=== PATIENT | male | born 1975 | race Caucasian/White ===

== ENCOUNTER 2016-09-21 16:51 | Emergency (ER) | payer BC ==
[~2016-09-21] VITALS: Ht 175.3 cm; Wt 106.6 kg
[2016-09-21 16:53] VITALS: TEMP 36.7; Ht 175.3 cm; Wt 106.6 kg
[2016-09-21 17:41] LABS: HEMATOCRIT 41.2 % (42-52); MEAN CELL VOLUME 87.5 fL (80-100); MEAN CORPUSCULAR HEMOGLOBIN 31.6 pg (25-34); MEAN CORPUSCULAR HGB CONC 36.2 g/dl (32-36); MEAN PLATELET VOLUME 9.7 fL (7.4-10.4); PLATELET COUNT 136 K/uL (130-400); RED BLOOD COUNT 4.71 M/uL (4.7-6.1); WHITE BLOOD COUNT 14.44 K/uL (4.8-10.8)
[2016-09-21 18:00] LABS: BUN/CREATININE RATIO 32.6 (10-20); CALCIUM 8.3 mg/dl (8.5-10.1); CREATININE 0.7 mg/dl (0.60-1.40); POTASSIUM 4.2 mmol/L (3.5-5.1)
[2016-09-21 18:04] LABS: COMPLETE YES; LYMPH ABS # 0.25 K/uL (1.2-3.4); LYMPHOCYTE % 1.7 %; META ABS # 0.13 K/uL (0-0); METAMYELOCYTE % 0.9 %; MYELOCYTE % 0.9 %; NEUTROPHILS % 90.4 %
--- NOTE | 2016-09-21 18:04 | DIAGNOSTIC IMAGING REPORT ---
CT OF THE HEAD WITHOUT CONTRAST CLINICAL HISTORY: Discharge from incision. Brain surgery on August 26, 2016. COMPARISON STUDY: No previous studies for comparison. CT DOSE: 537.48 mGy.cm TECHNIQUE: Helical axial images of the head were obtained without IV contrast. Automated exposure control was utilized for the study. FINDINGS: A frontal temporal craniotomy is noted. There is a small mixed attenuation extra-axial collection within the operative bed that measures 7 mm in thickness. The collection contains a small amount of gas. There is minimal pneumocephalus. Hypodensity within the anterior inferior right frontal lobe could reflect a resection cavity. There is a 4 x 3.6 cm hyperdense focus within the anterior right frontal lobe. Possible involvement of the anterior aspect of the corpus callosum. Findings are suboptimally assessed on this unenhanced exam. There is mass effect upon the frontal horn of the right lateral ventricle. There is a 5 mm of leftward midline shift. Basilar cisterns are patent. There are no CT findings to suggest acute dural sinus thrombosis or acute territorial infarct. Visualized portions of the sinuses and mastoid air cells are clear. There several locules of gas within the left temporal scalp. No significant extracranial fluid collection is present. IMPRESSION: 1. Findings consistent with recent frontotemporal craniotomy. Small mixed attenuation operative bed fluid collection which contains a small amount of gas. Right frontal resection cavity and a 4 x 3.6 cm adjacent hyperdense focus which is suboptimally assessed on this unenhanced exam. Residual tumor would be difficult to exclude. Moderate mass effect with compression of the frontal horn of the right lateral ventricle and minimal leftward midline shift. Correlation with prior postsurgical imaging studies would be of benefit given these nonspecific findings. 2. Minimal scalp soft tissue gas. No significant scalp fluid collection. Electronically signed by: Roe Daniel M.D. 09/21/2016 6:02 PM Dictated Date/Time: 09/21/2016 5:52 PM
[2016-09-21] MEDS ORDERED: PRLSR20 PO (18:14)
[2016-09-21] MEDS ORDERED: LONG ACTING INSULIN SC (18:14)
[2016-09-21] MEDS ORDERED: DXM/4 PO (18:14)
[2016-09-21] MEDS ORDERED: LEVE250T PO (18:14)
[2016-09-21] MEDS ORDERED: LISI-729 PO (18:14)
[2016-09-21] MEDS ORDERED: INSU100I SC (18:14)
[2016-09-21] MEDS ORDERED: AMPICILLIN/SULBACTAM SOD INJ 3,000 MG in SODIUM CHLORIDE 0.9% 100ML 100 ML IV ONE (18:30)
[2016-09-21] MEDS ORDERED: DEXAMETHASONE 4 MG TAB PO ONE (18:30)
[2016-09-21] MEDS ORDERED: LEVETIRACETAM 500 MG TAB PO SCH (18:30)
[2016-09-21] MEDS ORDERED: FAMOTIDINE 20 MG TAB PO ONE (18:30)
--- NOTE | 2016-09-21 19:25 | EMERGENCY ROOM VISIT NOTE ---
History Report prepared by Primitivo: Arturo Taylor Under the Supervision of: Dr. Brandon Whitlock D.O. First contact with patient: 17:00 Chief Complaint: WOUND INFECTION Stated Complaint: DRAINAGE FROM INCICION,BRAIN SURGERY 08-26 Nursing Triage Summary: Patient reports he had a brain resection patient has stage IV globlastoma states this was done in [place] he and his noticed yellow drainage from the incision today. History of Present Illness The patient is a 41 year old male who presents to the Emergency Room with complaints of resolved drainage from a post-surgical incision. The patient had a brain tumor removed on August 26. The patient was diagnosed with Stage IV Glioblastoma. The surgery was performed in [place]. He was walking today when his noticed drainage from the incision, which is currently resolved. He is on Decadron. Patient denies headache, change in vision, fevers, chest pain , shortness of breath, nausea, vomiting, diarrhea, pain with urination, melena, weakness, or numbness. Source of History: patient, spouse/significant other Onset: today Position: head Quality: other (post-surgical bleeding) Timing: resolved Associated Symptoms: No SOB, No chest pain, No diarrhea, No fevers, No headache, No melena, No nausea, No numbness, No urinary symptoms, No vomiting, No weakness Review of Systems See HPI for pertinent positives & negatives. A total of 10 systems reviewed and were otherwise negative. Past Medical & Surgical Medical Problems: (1) Glioblastoma Family History No pertinent family history Social History Smoking Status: Never Smoker Marital Status: Housing Status: lives with family Current/Historical Medications Scheduled Dexamethasone (Decadron), 4 MG PO QID Insulin Lispro (Human) (Humalog), 1 DOSE SC TIDM Levetiracetam (Keppra), 500 MG PO BID Lisinopril (Zestril), Unknown Dose PO QAM Omeprazole (Prilosec), 40 MG PO BID [Long Acting Insulin], 50 UNITS SC HS Scheduled PRN Polyethylene Glycol 3350 (Miralax), 17 GM PO DAILY PRN for Constipation Allergies Coded Allergies: No Known Allergies (Unverified , 09/21/16) Physical Exam Vital Signs Date Time Temp Pulse Resp B/P Pulse Ox O2 Delivery O2 Flow Rate FiO2 09/21/16 20:46 60 20 137/74 98 09/21/16 19:58 63 20 119/70 99 Room Air 09/21/16 18:07 65 16 123/72 97 Room Air 09/21/16 16:53 36.7 73 20 114/73 97 Room Air Physical Exam GENERAL: Sitting up in bed, alert, well appearing, well nourished, no distress, non-toxic HEAD: Sagittal incision tracking from left parietal to right parietal region, purulent yellow discharge expressed EYE EXAM: normal conjunctiva, PERRL and EOM's grossly intact from incision in left parietal region. OROPHARYNX: no exudate, no erythema, lips, buccal mucosa, and tongue normal and mucous membranes are moist NECK: supple, no nuchal rigidity, no adenopathy, non-tender LUNGS: Clear to auscultation. Normal chest wall mechanics HEART: no murmurs, S1 normal and S2 normal ABDOMEN: abdomen soft, non-tender, normo-active bowel sounds, no masses, no rebound or guarding. BACK: Back is symmetrical on inspection and there is no deformity, no midline tenderness, no CVA tenderness. SKIN: no rashes and no bruising UPPER EXTREMITIES: upper extremities are grossly normal. LOWER EXTREMITIES: No pitting edema. NEURO EXAM: Normal sensorium, cranial nerves II-XII intact, normal speech, no weakness of arms, no weakness of legs. No drift. Finger to nose intact. Gross sensation intact. Medical Decision & Procedures ER Provider Diagnostic Interpretation: Radiology results as stated below per my review and the radiologist's interpretation: CT OF THE HEAD WITHOUT CONTRAST CLINICAL HISTORY: Discharge from incision. Brain surgery on August 26, 2016. COMPARISON STUDY: No previous studies for comparison. CT DOSE: 537.48 mGy.cm TECHNIQUE: Helical axial images of the head were obtained without IV contrast. Automated exposure control was utilized for the study. FINDINGS: A frontal temporal craniotomy is noted. There is a small mixed attenuation extra-axial collection within the operative bed that measures 7 mm in thickness. The collection contains a small amount of gas. There is minimal pneumocephalus. Hypodensity within the anterior inferior right frontal lobe could reflect a resection cavity. There is a 4 x 3.6 cm hyperdense focus within the anterior right frontal lobe. Possible involvement of the anterior aspect of the corpus callosum. Findings are suboptimally assessed on this unenhanced exam. There is mass effect upon the frontal horn of the right lateral ventricle. There is a 5 mm of leftward midline shift. Basilar cisterns are patent. There are no CT findings to suggest acute dural sinus thrombosis or acute territorial infarct. Visualized portions of the sinuses and mastoid air cells are clear. There several locules of gas within the left temporal scalp. No significant extracranial fluid collection is present. IMPRESSION: 1. Findings consistent with recent frontotemporal craniotomy. Small mixed attenuation operative bed fluid collection which contains a small amount of gas. Right frontal resection cavity and a 4 x 3.6 cm adjacent hyperdense focus which is suboptimally assessed on this unenhanced exam. Residual tumor would be difficult to exclude. Moderate mass effect with compression of the frontal horn of the right lateral ventricle and minimal leftward midline shift. Correlation with prior postsurgical imaging studies would be of benefit given these nonspecific findings. 2. Minimal scalp soft tissue gas. No significant scalp fluid collection. Electronically signed by: Roe Daniel M.D. 09/21/2016 6:02 PM Dictated Date/Time: 09/21/2016 5:52 PM Laboratory Results 09/21/16 17:25 Red Blood Count 4.71, Mean Corpuscular Volume 87.5, Mean Corpuscular Hemoglobin 31.6, Mean Corpuscular Hemoglobin Concent 36.2, Mean Platelet Volume 9.7 09/21/16 17:25 Test 09/21/16 17:25 White Blood Count 14.44 K/uL (4.8-10.8) Red Blood Count 4.71 M/uL (4.7-6.1) Hemoglobin 14.9 g/dL (14.0-18.0) Hematocrit 41.2 % (42-52) Mean Corpuscular Volume 87.5 fL (80-100) Mean Corpuscular Hemoglobin 31.6 pg (25-34) Mean Corpuscular Hemoglobin Concent 36.2 g/dl (32-36) Platelet Count 136 K/uL (130-400) Mean Platelet Volume 9.7 fL (7.4-10.4) RDW Standard Deviation 44.0 fL (36.4-46.3) RDW Coefficient of Variation 13.7 % (11.5-14.5) Neutrophils % (Manual) 90.4 % Lymphocytes % (Manual) 1.7 % Monocytes % (Manual) 6.1 % Metamyelocytes % 0.9 % Myelocytes % 0.9 % Neutrophils # (Manual) 13.05 K/uL (1.4-6.5) Total Absolute Neutrophils 13.05 K/uL (1.4-6.5) Lymphocytes # (Manual) 0.25 K/uL (1.2-3.4) Total Absolute Lymphocytes 0.25 K/uL (1.2-3.4) Monocytes # (Manual) 0.88 K/uL (0.11-0.59) Metamyelocytes # 0.13 K/uL (0-0) Myelocytes # 0.13 K/uL (0-0) Red Blood Cell Morphology Unremarkable Anion Gap 7.0 mmol/L (3-11) Est Creatinine Clear Calc Drug Dose 165.4 ml/min Estimated GFR () 134.9 Estimated GFR (Non- 116.4 BUN/Creatinine Ratio 32.6 (10-20) Calcium Level 8.3 mg/dl (8.5-10.1) Laboratory results per my review. Medications Administered Medications (Trade) Dose Ordered Sig/Marianne Route Start Time Stop Time Status Last Admin Dose Admin Levetiracetam (Keppra Tab) 500 mg NOW PO 09/21/16 18:30 09/21/16 20:58 DC 09/21/16 18:39 500 MG Dexamethasone (Decadron Tab) 4 mg NOW ONCE PO 09/21/16 18:30 09/21/16 18:31 DC 09/21/16 18:39 4 MG Famotidine 20 mg 20 mg NOW ONCE PO 09/21/16 18:30 09/21/16 18:31 DC 09/21/16 18:39 20 MG Ampicillin Sodium/ Sulbactam Sodium/ Sodium Chloride (Unasyn Inj/Nss 100ml) 108 ml @ 200 mls/hr ONE ONCE IV 09/21/16 18:30 09/21/16 19:02 DC 09/21/16 18:38 200 MLS/HR ED Course ED COURSE: Vital signs were reviewed and were normal. The patients medical record was reviewed The above diagnostic studies were performed and reviewed. ED treatments and interventions as stated above. 1702: The patient was evaluated in room A9b. A complete history and physical examination was performed. 1825: Discussed the case with Dr. Perez, [facility] Neurosurgeon. The patient was accepted for transfer. 1829: Ampicillin Sodium / Sulbactam Sodium 3000 mg / NSS 108 ml @ 200 mls/hr, Famotidine 20 mg PO, Decadron 4 mg PO, Keppra 500 mg PO. 1845: Updated the patient. 1929: Upon reevaluation, the patient is doing well.I discussed my findings with the patient and he understands and agrees with the treatment plan. Based on the patients age, coexisting illnesses, exam and lab findings the decision to treat as an inpatient was made. The patient remained stable while under my care. The patient will be evaluated for further management. Medical Decision Differential diagnosis includes etiologies such as cellulitis, abscess, MRSA infection, DVT, necrotizing fasciitis, dermatitis, drug eruption, as well as others were entertained. Patient is a 41-year-old male who presents the ER postop from brain surgery performed at [facility] in the [facility]. He had a GBM removed on August [address] Quintero. He presents today with no other complaints with the exception of a purulent yellow discharge from the left side of his head. He denies any fevers or headaches. No stiff neck. He does take steroids and Keppra. There was a mild leukocytosis of 14,000. BMP was unremarkable. On exam I was able to express a fair amount of yellow purulent discharge from the left side of his scalp. I do favor this is likely a superficial between the skin and skull. I discussed this with neurosurgery at [facility]. He preferred to evaluate him personally. I discussed this with family and they are agreeable in transfer. Patient was accepted to room 5034. He was given a dose of Ancef. CT of his head shows postoperative changes with a 4 mm shift. Patient has absolutely no complaints and is completely neurologically intact based and consequently I felt it was reasonable to transfer him by private vehicle as the did want to go with him and drive him. Consults Time Called: 1819 Consulting Physician: Dr. Perez, [facility] Neurosurgeon. Returned Call: [phone]: Discussed the case with Dr. Perez, [facility] Neurosurgeon. The patient was accepted for transfer. Impression Primary Impression: Post op infection Scribe Attestation The scribe's documentation has been prepared under my direction and personally reviewed by me in its entirety. I confirm that the note above accurately reflects all work, treatment, procedures, and medical decision making performed by me. Departure Information Dispostion Transfer Acute Care Facility Referrals Kris Soler M.D. (PCP) Patient Instructions My [facility]
[2016-09-21 20:46] VITALS: BP 137/74; PULSE 60; O2SAT 98
--- NOTE | 2016-09-23 11:10 | Pharmacy Progress Note ---
ED Pharmacist Culture FollowUp Date of Service: Sep 23, 2016. Patient's scalp surgical site drainage culture from 09/21/16 is growing mcpherson- sensitive staph aureus. This patient was transferred to [facility] on 09/21. I contacted [facility] today and spoke with his nurse Ivonne ([phone]). The patient is still admitted there. I faxed the culture results to the nurse's station there ([phone]) and Ivonne will forward to the patient's provider(s).
[2016-10-15] MEDS ORDERED: HYDR-3983 PO (10:38)
[2016-10-15] MEDS ORDERED: HMLI7525 SC (10:38)
[2016-10-15] MEDS ORDERED: ALPR-411 PO (10:38)
[2016-10-15] MEDS ORDERED: INSDGI SC (10:38)
[2016-10-15] MEDS ORDERED: PRLSR20 PO (10:38)
[2016-10-28] MEDS ORDERED: TEMO1CAP PO (09:03)
[2016-10-28] MEDS ORDERED: TEMO1CAP11 PO (09:03)
[2016-10-28] MEDS ORDERED: TEMO100I PO (09:04)
[2016-10-28] MEDS ORDERED: ALPHTAB4 PO (09:04)
[2016-10-28] MEDS ORDERED: SERT50TA PO (09:04)
[2017-01-09] MEDS ORDERED: TEMO1CAP4 PO (15:25)
[2017-01-09] MEDS ORDERED: TEMO100I PO (15:25)
[2017-05-08] MEDS ORDERED: METF1TAB85 PO (09:04)
[2017-05-08] MEDS ORDERED: ONDA8TAB6 PO (09:04)
[2017-05-08] MEDS ORDERED: LATA0.5S OPB (09:12)
[2017-05-08] MEDS ORDERED: MECL1TAB42 PO (09:48)
[2017-05-08] MEDS ORDERED: PANT40TA PO (10:25)
[2017-05-08] MEDS ORDERED: LISI10TA PO (10:38)
[2017-05-08] MEDS ORDERED: AMLO-114 PO (10:38)
[2017-05-08] MEDS ORDERED: SERT-234 PO (11:23)
[2017-05-08] MEDS ORDERED: POLY335019 PO (18:14)
== END 2016-09-21 20:35 | disposition short-term general hospital (02) ==
LOC: C.EDB 16:51 → C.EDA 20:35
DX: T81.4XXA Infection following a procedure, initial encounter (principal); Z79.899 Other long term (current) drug therapy; Z85.841 Personal history of malignant neoplasm of brain; Y84.9 Medical procedure, unspecified as the cause of abnormal reaction of the patient, or of later complication, without mention of misadventure at the time of the procedure; Z79.4 Long term (current) use of insulin

== ENCOUNTER → 2016-10-19 | Outpatient (CLI) | payer BC ==
[~2016-10-19] MED LIST: ACET-1256 PO; ALPHTAB4 PO; ALPR-411 PO; AMLO-114 PO; AMOX875T PO; DEXA2TAB PO; DXM/4 PO; HMLI7525 SC; HYD10 PO; HYDR-3983 PO; HYDR10TA52 PO; INSDGI SC; INSU100I2 SQ; INSU100I23 SQ; KPP/1000 PO; LATA0.5S OPB; LEVE250T PO; LEVE500T13 PO; LISI10TA PO; MECL1TAB42 PO; METF1TAB85 PO; ONDA8TAB6 PO; PANT40TA PO; POLY335019 PO; PRLSR20 PO; SERT-234 PO; SERT50TA PO; TEMO100I PO; TEMO1CAP PO; TEMO1CAP11 PO; TEMO1CAP17 PO; TEMO1CAP4 PO; VANC1INJ9 IV.; VANC1INJ94 IV
[2016-10-19 11:59] LABS: BLOOD UREA NITROGEN 18 mg/dl (7-18); CALCIUM 8.6 mg/dl (8.5-10.1); CARBON DIOXIDE 26 mmol/L (21-32); CHLORIDE 98 mmol/L (98-107); CREATININE 0.85 mg/dl (0.60-1.40); GLUCOSE 166 mg/dl (70-99); POTASSIUM 4.1 mmol/L (3.5-5.1); SODIUM 134 mmol/L (136-145)
== END | disposition home or self-care (01) ==
LOC: C.LAB 11:01
PROVIDERS: ATTEND Family Medicine
DX: E11.9 Type 2 diabetes mellitus without complications (principal)

== ENCOUNTER 2016-11-01 20:49 | Inpatient (IN) | payer BC ==
[~2016-11-01] VITALS: Ht 175.3 cm; Wt 100.0 kg
[~2016-11-01 20:49] MED LIST changes: -ACET-1256 PO; -AMLO-114 PO; -AMOX875T PO; -DEXA2TAB PO; -DXM/4 PO; -HYD10 PO; -HYDR10TA52 PO; -INSDGI SC; -INSU100I2 SQ; -INSU100I23 SQ; -KPP/1000 PO; -LATA0.5S OPB; -LEVE500T13 PO; -LISI10TA PO; -MECL1TAB42 PO; -METF1TAB85 PO; -ONDA8TAB6 PO; -PANT40TA PO; -POLY335019 PO; -SERT-234 PO; -TEMO1CAP17 PO; -TEMO1CAP4 PO; -VANC1INJ9 IV.; -VANC1INJ94 IV
[2016-11-01] MEDS ORDERED: LEVETIRACETAM IV 1,000 MG in DEXTROSE 5% 100ML 100 ML IV STA (21:09)
[2016-11-01] MEDS ORDERED: SODIUM CHLORIDE 0.9% 1000ML 1,000 ML IV STA (21:09)
[2016-11-01 22:07] LABS: BASO % 0.3 %; BASO ABS # 0.03 K/uL (0-0.2); COMPLETE YES; EOS % 0.4 %; HEMATOCRIT 34.6 % (42-52); IG% 3.3 %; LYMPH % 14.3 %; LYMPH ABS # 1.52 K/uL (1.2-3.4); MEAN CELL VOLUME 92.8 fL (80-100); MEAN CORPUSCULAR HEMOGLOBIN 31.6 pg (25-34); MEAN CORPUSCULAR HGB CONC 34.1 g/dl (32-36); MEAN PLATELET VOLUME 8.9 fL (7.4-10.4); MONO % 11.1 %; NEUT % 70.6 %; PLATELET COUNT 173 K/uL (130-400); RED BLOOD COUNT 3.73 M/uL (4.7-6.1)
[2016-11-01 22:19] LABS: PARTIAL THROMBOPLASTIN RATIO 1.1; PROTHROMBIN TIME (PATIENT) 11.1 SECONDS (9.0-12.0)
[2016-11-01 22:24] LABS: CREATININE 0.77 mg/dl (0.60-1.40); MAGNESIUM 1.8 mg/dl (1.8-2.4)
--- NOTE | 2016-11-01 22:30 | DIAGNOSTIC IMAGING REPORT ---
CT OF THE HEAD WITHOUT CONTRAST CLINICAL HISTORY: Seizure. Glioblastoma. COMPARISON STUDY: Head CT September 21, 2016 and MRI of the brain September 23, [address] October 17, 2016. CT DOSE: 537.48 mGy.cm TECHNIQUE: Helical axial images of the head were obtained without IV contrast. Automated exposure control was utilized for the study. FINDINGS: Postsurgical findings consistent with a bifrontal craniotomy are noted. A right anterior right frontal resection cavity is noted. An operative bed extra-axial collection has decreased in size since exam of September 21, 2016. This measures 7 mm in thickness and is mixed attenuation. A small amount of blood products with thin the extraaxial collection may be present. A hyperdensity, measuring approximately 4.7 x 4.2 cm along the posterior aspect of the resection bed is again noted. This likely contains a few punctate calcifications. This appears to extend into the rostrum and genu of the corpus callosum. There is adjacent hypodensity. Compression upon the frontal horns of the lateral ventricles is similar to prior exam. There is no hydrocephalus. Basilar cisterns are patent. There are no CT findings to suggest acute dural sinus thrombosis or acute territorial infarct. There are no calvarial fractures. IMPRESSION: 1. Status post bifrontal craniotomy. Interval decrease in size of the small mixed attenuation operative bed extra-axial collection since prior exam. 2. Hyperdense mass-like abnormality along the posterior aspect of the right frontal resection margin which appears to extend into the corpus callosum and across the midline. This is suboptimally assessed by CT but raises the possibility of residual/recurrent tumor. Postsurgical change or radiation necrosis could appear similar. Electronically signed by: Roe Daniel M.D. 11/01/2016 10:28 PM Dictated Date/Time: 11/01/2016 10:11 PM
[2016-11-01 22:31] LABS: CALCIUM 8.5 mg/dl (8.5-10.1)
[2016-11-01 22:33] LABS: URINE APPEARANCE CLEAR (CLEAR); URINE BILIRUBIN NEG (NEG); URINE COLOR YELLOW; URINE NITRITE NEG (NEG); URINE SPECIFIC GRAVITY 1.009 (1.000-1.030); UROBILINOGEN NEG (NEG)
[2016-11-01 22:34] LABS: PHOSPHORUS 2.6 mg/dl (2.5-4.9); THYROID STIMULATING HORMONE 2.01 uIu/ml (0.300-4.500)
[2016-11-01 22:34] LABS: MANUAL MICROSCOPIC REQUIRED? NO; REVIEW REQ? NO
--- NOTE | 2016-11-01 23:20 | EMERGENCY ROOM VISIT NOTE ---
History Report prepared by Primitivo: Manuel Ahmadi Under the Supervision of: Dr. Karan Friedman M.D. First contact with patient: 21:06 Chief Complaint: SEIZURE Stated Complaint: SEIZURE Nursing Triage Summary: Pt has history of brain cancer with resection in August and I&D of incision in September. Pt started chemo Friday. Today patient had a seizure that described as 10 minutes long. Pt fell and hit head during seizure. No signs of trauma. Pt vomited 2 times during seizure. denied post ictal phase. Pt denies any pain at this time. Pt missed dose of Keppra at 1800 History of Present Illness The patient is a 41 year old male who presents to the Emergency Room for evaluation of intermittent episodes of seizure-like activity occurring shortly prior to arrival. He has a history of petit mal seizures and is on Keppra. He has a history of glioblastoma. He had a resection two months ago and an incision & drainage of the incision last month. The patient started chemotherapy and radiation treatments five days ago. He has been working to take less dexamethasone due to side effects and stopped taking it last month. He missed his dose of Keppra three hours ago. Per , the patient called her into the room because he was feeling dizzy shortly prior to arrival. She states that the patient's face went blank, and he fell backwards into her arms. She states that he passed out a second time, falling into her arms again, and did not remember passing out the first time. She states that the patient passed out a third time, and hit his head during the fall. The patient's states that the patient was unconscious following the final episode. She notes that the patient has had problems with short term memory loss this past week. She also notes that the patient self administered his chemotherapy today. The patient also complains of a headache. He denies any visual changes. Source of History: patient, spouse/significant other () Onset: Shortly prior to arrival Quality: other (seizure-like activity) Timing: intermittent, other (episode) Associated Symptoms: + headache Note: The patient denies any visual changes. Review of Systems See HPI for pertinent positives & negatives. A total of 10 systems reviewed and were otherwise negative. Past Medical & Surgical Medical Problems: (1) Glioblastoma Family History No pertinent family history Social History Smoking Status: Former Smoker Marital Status: Housing Status: lives with family Current/Historical Medications Scheduled Rrfsd-J-Tznzvwgqhdpuy (Beano), 1 TAB PO TID Amlodipine (Norvasc), 10 MG PO DAILY Dexamethasone (Decadron), 4 MG PO BID Latanoprost (Xalatan 0.005% Oph Yulia), 1 DROPS OP HS Levetiracetam (Keppra), 1 TAB PO BID Lisinopril (Prinivil), 10 MG PO DAILY Metformin Hcl (Metformin Hcl Er), 1,000 MG PO BID Omeprazole (Prilosec), 20 MG PO BID Sertraline (Zoloft), 1 TAB PO DAILY Temozolomide (Temodar), 10 MG PO DAILY Temozolomide (Temodar), 60 MG PO DAILY Temozolomide (Temodar), 100 MG PO DAILY Scheduled PRN Ondansetron Hcl (Zofran), 8 MG PO Q8 PRN for Nausea Polyethylene Glycol 3350 (Miralax), 17 GM PO DAILY PRN for Constipation Allergies Coded Allergies: No Known Allergies (Unverified , 11/01/16) Physical Exam Vital Signs Date Time Temp Pulse Resp B/P Pulse Ox O2 Delivery O2 Flow Rate FiO2 11/02/16 02:00 94 Nasal Cannula 2.0 11/02/16 01:58 97 21 106/80 88 Room Air 11/02/16 00:03 98 18 105/65 91 Room Air 11/01/16 22:49 94 18 126/77 92 Room Air 11/01/16 22:00 96 18 110/69 92 Room Air 11/01/16 20:58 96 11/01/16 20:56 94 Room Air 11/01/16 20:56 37.1 98 18 111/62 93 Room Air Physical Exam GENERAL: Patient is a healthy-appearing well-nourished HEAD: Normocephalic atraumatic EYES: Ocular movements intact pupils equal and react to light OROPHARYNX mucous membranes are moist no exudates present no erythema or edema present NECK: Supple no nuchal rigidity CHEST: Good equal expansion LUNGS: Clear and equal to auscultation CARDIAC: Normal S1 and S2 ABDOMEN: Soft nontender no guarding BACK: No CVA tenderness EXTREMITIES: No pain upon palpation normal muscle strength in all groups no clubbing cyanosis or edema NEURO: Patient is following commands is answering questions appropriately. Alert and oriented x3 Cranial Nerves 2-12 grossly intact Medical Decision & Procedures ER Provider Diagnostic Interpretation: CT results as stated below per my review and radiologist interpretation: CT OF THE HEAD WITHOUT CONTRAST FINDINGS: Postsurgical findings consistent with a bifrontal craniotomy are noted. A right anterior right frontal resection cavity is noted. An operative bed extra-axial collection has decreased in size since exam of September 21, 2016. This measures 7 mm in thickness and is mixed attenuation. A small amount of blood products with thin the extraaxial collection may be present. A hyperdensity, measuring approximately 4.7 x 4.2 cm along the posterior aspect of the resection bed is again noted. This likely contains a few punctate calcifications. This appears to extend into the rostrum and genu of the corpus callosum. There is adjacent hypodensity. Compression upon the frontal horns of the lateral ventricles is similar to prior exam. There is no hydrocephalus. Basilar cisterns are patent. There are no CT findings to suggest acute dural sinus thrombosis or acute territorial infarct. There are no calvarial fractures. IMPRESSION: 1. Status post bifrontal craniotomy. Interval decrease in size of the small mixed attenuation operative bed extra-axial collection since prior exam. 2. Hyperdense mass-like abnormality along the posterior aspect of the right frontal resection margin which appears to extend into the corpus callosum and across the midline. This is suboptimally assessed by CT but raises the possibility of residual/recurrent tumor. Postsurgical change or radiation necrosis could appear similar. Electronically signed by: Roe Daniel M.D. MRI results per [facility] and my review. MRI HEAD: Prior CT 11/01/16 report available. Postoperative changes in the right frontal lobe with heterogeneous enhancement at the posterior aspect of the postoperative bed, cannot exclude residual/ recurrent tumor. Compare to prior MRI if available. Abnormal signal in the right frontal lobe extending across the corpus callosum with mass effect on the bilateral frontal horns, as seen on prior CT 10/17/16. An 8 mm rounded focus of restricted diffusion in the right frontal lobe at the inferior aspect of the resection bed. Heterogeneous right frontal extra-axial collection again seen. Laboratory Results 11/01/16 21:55 Red Blood Count 3.73, Mean Corpuscular Volume 92.8, Mean Corpuscular Hemoglobin 31.6, Mean Corpuscular Hemoglobin Concent 34.1, Mean Platelet Volume 8.9, Neutrophils (%) (Auto) 70.6, Lymphocytes (%) (Auto) 14.3, Monocytes (%) (Auto) 11.1, Eosinophils (%) (Auto) 0.4, Basophils (%) (Auto) 0.3, Neutrophils # (Auto ) 7.48, Lymphocytes # (Auto) 1.52, Monocytes # (Auto) 1.18, Eosinophils # (Auto ) 0.04, Basophils # (Auto) 0.03 11/01/16 21:55 Test 11/01/16 21:55 11/01/16 22:25 White Blood Count 10.60 K/uL (4.8-10.8) Red Blood Count 3.73 M/uL (4.7-6.1) Hemoglobin 11.8 g/dL (14.0-18.0) Hematocrit 34.6 % (42-52) Mean Corpuscular Volume 92.8 fL (80-100) Mean Corpuscular Hemoglobin 31.6 pg (25-34) Mean Corpuscular Hemoglobin Concent 34.1 g/dl (32-36) Platelet Count 173 K/uL (130-400) Mean Platelet Volume 8.9 fL (7.4-10.4) Neutrophils (%) (Auto) 70.6 % Lymphocytes (%) (Auto) 14.3 % Monocytes (%) (Auto) 11.1 % Eosinophils (%) (Auto) 0.4 % Basophils (%) (Auto) 0.3 % Neutrophils # (Auto) 7.48 K/uL (1.4-6.5) Lymphocytes # (Auto) 1.52 K/uL (1.2-3.4) Monocytes # (Auto) 1.18 K/uL (0.11-0.59) Eosinophils # (Auto) 0.04 K/uL (0-0.5) Basophils # (Auto) 0.03 K/uL (0-0.2) RDW Standard Deviation 48.2 fL (36.4-46.3) RDW Coefficient of Variation 14.2 % (11.5-14.5) Immature Granulocyte % (Auto) 3.3 % Immature Granulocyte # (Auto) 0.35 K/uL (0.00-0.02) Prothrombin Time 11.1 SECONDS (9.0-12.0) Prothromb Time International Ratio 1.0 (0.9-1.1) Activated Partial Thromboplast Time 29.0 SECONDS (21.0-31.0) Partial Thromboplastin Ratio 1.1 Anion Gap 9.0 mmol/L (3-11) Est Creatinine Clear Calc Drug Dose 65.6 ml/min Estimated GFR () 129.7 Estimated GFR (Non- 111.9 BUN/Creatinine Ratio 17.0 (10-20) Calcium Level 8.5 mg/dl (8.5-10.1) Phosphorus Level 2.6 mg/dl (2.5-4.9) Magnesium Level 1.8 mg/dl (1.8-2.4) Thyroid Stimulating Hormone (TSH) 2.010 uIu/ml (0.300-4.500) Urine Color YELLOW Urine Appearance CLEAR (CLEAR) Urine pH 7.0 (4.5-7.5) Urine Specific Valier 1.009 (1.000-1.030) Urine Protein NEG (NEG) Urine Glucose (UA) TRACE (NEG) Urine Ketones 1+ (NEG) Urine Occult Blood NEG (NEG) Urine Nitrite NEG (NEG) Urine Bilirubin NEG (NEG) Urine Urobilinogen NEG (NEG) Urine Leukocyte Esterase NEG (NEG) Labs reviewed by ED physician. Medications Administered Medications (Trade) Dose Ordered Sig/Marianne Route Start Time Stop Time Status Last Admin Dose Admin Levetiracetam 1000 mg/Dextrose 110 ml @ 440 mls/hr ONE STAT IV 11/01/16 21:09 11/01/16 21:23 DC 11/01/16 21:59 440 MLS/HR Sodium Chloride (Nss 1000ml) 1,000 ml @ 999 mls/hr Q1H1M STAT IV 11/01/16 21:09 11/01/16 22:09 DC 11/01/16 21:59 999 MLS/HR ECG Indication: other (seizure) Rate (beats per minute): 98 Rhythm: normal sinus Findings: no acute ischemic change, no ectopy ED Course 2108: Ordered Sodium Chloride 1000 ml @ 999 mls/hr, Levetiracetam 1000 mg/ Dextrose 110 mL @ 440 mL/hr IV. 2112: Past medical records reviewed. The patient was evaluated in room B6. A complete history and physical examination was performed. 2315: Upon reexamination the patient is resting comfortably. I discussed results and treatment plan with the patient. He verbalizes agreement and understanding. I spoke with Dr. Abdul from the [facility] [place] [facility] Hospitalist Service. The patient will be evaluated for further management. Medical Decision Differential diagnosis: Etiologies such as infection, hypoglycemia, electrolyte abnormalities, cardiac sources, intracerebral event, trauma, toxicologic, neurologic, as well as others were entertained. This is a 41-year-old male who presents emergency Department with new onset seizure. The patient is being treated for glioblastoma stage IV and recently had a resection performed in [place]. Based on the 10 minute seizure that the patient had he was started on Keppra here in emergency department. He was sent for CAT scan of the head which was concerning for either radiation necrosis or recurrent tumor. Based on the findings I did send the patient for an MRI of the head. Also based on these findings and because of this a long holiday weekend I recommended that the patient be admitted to the hospital until he can see both oncology as well as neurology. Patient and family were in agreement with the treatment plan. Consults Time Called: [phone] Consulting Physician: Dr. Reese -Neurology Returned Call: [phone] Discussed the patient's case. Dr. Reese recommends that the patient have an increase to his dose of Keppra, and be hospitalized for observation. Additional Consults: Time Called: 2303 Consulted Physician: Dr. Nielsen -Oncology Returned Call: [phone] Additional Comments: I updated Dr. Nielsen on the patient's case. Time Called: 2309 Consulted Physician: Dr. Abdul -[facility] [place] Returned Call: 0 Additional Comments: I discussed the patient's case with Dr. Abdul, he has agreed to evaluate the patient for further management and care. Impression Primary Impression: Seizure Scribe Attestation The scribe's documentation has been prepared under my direction and personally reviewed by me in its entirety. I confirm that the note above accurately reflects all work, treatment, procedures, and medical decision making performed by me. Departure Information Dispostion Being Evaluated By Hospitalist Prescriptions Dexamethasone (DECADRON) 4 Mg Tab 4 MG PO BID, #60 TAB Prov: Eugene Aleman CRNP 11/02/16 Levetiracetam (KEPPRA) 1,000 Mg Tab 1 TAB PO BID for 30 Days, #60 TAB 5 Refills Prov: Eugene Aleman CRNP 11/02/16 Referrals Kris Soler M.D. (PCP) Patient Instructions [facility]
[2016-11-02] MEDS ORDERED: GADAVIST IV PRN
[2016-11-02] MEDS ORDERED: ALUMINUM/MAGNESIUM/SIMETH (MAALOX MAX) 30 ML UDC PO PRN (03:15)
[2016-11-02] MEDS ORDERED: POLYETHYLENE (MIRALAX) 17 GM PACK PO PRN (03:15)
[2016-11-02] MEDS ORDERED: ACETAMINOPHEN 325 MG TAB PO PRN (03:15)
[2016-11-02] MEDS ORDERED: NON-FORMULARY MEDICATION (Polyethylene Glycol 3350 (Miralax) 17 GM) PO PRN (03:15)
[2016-11-02] MEDS ORDERED: MAGNESIUM HYDROXIDE SUSP 30 ML UDC PO PRN (03:15)
[2016-11-02] MEDS ORDERED: ONDANSETRON INJ 2 MG/ML 2 ML VIAL IV PRN (03:15)
[2016-11-02] MEDS ORDERED: MoRPHine SULFATE 2 MG/ML CARP IV PRN (03:30)
--- NOTE | 2016-11-02 03:45 | History and Physical ---
History & Physical Date & Time of Service: November 02, 2016 at 03:11 Chief Complaint: Seizure Primary Care Physician: Kris Soler M.D. History of Present Illness Source: patient 41 y/o M Hx DM, HTN, SIMBA, Glioblastoma and seizure disorder. Presents following 2 seizure-like episodes where he lost consciousness for a few minutes. No incontinence or tongue biting was described. The pt had surgical resection of his tumor at [facility] in [place] 2 months prior and then required incision and drainage of the wound following due to infection. He sees a specialist at [facility] in addition to a local oncologist and recently began chemotherapy with Temozolomide and radiation. He was also on Dexamethasone for an extended period which he tapered off of and discontinued one week prior. He has a SHORT at the time of admission and denies fevers. Imaging obtained in the ER is nondiagnostic as it is read a possible extension of the tumor vs necrosis as an effect of radiation. Past Medical/Surgical History Medical Problems: (1) Glioblastoma Status: Chronic 2) HTN 3) HPL 4) DM 2 5) SIMBA Family History No pertinent family history Social History Smoking Status: Former Smoker Marital Status: Allergies Coded Allergies: No Known Allergies (Unverified , 11/01/16) Home Medications Scheduled [id number]-Q-Wiynknjcbufdz (Beano), 1 TAB PO TID Amlodipine (Norvasc), 10 MG PO DAILY Latanoprost (Xalatan 0.005% Oph Yulia), 1 DROPS OP HS Levetiracetam (Keppra), 500 MG PO BID Lisinopril (Prinivil), 10 MG PO DAILY Metformin Hcl (Metformin Hcl Er), 1,000 MG PO BID Omeprazole (Prilosec), 20 MG PO BID Sertraline (Zoloft), 1 TAB PO DAILY Temozolomide (Temodar), 10 MG PO DAILY Temozolomide (Temodar), 60 MG PO DAILY Temozolomide (Temodar), 100 MG PO DAILY Scheduled PRN Ondansetron Hcl (Zofran), 8 MG PO Q8 PRN for Nausea Polyethylene Glycol 3350 (Miralax), 17 GM PO DAILY PRN for Constipation Review of Systems Constitutional: No chills, No fever, No sweats Eyes: No worsening of vision ENT: No hearing loss, No nasal symptoms, No unusual epistaxis Respiratory: No cough, No sputum, No wheezing Cardiovascular: No PND, No chest pain, No orthopnea Abdomen: No nausea, No pain, No vomiting Musculoskeletal: No joint pain Genitourinary - Male: No dysuria, No hematuria, No urinary frequency Neurologic: + memory loss (chronic mild memory impairment), + problem reported (seizure activity - LOC x 2 as above) Psychiatric: No depression symptoms Endocrine: No fatigue Hematologic / Lymphatic: No abnormal bleeding/bruising Integumentary: No rash Physical Exam Vital Signs Date Time Temp Pulse Resp B/P Pulse Ox O2 Delivery O2 Flow Rate FiO2 11/02/16 02:00 94 Nasal Cannula 2.0 11/02/16 01:58 97 21 106/80 88 Room Air 11/02/16 00:03 98 18 105/65 91 Room Air 11/01/16 22:49 94 18 126/77 92 Room Air 11/01/16 22:00 96 18 110/69 92 Room Air 11/01/16 20:58 96 11/01/16 20:56 94 Room Air 11/01/16 20:56 37.1 98 18 111/62 93 Room Air General Appearance: WD/WN, no apparent distress Head: normocephalic, + pertinent finding (A well-healed sagital scar is present ) Eyes: normal inspection, PERRL, EOMI ENT: normal ENT inspection, pharynx normal Neck: supple, no JVD Respiratory/Chest: chest non-tender, lungs clear, normal breath sounds, no respiratory distress, no accessory muscle use Cardiovascular: regular rate, rhythm, no edema, no gallop, no JVD, no murmur, normal peripheral pulses Abdomen/GI: normal bowel sounds, non tender, soft Back: normal inspection, no CVA tenderness Extremities/Musculoskelatal: normal inspection, no calf tenderness, normal capillary refill, no pedal edema, normal range of motion Neurologic/Psych: metal caster II-XII nml as tested, no motor/sensory deficits, alert, normal mood/affect, normal reflexes, oriented x 3 Skin: normal color, warm/dry, no rash Diagnostics Laboratory Results Results Past 24 Hours Test 11/01/16 21:55 11/01/16 22:25 Range/Units White Blood Count 10.60 4.8-10.8 K/uL Red Blood Count 3.73 4.7-6.1 M/uL Hemoglobin 11.8 14.0-18.0 g/dL Hematocrit 34.6 42-52 % Mean Corpuscular Volume 92.8 80-100 fL Mean Corpuscular Hemoglobin 31.6 25-34 pg Mean Corpuscular Hemoglobin Concent 34.1 32-36 g/dl Platelet Count 173 130-400 K/uL Mean Platelet Volume 8.9 7.4-10.4 fL Neutrophils (%) (Auto) 70.6 % Lymphocytes (%) (Auto) 14.3 % Monocytes (%) (Auto) 11.1 % Eosinophils (%) (Auto) 0.4 % Basophils (%) (Auto) 0.3 % Neutrophils # (Auto) 7.48 1.4-6.5 K/uL Lymphocytes # (Auto) 1.52 1.2-3.4 K/uL Monocytes # (Auto) 1.18 0.11-0.59 K/uL Eosinophils # (Auto) 0.04 0-0.5 K/uL Basophils # (Auto) 0.03 0-0.2 K/uL RDW Standard Deviation 48.2 36.4-46.3 fL RDW Coefficient of Variation 14.2 11.5-14.5 % Immature Granulocyte % (Auto) 3.3 % Immature Granulocyte # (Auto) 0.35 0.00-0.02 K/uL Prothrombin Time 11.1 9.0-12.0 SECONDS Prothromb Time International Ratio 1.0 0.9-1.1 Activated Partial Thromboplast Time 29.0 21.0-31.0 SECONDS Partial Thromboplastin Ratio 1.1 Sodium Level 134 136-145 mmol/L Potassium Level 4.0 3.5-5.1 mmol/L Chloride Level 99 98-107 mmol/L Carbon Dioxide Level 26 21-32 mmol/L Anion Gap 9.0 3-11 mmol/L Blood Urea Nitrogen 13 7-18 mg/dl Creatinine 0.77 0.60-1.40 mg/dl Est Creatinine Clear Calc Drug Dose 65.6 ml/min Estimated GFR () 129.7 Estimated GFR (Non- 111.9 BUN/Creatinine Ratio 17.0 10-20 Random Glucose 216 70-99 mg/dl Calcium Level 8.5 8.5-10.1 mg/dl Phosphorus Level 2.6 2.5-4.9 mg/dl Magnesium Level 1.8 1.8-2.4 mg/dl Thyroid Stimulating Hormone (TSH) 2.010 0.300-4.500 uIu/ml Urine Color YELLOW Urine Appearance CLEAR CLEAR Urine pH 7.0 4.5-7.5 Urine Specific Whitmore 1.009 1.000-1.030 Urine Protein NEG NEG Urine Glucose (UA) TRACE NEG Urine Ketones 1+ NEG Urine Occult Blood NEG NEG Urine Nitrite NEG NEG Urine Bilirubin NEG NEG Urine Urobilinogen NEG NEG Urine Leukocyte Esterase NEG NEG Diagnostic Radiology CT head 1. Status post bifrontal craniotomy. Interval decrease in size of the small mixed attenuation operative bed extra-axial collection since prior exam. 2. Hyperdense mass-like abnormality along the posterior aspect of the right frontal resection margin which appears to extend into the corpus callosum and across the midline. This is suboptimally assessed by CT but raises the possibility of residual/recurrent tumor. Postsurgical change or radiation necrosis could appear similar. Contrast MRI did not provide any additional information Impression Assessment and Plan 41 y/o M Hx DM, HTN, SIMBA, Glioblastoma and seizure disorder. Presents following 2 seizure-like episodes where he lost consciousness for a few minutes. No incontinence or tongue biting was described. The pt had surgical resection of his tumor at [facility] in [place] 2 months prior. He was also on Dexamethasone for an extended period which he tapered off of slowly and discontinued one week prior. He has a SHORT at the time of admission and denies fevers. Imaging obtained in the ER is nondiagnostic as it is read a possible extension of the tumor vs necrosis as an effect of radiation. 1) Seizure - neurology was contacted and will see the pt in the AM - advised on an increased dose of Keppra which was started in the ER. He will be monitored on telemetry overnight. Differential may include effect of chemotherapy or radiation, discontinuation of Dexamethasone or extension of the Tumor. 2) Glioblastoma - chemo is taken in pill form and is held pending AM neurology eval. We can consult his oncologist or contact [facility] if his seizures recur. 3) DM - will cont Metformin 4) HTN - Cont Lisinopril, Amlodipine 5) SIMBA - prefers to sleep w/NC this clifton although he is normally compliant with CPAP. Full code - SCDs Total time for this admit including review of labs, meds, CT/MRI - discussion with pt and ER attending - 35 min Level of Care Telemetry Resuscitation Status FULL RESUSCITATION VTE Prophylaxis VTE Risk Assessment Done? Y/N: Yes Risk Level: Low Given or contraindicated: SCD's
[2016-11-02 04:30] VITALS: BP 115/77; PULSE 95; TEMP 36.7; O2SAT 94; Ht 175.3 cm; Wt 100.0 kg
[2016-11-02] MEDS ORDERED: METFORMIN HCL 500 MG TAB PO SCH (07:30)
[2016-11-02 08:27] VITALS: BP 127/73; PULSE 100; TEMP 36.9; O2SAT 92
[2016-11-02] MEDS ORDERED: ALPHA D GALACTOSIDASE PO SCH (09:00)
[2016-11-02] MEDS ORDERED: PANTOprazole SOD 40 MG TAB PO SCH (09:00)
[2016-11-02] MEDS ORDERED: LEVETIRACETAM 500 MG TAB PO SCH (09:00)
[2016-11-02] MEDS ORDERED: AMLODIPINE BESYLATE 5 MG TAB PO SCH (09:00)
[2016-11-02] MEDS ORDERED: TEMOZOLOMIDE 5 MG PO SCH (09:00)
[2016-11-02] MEDS ORDERED: LISINOPRIL 10 MG TAB PO SCH (09:00)
[2016-11-02] MEDS ORDERED: SERTRALINE HCL 50 MG TAB PO SCH (09:00)
[2016-11-02] MEDS ORDERED: TEMOzolomide 20 MG CAP PO SCH (09:00)
[2016-11-02] MEDS ORDERED: TEMOZOLOMIDE 100 MG PO SCH (09:00)
--- NOTE | 2016-11-02 11:06 | Oncology Consultation ---
Oncology/Heme Consultation Date of Consultation: November 02, 2016. Attending Physician: Abel Abdul M.D. Reason for Consultation: History of glioblastoma History of Present Illness Mr. Khan is a 41-year-old gentleman with a history of glioblastoma multiform status post craniotomy and earlier this week began chemoradiation. The chemotherapy at that time was Temodar 75 mg meter squared. He presented last evening with what sounds like seizure activity. He looks very comfortable today. His and he states that the only time he had a seizure before was right before the original craniotomy. He developed headaches in May 2016. The headaches grew in intensity. He was taken to [facility] in [facility]. An MRI of the brain demonstrated a multicystic enhancing right medial frontal lobe mass was surrounding vasogenic edema. In August of this year craniotomy and tumor debulking occurred. The diagnosis is glioblastoma multiforme. He did seek consultation at [facility] but was not eligible for clinical study and chemoradiation was recommended. There was a delay in beginning therapy due to an infection at the site of the procedure that has since resolved. Past Medical/Surgical History Medical Problems: (1) Post op infection Status: Acute (2) Seizure Status: Acute Family History No pertinent family history Father of multiple sclerosis mother has diabetes Social History Negative for smoking or significant alcohol consumption Smoking Status: Former Smoker Marital Status: Housing Status: lives with family Allergies Coded Allergies: No Known Allergies (Unverified , 11/01/16) Home Medications Scheduled [id number]-[id number]-Navjofhvzwipl (Beano), 1 TAB PO TID Amlodipine (Norvasc), 10 MG PO DAILY Latanoprost (Xalatan 0.005% Oph Yulia), 1 DROPS OP HS Levetiracetam (Keppra), 500 MG PO BID Lisinopril (Prinivil), 10 MG PO DAILY Metformin Hcl (Metformin Hcl Er), 1,000 MG PO BID Omeprazole (Prilosec), 20 MG PO BID Sertraline (Zoloft), 1 TAB PO DAILY Temozolomide (Temodar), 10 MG PO DAILY Temozolomide (Temodar), 60 MG PO DAILY Temozolomide (Temodar), 100 MG PO DAILY Scheduled PRN Ondansetron Hcl (Zofran), 8 MG PO Q8 PRN for Nausea Polyethylene Glycol 3350 (Miralax), 17 GM PO DAILY PRN for Constipation Current Inpatient Medications Current Inpatient Medications Medications (Trade) Dose Ordered Sig/Marianne Route Start Time Stop Time Status Last Admin Dose Admin Gadobutrol (Gadavist) 10 mmol UD PRN IV 11/02/16 00:00 11/06/16 00:00 Acetaminophen (Tylenol Tab) 650 mg Q4H PRN PO 11/02/16 03:15 12/02/16 03:14 Al Hydrox/Mg Hydrox/Simethicone (Maalox Max Susp) 15 ml Q4H PRN PO 11/02/16 03:15 12/02/16 03:14 Magnesium Hydroxide (Milk Of Magnesia Susp) 30 ml Q12H PRN PO 11/02/16 03:15 12/02/16 03:14 Ondansetron HCl (Zofran Inj) 4 mg Q6H PRN IV 11/02/16 03:15 12/02/16 03:14 Polyethylene (Miralax Powder Packet) 17 gm DAILY PRN PO 11/02/16 03:15 12/02/16 03:14 Levetiracetam (Keppra Tab) 1,000 mg BID PO 11/02/16 09:00 12/02/16 08:59 11/02/16 08:24 1,000 MG Amlodipine Besylate (Norvasc Tab) 10 mg DAILY PO 11/02/16 09:00 12/02/16 08:59 11/02/16 08:24 10 MG Latanoprost (Xalatan Oph Soln) 1 drops HS OP 11/02/16 21:00 12/02/16 20:59 Lisinopril (Zestril Tab) 10 mg DAILY PO 11/02/16 09:00 12/02/16 08:59 11/02/16 08:24 10 MG Sertraline HCl (Zoloft Tab) 50 mg DAILY PO 11/02/16 09:00 12/02/16 08:59 11/02/16 08:24 50 MG Metformin HCl (Glucophage Tab) 1,000 mg BIDM PO 11/02/16 07:30 12/02/16 07:29 11/02/16 08:24 1,000 MG Pantoprazole Sodium (Protonix Tab) 40 mg BID PO 11/02/16 09:00 12/02/16 08:59 11/02/16 08:23 40 MG Morphine Sulfate (MoRPHine SULFATE INJ) 2 mg Q3H PRN IV 11/02/16 03:30 11/16/16 03:29 Review of Systems Constitutional: Negative for weight loss, night sweats, or fever Eyes: Negative for event change of vision ENT: Negative for epistaxis, nasal discharge, sore throat, or deafness Cardiovascular: Negative for chest pain, palpitations, dizziness, diaphoresis Respiratory: Negative for new shortness of breath,hemoptysis, or purulent cough Gastrointestinal: Negative for diarrhea, hematemesis, melena, nausea, vomiting , or dyspepsia Integumentary (skin): Negative for rash or jaundice discoloration Genitourinary: Negative for urinary frequency, hematuria, or dysuria Neurological: Negative for weakness, currently or headache. He does appear to have had seizure activity last evening. Lymphatic/Hematologic: Negative for petechiae, bleeding or new adenopathy Musculoskeletal: Negative for new joint or back pain Allergic/Immunologic: Negative for unusual rash or pruritis. Physical Exam Date Time Temp Pulse Resp B/P Pulse Ox O2 Delivery O2 Flow Rate FiO2 11/02/16 08:27 36.9 100 22 127/73 92 Room Air 11/02/16 04:30 36.7 95 18 115/77 94 Nasal Cannula 2.0 11/02/16 03:33 91 18 106/69 92 11/02/16 02:00 94 Nasal Cannula 2.0 11/02/16 01:58 97 21 106/80 88 Room Air 11/02/16 00:03 98 18 105/65 91 Room Air 11/01/16 22:49 94 18 126/77 92 Room Air 11/01/16 22:00 96 18 110/69 92 Room Air 11/01/16 20:58 96 11/01/16 20:56 94 Room Air 11/01/16 20:56 37.1 98 18 111/62 93 Room Air Constitutional: vitals are stable. Eyes: Eyes are MICAH EOMI without conjuctival erythema or icterus. ENT: External examination was negative for masses. Neck: Negative for masses or palpable thyromegaly Respiratory: Lung sounds were generally clear bilaterally Cardiovascular: Heart was RRR without significant murmur, gallops aoe rubs Gastrointestinal: No palpable hepatic or splenomegaly. The abdomen was soft with normal bowel sounds. Lymphatic system: there was no palpable peripheral lymphadenopathy Musculoskeletal System: The musculoskeletal system seemed concordant with age. Skin: The skin was negative for jaundice. Neurologic exam: The exam was negative for any focal findings. Deep tendon reflexes were equal and symmetrical. Psychiatric exam: Was essentially negative with normal mood and effect. Extremities: Negative for edema erythema Laboratory Results Last 24 Hours Test 11/01/16 21:55 11/01/16 22:25 White Blood Count 10.60 K/uL Red Blood Count 3.73 M/uL Hemoglobin 11.8 g/dL Hematocrit 34.6 % Mean Corpuscular Volume 92.8 fL Mean Corpuscular Hemoglobin 31.6 pg Mean Corpuscular Hemoglobin Concent 34.1 g/dl Platelet Count 173 K/uL Mean Platelet Volume 8.9 fL Neutrophils (%) (Auto) 70.6 % Lymphocytes (%) (Auto) 14.3 % Monocytes (%) (Auto) 11.1 % Eosinophils (%) (Auto) 0.4 % Basophils (%) (Auto) 0.3 % Neutrophils # (Auto) 7.48 K/uL Lymphocytes # (Auto) 1.52 K/uL Monocytes # (Auto) 1.18 K/uL Eosinophils # (Auto) 0.04 K/uL Basophils # (Auto) 0.03 K/uL RDW Standard Deviation 48.2 fL RDW Coefficient of Variation 14.2 % Immature Granulocyte % (Auto) 3.3 % Immature Granulocyte # (Auto) 0.35 K/uL Prothrombin Time 11.1 SECONDS Prothromb Time International Ratio 1.0 Activated Partial Thromboplast Time 29.0 SECONDS Partial Thromboplastin Ratio 1.1 Sodium Level 134 mmol/L Potassium Level 4.0 mmol/L Chloride Level 99 mmol/L Carbon Dioxide Level 26 mmol/L Anion Gap 9.0 mmol/L Blood Urea Nitrogen 13 mg/dl Creatinine 0.77 mg/dl Est Creatinine Clear Calc Drug Dose 65.6 ml/min Estimated GFR () 129.7 Estimated GFR (Non- 111.9 BUN/Creatinine Ratio 17.0 Random Glucose 216 mg/dl Calcium Level 8.5 mg/dl Phosphorus Level 2.6 mg/dl Magnesium Level 1.8 mg/dl Thyroid Stimulating Hormone (TSH) 2.010 uIu/ml Urine Color YELLOW Urine Appearance CLEAR Urine pH 7.0 Urine Specific [place] 1.009 Urine Protein NEG Urine Glucose (UA) TRACE Urine Ketones 1+ Urine Occult Blood NEG Urine Nitrite NEG Urine Bilirubin NEG Urine Urobilinogen NEG Urine Leukocyte Esterase NEG Assessment & Plan History of resected blastoma recently started on chemoradiation represented last evening with new seizure activity. We will try to sort through and hopefully be able to compare scans done here as well as those that may be part of other the EHR. As I understand according to the a disc of MRI images of the MRI done postoperatively in [place] were uploaded into what I suspect is the [facility] EHR. Neurology has been consulted and anticonvulsants are ongoing. He has recently weaned off of Decadron and perhaps a resumption of Decadron at 4 mg twice a day would be a fair medicine to add at this juncture. Lets hold off on the Temodar today but if he is stable throughout the day then let us resume it is a daily medication tomorrow.
[2016-11-02 11:39] VITALS: BP 106/70; PULSE 102; TEMP 37.6; O2SAT 92
--- NOTE | 2016-11-02 11:54 | Neurology Consultation ---
Neurology Consultation Date of Consultation: November 02, 2016. Attending Physician: Abel Abdul M.D. Primary Care Physician: Kris Soler M.D. Reason for Consultation: "Seizure" History of Present Illness Source: patient, spouse, hospital records The patient is a 41-year-old male who was admitted to the hospital yesterday after a witnessed seizure-like episode. The patient's spouse is present at bedside and indicates that he suddenly developed a blank stare and fell backwards into her arms. He became limp and fell to the floor striking his head. There is a loss of consciousness for several minutes. No observed tonic- clonic activity or shaking of the limbs. Afterwards, the patient was amnestic for the episode but otherwise seemed to be behaving normally. Past medical history notable for a right hemispheric glioblastoma that was diagnosed earlier this year. He has undergone tumor resection at a hospital in [place] and is currently prescribed chemotherapy, Temodar, and recently started radiation treatments. The patient has not followed with a neurologist although his neurosurgeon has been prescribing Keppra. According to the patient's spouse, he had been having suspected partial seizures characterized by sudden development of a blank stare and altered awareness around the time his tumor was diagnosed. It does not sound like he has had an EEG completed. His dosage of Keppra has been 500 mg twice daily and he has been compliant with this medication. He had been prescribed Decadron to manage tumor associated vasogenic edema although this medication had been tapered off. He was given an intravenous loading dose of Keppra while in the emergency department. His maintenance dosage of Keppra has been increased to 1000 mg twice daily. Currently, the patient complains of mild headache. He denies nausea although his indicates that he experienced some emesis during the recent seizure-like episode. Otherwise, the patient feels like his usual self. He denies weakness, sensory loss, or other gross neurological deficits or impairments. A CT of the head completed in the emergency department reveals changes consistent with a previous bifrontal craniotomy. There is a persistent but improving right-sided extra-axial collection as well as a stable hyperdense mass within the previously identified resection bed. There are some changes within the adjacent corpus callosum suggestive of either post radiation necrosis or possibly tumor spread. There is no hydrocephalus. Images and report reviewed. Past Medical/Surgical History Medical Problems: (1) Post op infection Status: Acute (2) Seizure Status: Acute Family History Noncontributory at this time Social History Marital Status: Housing Status: lives with family Allergies Coded Allergies: No Known Allergies (Unverified , 11/01/16) Current Inpatient Medications Current Inpatient Medications Medications (Trade) Dose Ordered Sig/Marianne Route Start Time Stop Time Status Last Admin Dose Admin Gadobutrol (Gadavist) 10 mmol UD PRN IV 11/02/16 00:00 11/06/16 00:00 Acetaminophen (Tylenol Tab) 650 mg Q4H PRN PO 11/02/16 03:15 12/02/16 03:14 Al Hydrox/Mg Hydrox/Simethicone (Maalox Max Susp) 15 ml Q4H PRN PO 11/02/16 03:15 12/02/16 03:14 Magnesium Hydroxide (Milk Of Magnesia Susp) 30 ml Q12H PRN PO 11/02/16 03:15 12/02/16 03:14 Ondansetron HCl (Zofran Inj) 4 mg Q6H PRN IV 11/02/16 03:15 12/02/16 03:14 Polyethylene (Miralax Powder Packet) 17 gm DAILY PRN PO 11/02/16 03:15 12/02/16 03:14 Levetiracetam (Keppra Tab) 1,000 mg BID PO 11/02/16 09:00 12/02/16 08:59 11/02/16 08:24 1,000 MG Amlodipine Besylate (Norvasc Tab) 10 mg DAILY PO 11/02/16 09:00 12/02/16 08:59 11/02/16 08:24 10 MG Latanoprost (Xalatan Oph Soln) 1 drops HS OP 11/02/16 21:00 12/02/16 20:59 Lisinopril (Zestril Tab) 10 mg DAILY PO 11/02/16 09:00 12/02/16 08:59 11/02/16 08:24 10 MG Sertraline HCl (Zoloft Tab) 50 mg DAILY PO 11/02/16 09:00 12/02/16 08:59 11/02/16 08:24 50 MG Metformin HCl (Glucophage Tab) 1,000 mg BIDM PO 11/02/16 07:30 12/02/16 07:29 11/02/16 08:24 1,000 MG Pantoprazole Sodium (Protonix Tab) 40 mg BID PO 11/02/16 09:00 12/02/16 08:59 11/02/16 08:23 40 MG Morphine Sulfate (MoRPHine SULFATE INJ) 2 mg Q3H PRN IV 11/02/16 03:30 11/16/16 03:29 Review of Systems The patient denies fever, chills, vision loss, hearing loss, chest pain, palpitations, shortness of breath, abdominal pain, diarrhea, incontinence of urine, muscle pain, joint pain, rash, swollen glands, depression or anxiety A complete 10 point review of systems was obtained from this patient with pertinent positives and negatives described in the history of present illness and otherwise listed above. Physical Exam Vital Signs (Past 24 Hrs): Date Time Temp Pulse Resp B/P Pulse Ox O2 Delivery O2 Flow Rate FiO2 11/02/16 08:27 36.9 100 22 127/73 92 Room Air 11/02/16 04:30 36.7 95 18 115/77 94 Nasal Cannula 2.0 11/02/16 03:33 91 18 106/69 92 11/02/16 02:00 94 Nasal Cannula 2.0 11/02/16 01:58 97 21 106/80 88 Room Air 11/02/16 00:03 98 18 105/65 91 Room Air 11/01/16 22:49 94 18 126/77 92 Room Air 11/01/16 22:00 96 18 110/69 92 Room Air 11/01/16 20:58 96 11/01/16 20:56 94 Room Air 11/01/16 20:56 37.1 98 18 111/62 93 Room Air The patient is a well-developed middle-aged male lying comfortably in bed, at bedside. He is alert and oriented to person place and time. Attention and concentration mildly reduced. Recent and remote memory intact. He is able to name objects, repeat phrases, and read text without difficulty. Exhibits an age- appropriate fund of knowledge and normal vocabulary. Patient does appear somewhat abulic. Visual guillen full to confrontation. Visual acuity normal. Pupils equal round reactive to light and accommodation. Eye movements intact. No nystagmus. Facial sensation intact. There is no facial droop or facial weakness. Palate elevates to midline. Tongue protrudes to midline. Shoulder shrug and hearing intact. Sensation intact to light touch, temperature, vibration, and proprioception in all 4 limbs. Deep tendon reflexes are 2+ for the arms and legs bilaterally, plantar responses downgoing bilaterally. There is no dysmetria with finger to nose or heel to young bilaterally. Ophthalmoscopic examination reveals normal-appearing optic nerves and posterior elements. No papilledema or hemorrhages. Carotid pulses normal bilaterally, no bruits to auscultation. Musculoskeletal examination reveals normal strength and tone for all 4 limbs proximally and distally. No atrophy. No abnormal movements observed. Gait and station normal. Laboratory Results Past 24 Hours: 11/01/16 21:55 Red Blood Count 3.73, Mean Corpuscular Volume 92.8, Mean Corpuscular Hemoglobin 31.6, Mean Corpuscular Hemoglobin Concent 34.1, Mean Platelet Volume 8.9, Neutrophils (%) (Auto) 70.6, Lymphocytes (%) (Auto) 14.3, Monocytes (%) (Auto) 11.1, Eosinophils (%) (Auto) 0.4, Basophils (%) (Auto) 0.3, Neutrophils # (Auto ) 7.48, Lymphocytes # (Auto) 1.52, Monocytes # (Auto) 1.18, Eosinophils # (Auto ) 0.04, Basophils # (Auto) 0.03 11/01/16 21:55 Test 11/01/16 21:55 11/01/16 22:25 White Blood Count 10.60 K/uL (4.8-10.8) Red Blood Count 3.73 M/uL (4.7-6.1) Hemoglobin 11.8 g/dL (14.0-18.0) Hematocrit 34.6 % (42-52) Mean Corpuscular Volume 92.8 fL (80-100) Mean Corpuscular Hemoglobin 31.6 pg (25-34) Mean Corpuscular Hemoglobin Concent 34.1 g/dl (32-36) Platelet Count 173 K/uL (130-400) Mean Platelet Volume 8.9 fL (7.4-10.4) Neutrophils (%) (Auto) 70.6 % Lymphocytes (%) (Auto) 14.3 % Monocytes (%) (Auto) 11.1 % Eosinophils (%) (Auto) 0.4 % Basophils (%) (Auto) 0.3 % Neutrophils # (Auto) 7.48 K/uL (1.4-6.5) Lymphocytes # (Auto) 1.52 K/uL (1.2-3.4) Monocytes # (Auto) 1.18 K/uL (0.11-0.59) Eosinophils # (Auto) 0.04 K/uL (0-0.5) Basophils # (Auto) 0.03 K/uL (0-0.2) RDW Standard Deviation 48.2 fL (36.4-46.3) RDW Coefficient of Variation 14.2 % (11.5-14.5) Immature Granulocyte % (Auto) 3.3 % Immature Granulocyte # (Auto) 0.35 K/uL (0.00-0.02) Prothrombin Time 11.1 SECONDS (9.0-12.0) Prothromb Time International Ratio 1.0 (0.9-1.1) Activated Partial Thromboplast Time 29.0 SECONDS (21.0-31.0) Partial Thromboplastin Ratio 1.1 Anion Gap 9.0 mmol/L (3-11) Est Creatinine Clear Calc Drug Dose 65.6 ml/min Estimated GFR () 129.7 Estimated GFR (Non- 111.9 BUN/Creatinine Ratio 17.0 (10-20) Calcium Level 8.5 mg/dl (8.5-10.1) Phosphorus Level 2.6 mg/dl (2.5-4.9) Magnesium Level 1.8 mg/dl (1.8-2.4) Thyroid Stimulating Hormone (TSH) 2.010 uIu/ml (0.300-4.500) Urine Color YELLOW Urine Appearance CLEAR (CLEAR) Urine pH 7.0 (4.5-7.5) Urine Specific [place] 1.009 (1.000-1.030) Urine Protein NEG (NEG) Urine Glucose (UA) TRACE (NEG) Urine Ketones 1+ (NEG) Urine Occult Blood NEG (NEG) Urine Nitrite NEG (NEG) Urine Bilirubin NEG (NEG) Urine Urobilinogen NEG (NEG) Urine Leukocyte Esterase NEG (NEG) Impression 41-year-old male with a history of recently diagnosed glioblastoma multiforme status post resection who is currently receiving Temodar and recently started radiation treatments. History suggestive of associated seizures probably partial complex type with secondary generalization. Recent seizure episode likely related in part to recent initiation of radiation therapy with suspected development of post radiation edema/necrosis in the context of a suboptimal dose of Keppra. Tumor recurrence not excluded at this time. Plan Agree with increasing dosage of Keppra. 1000 mg twice daily should be adequate at this time. If this patient were to have further episodes would increase the dosage to 1500 mg twice daily. Would consider restarting Decadron to address tumor associated edema. She'll discuss further with this patient's oncologist. An EEG may be obtained as an outpatient. Patient may follow-up with me in the outpatient clinic. No further immediate recommendations.
[2016-11-02] MEDS ORDERED: KPP/1000 PO (12:22)
[2016-11-02] MEDS ORDERED: DXM/4 PO (12:22)
--- NOTE | 2016-11-02 12:47 | Discharge Summary ---
Discharge Summary Date of Service November 02, 2016. Discharge Summary Admission Date: November 02, 2016 at 03:06 Discharge Date: November 02, 2016 Discharge Disposition: Home Principal Diagnosis: seizure disorder Problems/Secondary Diagnoses: glioblastoma - s/p craniotomy diabetes hypertension sleep apnea Consultations: Dr. Jaramillo - Neurology Dr. Nielsen - Heme/Onc Medication Reconciliation New Medications: Dexamethasone (Decadron) 4 Mg Tab 4 MG PO BID, #60 TAB Changed Medications: Levetiracetam (Keppra) 1,000 Mg Tab 1 TAB PO BID for 30 Days, #60 TAB 5 Refills (Changed from: Levetiracetam (Keppra ) 250 Mg Tab 500 Mg PO BID) Continued Medications: Gnmvv-X-Tcvhhyovumdtd (Beano) 1 Tab Tab 1 TAB PO TID Amlodipine (Norvasc) 10 Mg Tab 10 MG PO DAILY, TAB Latanoprost (Xalatan 0.005% Oph Yulia) 0.005 % Yulia 1 DROPS OP HS, #7.5 ML 3 Refills Lisinopril (Prinivil) 10 Mg Tab 10 MG PO DAILY, TAB Metformin Hcl (Metformin Hcl Er) 500 Mg Tab 1000 MG PO BID for 90 Days, #360 TAB 1 Refill Omeprazole (Prilosec) 20 Mg Capcr 20 MG PO BID, CAP Ondansetron Hcl (Zofran) 8 Mg Tab 8 MG PO Q8 PRN for Nausea, TAB Polyethylene Glycol 3350 (Miralax) 1 Pow Pow 17 GM PO DAILY PRN for Constipation, #255 GM Sertraline (Zoloft) 50 Mg Tab 1 TAB PO DAILY for 30 Days, #30 TAB 2 Refills Temozolomide (Temodar) 5 Mg Cap 10 MG PO DAILY Temozolomide (Temodar) 20 Mg Cap 60 MG PO DAILY Temozolomide (Temodar) 100 Mg Inj 100 MG PO DAILY Discharge Exam Review of Systems: Constitutional: No chills, No fatigue, No fever, No problem reported, No sweats, No weakness, No weight loss Eyes: No diplopia, No discharge, No eye pain, No problem reported, No redness, No worsening of vision ENT: No dental problems, No hearing loss, No nasal symptoms, No problem reported, No sore throat, No tinnitus, No trouble swallowing, No unusual epistaxis Respiratory: No cough, No dyspnea at rest, No dyspnea on exertion, No hemoptysis, No problem reported, No shortness of breath, No sputum, No wheezing Cardiovascular: No PND, No chest pain, No claudication, No edema, No orthopnea, No palpitations, No problem reported Abdomen: No GI bleeding, No constipation, No diarrhea, No nausea, No pain, No problem reported, No vomiting Musculoskeletal: No calf pain, No joint pain, No muscle pain, No problem reported, No swelling Neurologic: No balance problems, No memory loss, No numbness/tingling, No paralysis, No problem reported, No vertigo, No weakness Psychiatric: No anhedonism, No anxiety, No depression symptoms, No insomnia , No problem reported, No substance abuse Endocrine: No excessive thirst, No excessive urination, No fatigue, No problem reported Hematologic / Lymphatic: No abnormal bleeding/bruising, No clotting problems , No night sweats, No problem reported, No swollen lymph nodes Physical Exam: General Appearance: no apparent distress Eyes: normal inspection ENT: hearing grossly normal, pharynx normal, + pertinent finding (scar from prior craniotomy) Neck: supple, no JVD Respiratory/Chest: chest non-tender Cardiovascular: regular rate, rhythm, no edema, no murmur Abdomen / GI: normal bowel sounds, non tender, soft Extremities: normal inspection Neurologic/Psychiatric: alert, normal mood/affect, oriented x 3 Skin: normal color, warm/dry, no rash Hospital Course 41 y/o Male with history of Diabetes mellitus type 2, HTN, SIMBA, Glioblastoma and seizure disorder. Presented to the ED following 2 seizure-like episodes where he lost consciousness for a few minutes. No incontinence or tongue biting was described, but there were two episodes of vomiting The pt had surgical resection of his tumor at [facility] in [place] 2 months prior. He was also on Dexamethasone for an extended period which he tapered off of slowly and discontinued one week prior. He had a headache at the time of admission and denies fevers. He had a CT scan in the ED that showed a hyperdense mass-like abnormality along the posterior aspect of the right frontal resection margin which appears to extend into the corpus callosum and across the midline. This is suboptimally assessed by CT but raises the possibility of residual/recurrent tumor. Postsurgical change or radiation necrosis could appear similar and was nondiagnostic. Patient then underwent an MRI which official read is pending. Patient was given 1000mg of Keppra IV and subsequently placed under the hospitalist service. For the seizure, the patients Keppra was increased to 1000mg BID from 500mg BID. He has had no further seizure activity. He was seen in consultation by Dr. Jaramillo neurology and Dr. Gia mendoza/onc. He will be discharged on a higher dose of Keppra and on dexamethasone 4mg BID. He is on an oral chemo agent which he will hold until he resumes radiation on Friday. He will follow up with his primary oncologist and will be followed locally by Dr. Plummer. If seizure activity would happen again he could increase Keppra to 1500mg BID per neurology recommendations. Official read of his MRI is pending, but he will need to have his MRI from a few weeks ago compared to this MRI. We do not currently have access to his old MRI as it was done in [place]. This will need outpatient follow up by his oncologist. He is anxious to get home and will be discharge in stable condition with close outpatient follow-up. History of resected blastoma recently started on chemoradiation represented last evening with new seizure activity. We will try to sort through and hopefully be able to compare scans done here as well as those that may be part of other the EHR. As I understand according to the a disc of MRI images of the MRI done postoperatively in [place] were uploaded into what I suspect is the [facility] EHR. Neurology has been consulted and anticonvulsants are ongoing. He has recently weaned off of Decadron and perhaps a resumption of Decadron at 4 mg twice a day would be a fair medicine to add at this juncture. Lets hold off on the Temodar today but if he is stable throughout the day then let us resume it is a daily medication tomorrow. Total Time Spent: Greater than 30 minutes This includes examination of the patient, discharge planning, medication reconciliation, and communication with other providers. Discharge Instructions Please refer to the electronic Patient Visit Report (Discharge Instructions) for additional information.
[2016-11-02 13:25] VITALS: BP 106/70; PULSE 102; TEMP 37.6; O2SAT 92
--- NOTE | 2016-11-02 13:25 | Discharge Instructions ---
Discharge Instructions Date of Service November 02, 2016. Admission Reason for Admission: Glioblastoma, Seizure Discharge Discharge Diagnosis / Problem: seizure disorder with prior craniotomy for Glioblastoma Discharge Goals Goal(s): Decrease discomfort, Improve function, Increase independence, Improve disease control Activity Recommendations Activity Limitations: resume your previous activity Lifting Limitations: gradually increase as tolerated Exercise/Sports Limitations: none Shower/Bathe: no limitations Driving or Machine Use: no driving . Instructions / Follow-Up Instructions / Follow-Up Follow up with Dr. Plummer next week follow up with PCP one week\\ follow up with Dr. Jaramillo neurology in a couple weeks no chemo pills until next radiation treatment Current Hospital Diet Patient's current hospital diet: Regular Diet Discharge Diet Recommended Diet: Regular Diet Pending Studies Studies pending at discharge: yes List of pending studies: MRI is still pending - will need MRI from last night compared to outpatient MRI from [facility] done a few weeks ago by oncologist/neurologist when available Laboratory Results Last Resulted CBC 11/01/16 21:55 Red Blood Count 3.73, Mean Corpuscular Volume 92.8, Mean Corpuscular Hemoglobin 31.6, Mean Corpuscular Hemoglobin Concent 34.1, Mean Platelet Volume 8.9, Neutrophils (%) (Auto) 70.6, Lymphocytes (%) (Auto) 14.3, Monocytes (%) (Auto) 11.1, Eosinophils (%) (Auto) 0.4, Basophils (%) (Auto) 0.3, Neutrophils # (Auto ) 7.48, Lymphocytes # (Auto) 1.52, Monocytes # (Auto) 1.18, Eosinophils # (Auto ) 0.04, Basophils # (Auto) 0.03 Last Resulted BMP 11/01/16 21:55 Medical Emergencies . Who to Call and When: Medical Emergencies: If at any time you feel your situation is an emergency, please call 911 immediately. . Non-Emergent Contact Non-Emergency issues call your: Primary Care Provider Call Non-Emergent contact if: temperature is above 101.5, you have any medication questions further seizure activity or worsening headache . . "Provider Documentation" section prepared by Eugene Aleman. . VTE Core Measure Inpt VTE Proph given/why not?: Unfractionated heparin SQ, SCD's
--- NOTE | 2016-11-02 13:27 | Hospitalist Progress Note ---
Hospitalist Progress Note Date of Service November 02, 2016. Objective Vital Signs Date Time Temp Pulse Resp B/P Pulse Ox O2 Delivery O2 Flow Rate FiO2 11/02/16 04:30 36.7 95 18 115/77 94 Nasal Cannula 2.0 11/02/16 03:33 91 18 106/69 92 11/02/16 02:00 94 Nasal Cannula 2.0 11/02/16 01:58 97 21 106/80 88 Room Air 11/02/16 00:03 98 18 105/65 91 Room Air 11/01/16 22:49 94 18 126/77 92 Room Air 11/01/16 22:00 96 18 110/69 92 Room Air 11/01/16 20:58 96 11/01/16 20:56 94 Room Air 11/01/16 20:56 37.1 98 18 111/62 93 Room Air Laboratory Results Last 24 Hours Test 11/01/16 21:55 11/01/16 22:25 White Blood Count 10.60 K/uL Red Blood Count 3.73 M/uL Hemoglobin 11.8 g/dL Hematocrit 34.6 % Mean Corpuscular Volume 92.8 fL Mean Corpuscular Hemoglobin 31.6 pg Mean Corpuscular Hemoglobin Concent 34.1 g/dl Platelet Count 173 K/uL Mean Platelet Volume 8.9 fL Neutrophils (%) (Auto) 70.6 % Lymphocytes (%) (Auto) 14.3 % Monocytes (%) (Auto) 11.1 % Eosinophils (%) (Auto) 0.4 % Basophils (%) (Auto) 0.3 % Neutrophils # (Auto) 7.48 K/uL Lymphocytes # (Auto) 1.52 K/uL Monocytes # (Auto) 1.18 K/uL Eosinophils # (Auto) 0.04 K/uL Basophils # (Auto) 0.03 K/uL RDW Standard Deviation 48.2 fL RDW Coefficient of Variation 14.2 % Immature Granulocyte % (Auto) 3.3 % Immature Granulocyte # (Auto) 0.35 K/uL Prothrombin Time 11.1 SECONDS Prothromb Time International Ratio 1.0 Activated Partial Thromboplast Time 29.0 SECONDS Partial Thromboplastin Ratio 1.1 Sodium Level 134 mmol/L Potassium Level 4.0 mmol/L Chloride Level 99 mmol/L Carbon Dioxide Level 26 mmol/L Anion Gap 9.0 mmol/L Blood Urea Nitrogen 13 mg/dl Creatinine 0.77 mg/dl Est Creatinine Clear Calc Drug Dose 65.6 ml/min Estimated GFR () 129.7 Estimated GFR (Non- 111.9 BUN/Creatinine Ratio 17.0 Random Glucose 216 mg/dl Calcium Level 8.5 mg/dl Phosphorus Level 2.6 mg/dl Magnesium Level 1.8 mg/dl Thyroid Stimulating Hormone (TSH) 2.010 uIu/ml Urine Color YELLOW Urine Appearance CLEAR Urine pH 7.0 Urine Specific [place] 1.009 Urine Protein NEG Urine Glucose (UA) TRACE Urine Ketones 1+ Urine Occult Blood NEG Urine Nitrite NEG Urine Bilirubin NEG Urine Urobilinogen NEG Urine Leukocyte Esterase NEG Assessment and Plan 41 y/o M Hx DM, HTN, SIMBA, Glioblastoma and seizure disorder. Presents following 2 seizure-like episodes where he lost consciousness for a few minutes. No incontinence or tongue biting was described. The pt had surgical resection of his tumor at [facility] in [place] 2 months prior. He was also on Dexamethasone for an extended period which he tapered off of slowly and discontinued one week prior. He has a SHORT at the time of admission and denies fevers. Imaging obtained in the ER is nondiagnostic as it is read a possible extension of the tumor vs necrosis as an effect of radiation. 1) Seizure - neurology was contacted and will see the pt in the AM - advised on an increased dose of Keppra which was started in the ER. He will be monitored on telemetry overnight. Differential may include effect of chemotherapy or radiation, discontinuation of Dexamethasone or extension of the Tumor. 2) Glioblastoma - chemo is taken in pill form and is held pending AM neurology eval. We can consult his oncologist or contact Anup if his seizures recur. 3) DM - will cont Metformin 4) HTN - Cont Lisinopril, Amlodipine 5) SIMBA - prefers to sleep w/NC this clifton although he is normally compliant with CPAP. 6. Patient ended up being discharged. Please see discharge summary.
--- NOTE | 2016-11-02 14:36 | DIAGNOSTIC IMAGING REPORT ---
MRI OF THE BRAIN COMBO CLINICAL HISTORY: Seizure. History of glioblastoma status post resection. COMPARISON STUDY: CT of the brain dated 11/01/2016. MRI of the brain from outside institution dated 09/23/2016. TECHNIQUE: MRI of the brain was performed utilizing various T1 and T2-weighted sequences in the axial, sagittal, and coronal planes. Contrast-enhanced sequences were acquired following the administration of 10 cc of Gadavist. The examination is performed using the seizure protocol. FINDINGS: Brain parenchyma: There is right frontal encephalomalacia deep to the craniotomy site at the site of previous tumor resection. There is T1 hyperintense material lining the craniotomy site with right anterior dural thickening. This is similar to before 171 examination and may represent postoperative change. There is infiltrative enhancing soft tissue identified more superiorly in the right frontal lobe, best seen on axial image #18 of the postcontrast images. This has increased from previous and the enhancing component measures approximately 3.5 x 3 x 2.5 cm (previously difficult to measure) and this is typical for progression of disease. This region demonstrates minimally restricted diffusion, likely related to tumor. There is significant surrounding edema, with mild right to left midline shift in the frontal region. FLAIR signal abnormality around this lesion extends posteriorly the basal ganglia, as well as in the right temporal lobe. Abnormal signal crosses the corpus callosum the midline and involves the left frontal lobe. Although there is no abnormal enhancement is region, this is highly concerning for tumor involvement. There are likely trace residual blood products in the right frontal region. There is no restricted diffusion to typical for acute ischemia. The cerebellar tonsils are normal in configuration. The mixed intensity extra-axial collection along the right frontal convexity has decreased from previous and is likely related to postoperative change. There is pachymeningeal enhancement identified along the midline falx and along the right convexity, likely related to postoperative change. No leptomeningeal enhancement is identified. Ventricles, sulci, and cisterns: There is effacement of the frontal horn of the right lateral ventricle as well as the right frontal cortical sulci. The ventricles and cisterns are normal in configuration. Pituitary and sella: Partially empty sella is incidentally noted. Intracranial vasculature: Normal flow voids are maintained at the skull base. Orbits: The bony orbits are grossly intact. Orbital contents are normal in appearance. Sinuses and mastoids: Clear. Calvarium: There are postoperative changes from bifrontal and right parietal craniotomy. Cervical cord: Partially visualized cervical spinal cord is normal in morphology and signal intensity. Soft tissues: There is a small fluid collection identified in the right parietal scalp measuring approximately 5 x 1.5 cm. This is likely on a postoperative basis. IMPRESSION: 1. Difficult examination to interpret secondary to posttreatment change and previous frontal craniotomy with tumor resection. 2. A postoperative fluid collection along the right frontal convexity has modestly decreased in size from earlier studies. 3. There is increasing abnormal enhancing soft tissue identified along the posterior/superior margin of the resection as compared to 09/23/2016. This is highly concerning for recurrent/residual tumor and there is mild associated mass effect. 4. More extensive FLAIR signal abnormality is identified, which extends posteriorly into the basal ganglia, across the corpus callosum into the left frontal lobe, and into the right temporal lobe. Although this could potentially represent post radiation change and although there is no associated abnormal enhancement, this remains highly concerning for spread of tumor. 5. There is diffuse nonspecific pachymeningeal enhancement, greatest along the right convexity and the midline falx. This is likely related previous surgery. Similar findings were also seen on 09/23/2016. Electronically signed by: Junaid Allen M.D. 11/02/2016 2:35 PM Dictated Date/Time: 11/02/2016 12:37 PM
[2016-11-02] MEDS ORDERED: LATANOPROST 0.005% OP SOLN 2.5 ML BTL OP SCH (21:00)
[2017-01-09] MEDS ORDERED: TEMO100I PO (15:25)
[2017-01-09] MEDS ORDERED: TEMO1CAP4 PO (15:25)
[2017-05-08] MEDS ORDERED: METF1TAB85 PO (09:04)
[2017-05-08] MEDS ORDERED: ONDA8TAB6 PO (09:04)
[2017-05-08] MEDS ORDERED: LATA0.5S OPB (09:12)
[2017-05-08] MEDS ORDERED: MECL1TAB42 PO (09:48)
[2017-05-08] MEDS ORDERED: PANT40TA PO (10:25)
[2017-05-08] MEDS ORDERED: AMLO-114 PO (10:38)
[2017-05-08] MEDS ORDERED: LISI10TA PO (10:38)
[2017-05-08] MEDS ORDERED: SERT-234 PO (11:23)
[2017-05-08] MEDS ORDERED: POLY335019 PO (18:14)
== END 2016-11-02 14:34 | disposition home or self-care (01) | DRG 101 ==
LOC: ENRESERVTM → ENRESERVDT → EDBD 20:49 → C.EDB 20:50 → C.2T 11-02 03:06
PROVIDERS: ADMIT Internal Medicine; ATTEND Internal Medicine
DX: G40.909 Epilepsy, unspecified, not intractable, without status epilepticus (principal); C71.1 Malignant neoplasm of frontal lobe; I10 Essential (primary) hypertension; E11.9 Type 2 diabetes mellitus without complications; G47.33 Obstructive sleep apnea (adult) (pediatric); Z87.891 Personal history of nicotine dependence

== ENCOUNTER 2016-12-03 11:22 | Emergency (ER) | payer BC ==
[~2016-12-03] VITALS: Ht 175.3 cm; Wt 101.6 kg
[~2016-12-03 11:22] MED LIST changes: -ALPR-411 PO; +DXM/4 PO; -HMLI7525 SC; -HYDR-3983 PO; +KPP/1000 PO; -LEVE250T PO
[2016-12-03 11:24] VITALS: TEMP 36.7; Ht 175.3 cm; Wt 101.6 kg
[2016-12-03] MEDS ORDERED: SODIUM CHLORIDE 0.9% 1000ML 1,000 ML IV STA (11:41)
[2016-12-03] MEDS ORDERED: OPTIRAY 320 IV PRN (11:45)
[2016-12-03 12:18] LABS: BASO % 0.2 %; BASO ABS # 0.02 K/uL (0-0.2); COMPLETE YES; EOS % 0.1 %; HEMATOCRIT 43.3 % (42-52); IG% 2.9 %; LYMPH % 10.7 %; LYMPH ABS # 1.27 K/uL (1.2-3.4); MEAN CELL VOLUME 93.7 fL (80-100); MEAN CORPUSCULAR HEMOGLOBIN 32.3 pg (25-34); MEAN CORPUSCULAR HGB CONC 34.4 g/dl (32-36); MONO % 9.4 %; NEUT % 76.7 %; PLATELET COUNT 230 K/uL (130-400); RED BLOOD COUNT 4.62 M/uL (4.7-6.1); WHITE BLOOD COUNT 11.85 K/uL (4.8-10.8)
--- NOTE | 2016-12-03 12:29 | EMERGENCY ROOM VISIT NOTE ---
History First contact with patient: 11:28 Chief Complaint: ABDOMINAL PAIN Stated Complaint: CHRONIC ABD. PAIN, POSSIBLE APPENDIX Nursing Triage Summary: Pt has been dealing with chronic abdominal pain for the past month. Pt is currently on chemotherapy. Pt has been working with [facility] and was told to come to the ED for a appendicitis rule out. Pt denies nausea or vomiting. Pt stated that he has decreased appetite for the past couple days and loose stool. History of Present Illness The patient is a 41 year old male who presents to the Emergency Room with complaints of abdominal pain for the past 2 weeks. The patient states that he has had pain across his lower abdomen for the past 2 weeks. He is not able to describe the pain except to say that it is constant. He rates it a 5/10. There is nothing that makes the pain worse. He has a slightly decreased appetite, but denies any nausea/vomiting, changes in bowel movements or urinary symptoms. He has no history of abdominal surgery. The patient has a history of a glioblastoma and had a resection in August and subsequent washout due to infection later that month. He is currently receiving chemotherapy and radiation. He states that he consulted his neuro-oncologist at [facility] and they told him to come here because he may have appendicitis. The patient denies any fevers/chills. Review of Systems A complete 10 point review of systems was reviewed with the patient with pertinent positives and negatives as per history of present illness. All else were negative. Past Medical/Surgical History Medical Problems: (1) Glioblastoma Family History No pertinent family history Social History Smoking Status: Never Smoker Marital Status: Housing Status: lives with family Current/Historical Medications Scheduled Nktdb-U-Akbzmcwwhqfuo (Beano), 1 TAB PO TID Amlodipine (Norvasc), 10 MG PO DAILY Dexamethasone (Dexamethasone), 2 MG PO BID Latanoprost (Xalatan 0.005% Oph Yulia), 1 DROPS OP HS Levetiracetam (Keppra), 1 TAB PO BID Lisinopril (Prinivil), 10 MG PO DAILY Meclizine Hcl (Meclizine Hcl), 1 TAB PO DAILY Metformin Hcl (Metformin Hcl Er), 1,000 MG PO BID Omeprazole (Prilosec), 20 MG PO BID Sertraline (Zoloft), 1 TAB PO DAILY Temozolomide (Temodar), 10 MG PO DAILY Temozolomide (Temodar), 60 MG PO DAILY Temozolomide (Temodar), 100 MG PO DAILY Scheduled PRN Ondansetron Hcl (Zofran), 8 MG PO Q8 PRN for Nausea Polyethylene Glycol 3350 (Miralax), 17 GM PO DAILY PRN for Constipation Allergies Coded Allergies: No Known Allergies (Unverified , 12/03/16) Physical Exam Vital Signs Date Time Temp Pulse Resp B/P (MAP) Pulse Ox O2 Delivery O2 Flow Rate FiO2 12/03/16 13:57 95 18 135/78 99 12/03/16 13:09 68 20 126/79 98 Room Air 12/03/16 11:24 36.7 72 16 105/72 98 Room Air Physical Exam VITALS: Vitals are noted on the nurse's note and reviewed by myself. Vital signs stable. GENERAL: This is a 41-year-old male, resting comfortably in bed, in no acute distress, well-developed well-nourished. SKIN: There is a surgical scar which extends from ear to ear. EARS: External auditory canals clear, tympanic membranes pearly santiago without erythema or effusion bilaterally. EYES: Pupils equal round and reactive to light and accommodation. MOUTH: Mucous membranes moist. HEART: Regular rate and rhythm without murmurs gallops or rubs. LUNGS: Clear to auscultation bilaterally without wheezes, rales or rhonchi. ABDOMEN: Positive bowel sounds x 4. Soft, tenderness to palpation across the lower abdomen. No guarding or rebound tenderness. NEURO: Patient was alert and oriented to person place and time. Medical Decision & Procedures ER Provider Diagnostic Interpretation: CT OF THE ABDOMEN AND PELVIS WITH CONTRAST FINDINGS: Lung bases are clear. The liver, spleen, adrenal glands and pancreas are unremarkable. A 7 mm hypodense lesion arising from the lower pole of the left kidney is too small to characterize but likely reflects a cyst. There is no hydronephrosis. There is no biliary or pancreatic ductal dilatation. There is no evidence for a bowel obstruction. The appendix is normal. There is a small fat-containing umbilical hernia. There is no lymphadenopathy. Skeletal structures are unremarkable. IMPRESSION: No acute process within the abdomen or pelvis. Normal appendix. Laboratory Results 12/03/16 12:00 Red Blood Count 4.62, Mean Corpuscular Volume 93.7, Mean Corpuscular Hemoglobin 32.3, Mean Corpuscular Hemoglobin Concent 34.4, Mean Platelet Volume 9.0, Neutrophils (%) (Auto) 76.7, Lymphocytes (%) (Auto) 10.7, Monocytes (%) (Auto) 9.4, Eosinophils (%) (Auto) 0.1, Basophils (%) (Auto) 0.2, Neutrophils # (Auto) 9.10, Lymphocytes # (Auto) 1.27, Monocytes # (Auto) 1.11, Eosinophils # (Auto) 0.01, Basophils # (Auto) 0.02 12/03/16 12:00 Test 12/03/16 12:00 12/03/16 12:15 White Blood Count 11.85 K/uL (4.8-10.8) Red Blood Count 4.62 M/uL (4.7-6.1) Hemoglobin 14.9 g/dL (14.0-18.0) Hematocrit 43.3 % (42-52) Mean Corpuscular Volume 93.7 fL (80-100) Mean Corpuscular Hemoglobin 32.3 pg (25-34) Mean Corpuscular Hemoglobin Concent 34.4 g/dl (32-36) Platelet Count 230 K/uL (130-400) Mean Platelet Volume 9.0 fL (7.4-10.4) Neutrophils (%) (Auto) 76.7 % Lymphocytes (%) (Auto) 10.7 % Monocytes (%) (Auto) 9.4 % Eosinophils (%) (Auto) 0.1 % Basophils (%) (Auto) 0.2 % Neutrophils # (Auto) 9.10 K/uL (1.4-6.5) Lymphocytes # (Auto) 1.27 K/uL (1.2-3.4) Monocytes # (Auto) 1.11 K/uL (0.11-0.59) Eosinophils # (Auto) 0.01 K/uL (0-0.5) Basophils # (Auto) 0.02 K/uL (0-0.2) RDW Standard Deviation 53.6 fL (36.4-46.3) RDW Coefficient of Variation 15.7 % (11.5-14.5) Immature Granulocyte % (Auto) 2.9 % Immature Granulocyte # (Auto) 0.34 K/uL (0.00-0.02) Anion Gap 10.0 mmol/L (3-11) Est Creatinine Clear Calc Drug Dose 150.8 ml/min Estimated GFR () 131.1 Estimated GFR (Non- 113.1 BUN/Creatinine Ratio 24.7 (10-20) Calcium Level 9.4 mg/dl (8.5-10.1) Total Bilirubin 0.5 mg/dl (0.2-1) Aspartate Amino Transf (AST/SGOT) 8 U/L (15-37) Alanine Aminotransferase (ALT/SGPT) 56 U/L (12-78) Alkaline Phosphatase 57 U/L (45-117) Total Protein 7.0 gm/dl (6.4-8.2) Albumin 3.7 gm/dl (3.4-5.0) Globulin 3.3 gm/dl (2.5-4.0) Albumin/Globulin Ratio 1.1 (0.9-2) Lipase 103 U/L (73-393) Urine Color YELLOW Urine Appearance CLEAR (CLEAR) Urine pH 7.0 (4.5-7.5) Urine Specific [place] 1.013 (1.000-1.030) Urine Protein NEG (NEG) Urine Glucose (UA) NEG (NEG) Urine Ketones NEG (NEG) Urine Occult Blood NEG (NEG) Urine Nitrite NEG (NEG) Urine Bilirubin NEG (NEG) Urine Urobilinogen NEG (NEG) Urine Leukocyte Esterase NEG (NEG) Medications Administered Medications (Trade) Dose Ordered Sig/Marianne Route Start Time Stop Time Status Last Admin Dose Admin Sodium Chloride 1,000 ml @ 999 mls/hr Q1H1M STAT IV 12/03/16 11:41 12/03/16 12:41 DC 12/03/16 12:10 999 MLS/HR ED Course The patient was evaluated as above. Labs were drawn and IV access was obtained. Patient was medicated with 1 L normal saline solution. CT of the abdomen and pelvis was performed and read by radiology as above. Patient was reevaluated and findings were discussed. The patient will be discharged home. Discharge instructions were reviewed with the patient. The patient verbalized understanding of my assessment and treatment plan and was discharged home in good condition. Medical Decision Differential diagnosis includes appendicitis, diverticulitis, urinary tract infection, colitis, among others. The patient is a 41-year-old male who presents today complaining of lower abdominal pain 2 weeks. Labs revealed a mild leukocytosis, likely secondary to dexamethasone use, with no anemia or concerning electrolyte abnormalities. Kidney and liver functions are within normal limits.. Urinalysis was not suggestive of infection. Patient is afebrile and vital signs stable. CT of the abdomen and pelvis showed no acute findings. The patient was informed of all findings. I am unsure the cause of his abdominal pain but I do feel he can be evaluated as an outpatient. He was instructed to follow-up with his primary care provider within 48 hours for further evaluation. Based on the patient's presentation and work up, I feel the patient is stable for outpatient treatment. The patient was educated to return to the emergency department for any worsening of their current condition or new/concerning symptoms. He will follow up with his PCP. Medication reconciliation: I attest that I have personally reviewed the patient 's current medication list. Blood pressure screening: Patient was found to have normal blood pressure on screening and does not require follow-up. Impression Primary Impression: Lower abdominal pain Departure Information Dispostion Home / Self-Care Condition GOOD Referrals Kris Soler M.D. (PCP) Patient Instructions My [facility] Additional Instructions You have been treated in the Emergency Department your Abdominal Pain. Laboratory results and imaging studies have ruled out any emergent causes for your abdominal pain which would warrant admission or surgery. Take the Protonix as prescribed. For pain control, you can use the following vcaw-zae-lvvwmiw medicines (if >12 yo): - Regular strength (325mg/tab) Tylenol (acetaminophen) 2 tabs every 4-6 hours as needed. Do not exceed 12 tablets in a 24 hour period. Avoid taking more than 4 grams (4000 mg) of Tylenol per day. This includes any other sources of acetaminophen you may take on a regular basis. - Regular strength (200 mg/tab) Advil (ibuprofen) 1-2 tabs every 4-6 hours as needed. Do not exceed a dose of 3200 mg per day. Drink plenty of water and stay well hydrated. Follow-up with your primary care provider within 48 hours. Return to the emergency department if your symptoms persist despite treatment plan outlined above or if the following symptoms occur: Worsening pain, fevers, vomiting, or any other new/concerning symptoms.
[2016-12-03 12:36] LABS: URINE APPEARANCE CLEAR (CLEAR); URINE BILIRUBIN NEG (NEG); URINE COLOR YELLOW; URINE NITRITE NEG (NEG); URINE SPECIFIC GRAVITY 1.013 (1.000-1.030); UROBILINOGEN NEG (NEG); ZZUR CULT IF INDIC CLEAN CATCH NO
[2016-12-03] MEDS ORDERED: DEXA2TAB PO (12:38)
[2016-12-03 12:39] LABS: CALCIUM 9.4 mg/dl (8.5-10.1)
[2016-12-03 12:42] LABS: BUN/CREATININE RATIO 24.7 (10-20); CREATININE 0.75 mg/dl (0.60-1.40); POTASSIUM 4.2 mmol/L (3.5-5.1)
[2016-12-03 12:42] LABS: MANUAL MICROSCOPIC REQUIRED? NO; REVIEW REQ? NO
[2016-12-03 12:44] LABS: ALB/GLOB RATIO 1.1 (0.9-2)
--- NOTE | 2016-12-03 13:30 | DIAGNOSTIC IMAGING REPORT ---
CT OF THE ABDOMEN AND PELVIS WITH CONTRAST CLINICAL HISTORY: Lower abdominal pain. COMPARISON STUDY: None. TECHNIQUE: Following IV administration of 120 mL of Optiray-320, axial images of the abdomen and pelvis were obtained from the lung bases to the proximal femurs. Images were reviewed in the axial, sagittal, and coronal planes. IV contrast was administered without complication. CT DOSE: 757.51 mGy.cm FINDINGS: Lung bases are clear. The liver, spleen, adrenal glands and pancreas are unremarkable. A 7 mm hypodense lesion arising from the lower pole of the left kidney is too small to characterize but likely reflects a cyst. There is no hydronephrosis. There is no biliary or pancreatic ductal dilatation. There is no evidence for a bowel obstruction. The appendix is normal. There is a small fat-containing umbilical hernia. There is no lymphadenopathy. Skeletal structures are unremarkable. IMPRESSION: No acute process within the abdomen or pelvis. Normal appendix. Electronically signed by: Roe Daniel M.D. 12/03/2016 1:29 PM Dictated Date/Time: 12/03/2016 1:23 PM
[2016-12-03 13:57] VITALS: BP 135/78; PULSE 95; O2SAT 99
[2017-01-09] MEDS ORDERED: TEMO100I PO (15:25)
[2017-01-09] MEDS ORDERED: TEMO1CAP4 PO (15:25)
[2017-05-08] MEDS ORDERED: ONDA8TAB6 PO (09:04)
[2017-05-08] MEDS ORDERED: METF1TAB85 PO (09:04)
[2017-05-08] MEDS ORDERED: LATA0.5S OPB (09:12)
[2017-05-08] MEDS ORDERED: MECL1TAB42 PO (09:48)
[2017-05-08] MEDS ORDERED: PANT40TA PO (10:25)
[2017-05-08] MEDS ORDERED: AMLO-114 PO (10:38)
[2017-05-08] MEDS ORDERED: LISI10TA PO (10:38)
[2017-05-08] MEDS ORDERED: SERT-234 PO (11:23)
[2017-05-08] MEDS ORDERED: POLY335019 PO (18:14)
== END 2016-12-03 13:58 | disposition home or self-care (01) ==
LOC: C.EDB 11:23 → C.EDC 13:58
DX: R10.30 Lower abdominal pain, unspecified (principal); Z79.84 Long term (current) use of oral hypoglycemic drugs; Z79.899 Other long term (current) drug therapy

== ENCOUNTER 2017-01-04 10:42 | Emergency (ER) | payer BC ==
[~2017-01-04] VITALS: Ht 175.3 cm; Wt 111.0 kg
[~2017-01-04 10:42] MED LIST changes: +AMLO-114 PO; +DEXA2TAB PO; -DXM/4 PO; +LATA0.5S OP; +LISI10TA PO; +MECL1TAB42 PO; +METF1TAB85 PO; +ONDA8TAB6 PO; +PANT40TA PO; +POLY335019 PO; -PRLSR20 PO
[2017-01-04 10:43] VITALS: Ht 175.3 cm; Wt 111.0 kg
[2017-01-04] MEDS ORDERED: SERT-234 PO (11:23)
--- NOTE | 2017-01-04 12:00 | EMERGENCY ROOM VISIT NOTE ---
History Report prepared by Yuryibkarine: Mary Lovelace Under the Supervision of: Dr. Amy Russo D.O. First contact with patient: 11:46 Chief Complaint: OTHER COMPLAINT Stated Complaint: SWELLING AT INCISION FROM BRAIN RESECTION History of Present Illness The patient is a 41 year old male who presents to the Emergency Room with complaints of persistent swelling at a post surgical incision site. He recently underwent both a brain resection surgery and a clean out surgery for a history of grade 4 glioblastoma. The most recent surgery was in September 2016 and both procedures were performed at [facility] in [place]. He states this morning, he and his noticed a small "bump" and swelling at the incision site. The area is tender to the touch. His denies any drainage. The patients last chemotherapy treatment was last month at [facility]. His reports he developed seizures with the glioblastoma and his last seizure was approximately 6 weeks ago. He denies any fevers, chills, neck pain, back pain, abdominal pain, nausea or vomiting. Source of History: patient, spouse/significant other () Onset: this morning Position: head Quality: other (swelling) Timing: other (persistent) Associated Symptoms: No fevers, No chills, No neck pain, No nausea, No vomiting, No abdominal pain, No back pain Review of Systems See HPI for pertinent positives & negatives. A total of 10 systems reviewed and were otherwise negative. Past Medical & Surgical Medical Problems: (1) Diabetes mellitus (2) Glioblastoma (3) Sleep apnea Family History No pertinent family history Social History Smoking Status: Never Smoker Alcohol Use: none Drug Use: none Marital Status: Housing Status: lives with family Occupation Status: unemployed Current/Historical Medications Scheduled Amlodipine (Norvasc), 10 MG PO DAILY Dexamethasone (Dexamethasone), 2 MG PO DAILY Latanoprost (Xalatan 0.005% Oph Yulia), 1 DROPS OP HS Levetiracetam (Keppra), 1 TAB PO BID Lisinopril (Prinivil), 10 MG PO DAILY Metformin Hcl (Metformin Hcl Er), 1,000 MG PO BID Pantoprazole (Protonix), 40 MG PO DAILY Sertraline (Zoloft), 100 MG PO DAILY Scheduled PRN Meclizine Hcl (Meclizine Hcl), 1 TAB PO DAILY PRN for DIZZINESS Ondansetron Hcl (Zofran), 8 MG PO Q8 PRN for Nausea Polyethylene Glycol 3350 (Miralax), 17 GM PO DAILY PRN for Constipation Allergies Coded Allergies: No Known Allergies (Unverified , 12/03/16) Physical Exam Vital Signs Date Time Temp Pulse Resp B/P (MAP) Pulse Ox O2 Delivery O2 Flow Rate FiO2 01/04/17 15:19 36.9 78 18 113/77 95 01/04/17 14:00 75 18 103/69 95 Room Air 01/04/17 10:43 36.9 76 18 103/70 96 Room Air Physical Exam HEENT: Head - normocephalic and atraumatic. Scalp incision appears to be well- healed. There is a golf ball sized fluid collection anterior to the incision on top of his head. It is fluctuant. It is not hot or warm. Pupils are equal, round, and reactive to light. Extraocular eye muscles are intact, and sclera are anicteric. Nose - moist nasal mucosa without discharge. Mouth - moist buccal mucosa. Oropharynx is nonerythematous and there is no tonsillar exudate or edema noted. Neck: Supple; no JVD, nuchal rigidity, cervical lymphadenopathy. Heart: Regular rate and rhythm. There is a normal S1 and S2 with no murmurs, clicks, or gallops appreciated. Lungs: Clear to auscultation bilaterally with no wheezes, rales, or rhonchi. Abdomen: Soft, completely nontender, nondistended, with good bowel sounds. There are no palpable pulsatile masses or hepatosplenomegaly. There is no guarding, rigidity, or rebound noted. Extremities: No evidence of cyanosis, clubbing, or edema. There are easily palpable peripheral pulses. Skin: warm and dry with good turgor and no rashes. Medical Decision & Procedures ER Provider Diagnostic Interpretation: Radiology results as stated below per my review and the radiologist's interpretation: CT OF THE HEAD WITHOUT CONTRAST CLINICAL HISTORY: Evaluate fluid collection on top of head near incision. COMPARISON STUDY: Head CT and MRI of the brain November 01, 2016. CT DOSE: 537.48 mGy.cm TECHNIQUE: Helical axial images of the head were obtained without IV contrast. Automated exposure control was utilized for the study. A dose lowering technique was utilized adhering to the principles of ALARA. FINDINGS: A bifrontal craniotomy is again noted. Note is made of a 2.3 x 0.7 cm elliptical hyperdensity within the left superior aspect of the scalp adjacent to the incision. This appears new since exam of November 01, 2016. This is partially imaged on this exam. Postoperative findings from a right frontal resection are noted. Overlying extra axial hyperdensity is unchanged. This may be post surgical. Subtle hyperdensity within the anterior right frontal lobe extending into the corpus callosum measures approximately 4.2 x 3.3 cm. This is suboptimally assessed by CT. Mass effect appears diminished since head CT and MRI of November 01, 2016. This suggest improving edema. IMPRESSION: 1. Status post bifrontal craniotomy. Small elliptical hyperdense scalp fluid collection overlying the left aspect of the craniotomy measures approximately 2.3 x 0.7 cm. This is partially imaged on this exam but appears new since head CT of November 01, 2016. This fluid collection is nonspecific and could reflect a seroma, small hematoma, pseudomeningocele or abscess. 2. Status post right frontal lobe resection. Suboptimal evaluation for residual/recurrent tumor on this unenhanced CT. 12.2 x 3.3 cm hypodensity along the resection margin could reflect postoperative change, radiation necrosis or tumor. However, associated mass effect has improved since exam of November 01, 2016 suggesting an interval improvement. Electronically signed by: Roe Daniel M.D. 01/04/2017 1:08 PM Laboratory Results 01/04/17 12:15 Red Blood Count 4.23, Mean Corpuscular Volume 94.6, Mean Corpuscular Hemoglobin 30.5, Mean Corpuscular Hemoglobin Concent 32.3, Mean Platelet Volume 8.8, Neutrophils (%) (Auto) 78.2, Lymphocytes (%) (Auto) 9.9, Monocytes (%) (Auto) 9.6, Eosinophils (%) (Auto) 0.4, Basophils (%) (Auto) 0.2, Neutrophils # (Auto) 7.62, Lymphocytes # (Auto) 0.97, Monocytes # (Auto) 0.94, Eosinophils # (Auto) 0.04, Basophils # (Auto) 0.02 01/04/17 12:15 Test 01/04/17 12:15 White Blood Count 9.76 K/uL (4.8-10.8) Red Blood Count 4.23 M/uL (4.7-6.1) Hemoglobin 12.9 g/dL (14.0-18.0) Hematocrit 40.0 % (42-52) Mean Corpuscular Volume 94.6 fL (80-100) Mean Corpuscular Hemoglobin 30.5 pg (25-34) Mean Corpuscular Hemoglobin Concent 32.3 g/dl (32-36) Platelet Count 203 K/uL (130-400) Mean Platelet Volume 8.8 fL (7.4-10.4) Neutrophils (%) (Auto) 78.2 % Lymphocytes (%) (Auto) 9.9 % Monocytes (%) (Auto) 9.6 % Eosinophils (%) (Auto) 0.4 % Basophils (%) (Auto) 0.2 % Neutrophils # (Auto) 7.62 K/uL (1.4-6.5) Lymphocytes # (Auto) 0.97 K/uL (1.2-3.4) Monocytes # (Auto) 0.94 K/uL (0.11-0.59) Eosinophils # (Auto) 0.04 K/uL (0-0.5) Basophils # (Auto) 0.02 K/uL (0-0.2) RDW Standard Deviation 49.7 fL (36.4-46.3) RDW Coefficient of Variation 14.4 % (11.5-14.5) Immature Granulocyte % (Auto) 1.7 % Immature Granulocyte # (Auto) 0.17 K/uL (0.00-0.02) Anion Gap 8.0 mmol/L (3-11) Est Creatinine Clear Calc Drug Dose 200.3 ml/min Estimated GFR () 144.7 Estimated GFR (Non- 124.9 BUN/Creatinine Ratio 26.1 (10-20) Calcium Level 9.0 mg/dl (8.5-10.1) Laboratory results per my review. ED Course 1148: Past medical records reviewed. The patient was evaluated in room C10. A complete history and physical exam was performed. An IV lock was initiated and labs are drawn as The patient for CT scan of the brain 1349: I reevaluated the patient. He is resting comfortably. I discussed the results of his CT scan and lab work and he and his verbalized complete understanding and agreement. I will contact his neurosurgeon to discuss his case. 1425: I discussed the patients case with Dr. Chester, Neurosurgery at [facility]. He or one of his partners at [facility] will follow up with the patient on Friday. 1500: I reevaluated the patient. He is feeling well. I discussed my conversation with Dr. Chester as well as his discharge instructions and he and his verbalized complete understanding and agreement. Medical Decision The patient is a 41 year old male who presents to the ED with swelling at an incision site. The differential diagnoses considered include: Seroma, hematoma, abscess and CSF collection. Lab results show: WBC's are normal. Hemoglobin is 12.9. Glucose is 85. Normal renal function. The patient is status post resection of a glioblastoma with radiation chemotherapy. He has been doing well but the noticed this lump on the top of his head this morning. CT scan shows a fluid collection. This could represent hematoma, seroma, abscess or CSF. CT scan confirmed the size. I discussed the case with his neurosurgeon. 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 However, the patient is afebrile and has no leukocytosis. The neurosurgeon suggested either coming through the emergency department today at his hospital for evaluation or to follow-up with one of his other neurosurgeons in the office on Friday. We reviewed the risks and benefits of follow-up today versus Friday. I encouraged the patient to return to this hospital immediately if he developed any fevers or worsening symptoms so she can be started on IV antibiotics and transferred to [place] for evaluation by his neurosurgeon. Medication Reconcilliation Current Medication List: was personally reviewed by me Blood Pressure Screening Patient's blood pressure: Normal blood pressure Blood pressure disposition: Did not require urgent referral Consults Time Called: 1420 Consulting Physician: Dr. Chester, Neurosurgery at [facility] Returned Call: 1425 I discussed the patients case with Dr. Chester, Neurosurgery at [facility]. He or one of his partners at [facility] will follow up with the patient on Friday. Impression Primary Impression: Scalp lump Scribe Attestation The scribe's documentation has been prepared under my direction and personally reviewed by me in its entirety. I confirm that the note above accurately reflects all work, treatment, procedures, and medical decision making performed by me. Departure Information Dispostion Home / Self-Care Referrals Kris Soler M.D. (PCP) Patient Instructions My [facility] Additional Instructions Follow up with Neurosurgery on Friday at [facility]. Return here to the ER if symptoms worsen such as fever.
[2017-01-04 12:38] LABS: BASO % 0.2 %; BASO ABS # 0.02 K/uL (0-0.2); COMPLETE YES; EOS % 0.4 %; IG% 1.7 %; LYMPH % 9.9 %; LYMPH ABS # 0.97 K/uL (1.2-3.4); MEAN CELL VOLUME 94.6 fL (80-100); MEAN CORPUSCULAR HEMOGLOBIN 30.5 pg (25-34); MEAN CORPUSCULAR HGB CONC 32.3 g/dl (32-36); MEAN PLATELET VOLUME 8.8 fL (7.4-10.4); MONO % 9.6 %; NEUT % 78.2 %; PLATELET COUNT 203 K/uL (130-400); RED BLOOD COUNT 4.23 M/uL (4.7-6.1); WHITE BLOOD COUNT 9.76 K/uL (4.8-10.8)
[2017-01-04 12:56] LABS: BUN/CREATININE RATIO 26.1 (10-20); CREATININE 0.59 mg/dl (0.60-1.40); POTASSIUM 3.8 mmol/L (3.5-5.1)
--- NOTE | 2017-01-04 13:09 | DIAGNOSTIC IMAGING REPORT ---
CT OF THE HEAD WITHOUT CONTRAST CLINICAL HISTORY: Evaluate fluid collection on top of head near incision. COMPARISON STUDY: Head CT and MRI of the brain November 01, 2016. CT DOSE: 537.48 mGy.cm TECHNIQUE: Helical axial images of the head were obtained without IV contrast. Automated exposure control was utilized for the study. A dose lowering technique was utilized adhering to the principles of ALARA. FINDINGS: A bifrontal craniotomy is again noted. Note is made of a 2.3 x 0.7 cm elliptical hyperdensity within the left superior aspect of the scalp adjacent to the incision. This appears new since exam of November 01, 2016. This is partially imaged on this exam. Postoperative findings from a right frontal resection are noted. Overlying extra axial hyperdensity is unchanged. This may be post surgical. Subtle hyperdensity within the anterior right frontal lobe extending into the corpus callosum measures approximately 4.2 x 3.3 cm. This is suboptimally assessed by CT. Mass effect appears diminished since head CT and MRI of November 01, 2016. This suggest improving edema. IMPRESSION: 1. Status post bifrontal craniotomy. Small elliptical hyperdense scalp fluid collection overlying the left aspect of the craniotomy measures approximately 2.3 x 0.7 cm. This is partially imaged on this exam but appears new since head CT of November 01, 2016. This fluid collection is nonspecific and could reflect a seroma, small hematoma, pseudomeningocele or abscess. 2. Status post right frontal lobe resection. Suboptimal evaluation for residual/recurrent tumor on this unenhanced CT. 12.2 x 3.3 cm hypodensity along the resection margin could reflect postoperative change, radiation necrosis or tumor. However, associated mass effect has improved since exam of November 01, 2016 suggesting an interval improvement. Electronically signed by: Roe Daniel M.D. 01/04/2017 1:08 PM Dictated Date/Time: 01/04/2017 12:57 PM
[2017-01-04 15:19] VITALS: BP 113/77; PULSE 78; TEMP 36.9; O2SAT 95
[2017-01-09] MEDS ORDERED: TEMO1CAP4 PO (15:25)
[2017-01-09] MEDS ORDERED: TEMO100I PO (15:25)
== END 2017-01-04 15:20 | disposition home or self-care (01) ==
LOC: C.EDB 10:43 → C.EDC 15:20
DX: R22.0 Localized swelling, mass and lump, head (principal); Z98.890 Other specified postprocedural states; Z85.841 Personal history of malignant neoplasm of brain; G40.909 Epilepsy, unspecified, not intractable, without status epilepticus; Z83.3 Family history of diabetes mellitus; G47.30 Sleep apnea, unspecified; Z79.899 Other long term (current) drug therapy

== ENCOUNTER → 2017-01-09 | Outpatient (CLI) | payer BC ==
[~2017-01-09] MED LIST changes: -ALPHTAB4 PO; +SERT-234 PO; -SERT50TA PO; -TEMO1CAP PO; -TEMO1CAP11 PO; +TEMO1CAP4 PO
[2017-01-09 15:10] VITALS: BP 106/70; PULSE 80; TEMP 36.6; O2SAT 96
--- NOTE | 2017-01-09 17:00 | Radiation Oncology Follow-Up ---
Radiation Oncology Follow-Up Date of Visit Jan 09, 2017. Reason For Visit One-month follow-up Radiation Completion Date 12/09/16 Diagnosis (1) Glioblastoma multiforme of frontal lobe Status: Acute Onset Date: 08/26/2016 Location: right frontal lobe Stage: IV Permanent Comment: Mental status changes 08/22/2016 Finding of a right frontal lobe mass 5.5 cm Status post bicoronal incision with right frontal craniotomy with stereotactic volumetric resection of the right frontal brain tumor 08/26/2016 (Dr. Patel - [facility]) Glioblastoma WHO grade 4 Incision and drainage of wound infection 09/22/2016 Last Edited By: Pooja Rivera on October 15, 2016 09:48 History of Present Illness Mr. Khan is a 41-year-old gentleman who initially presented with confusion, loss of balance and headaches which initially started back in May 2016. The patient was traveling with his children in the [place] area. The patient presented to the emergency room on 08/22/2016 at the [facility] in [place], [place]. He did have a CT of the head performed on 2016 which revealed a mass present in the inferior right frontal lobe that is heterogeneous in density and measures 6.6 cm in the greatest dimension. The mass was noted to compress the right lateral ventricle and there was a midline shift noted. The patient did also have an MRI of the brain completed subsequently which confirmed a multicystic an inhomogeneously enhancing right medial frontal lobe mass that measures up to 5.6 cm in the greatest dimension; there was marked with surrounding edema and subfalcine herniation with right to left shift of midline with potential leptomeningeal involvement. The patient was brought to the operating room on 08/26/2016 for a bicortical craniectomy by Dr. Colin Patel. As per his operative report, Dr. Patel was able to resect 90% of the tumor and had to avoid areas near neurosensory structures. The pathology confirmed glioblastoma, WHO grade IV. The patient did have a follow-up MRI of the brain on 08/27/2016 which showed postoperative changes following gross total resection of medial right superior frontal intra- axial tumor but no evidence of gross residual tumor within or surrounding the surgical margin. The patient did have postoperative complications and did present to the [facility] emergency room on 09/21/2016. The patient was transferred to [facility] where he underwent incision and drainage of the abscess on 09/22/2016. The patient did have multiple oncology consultations with Dr. Hiram Plummer from [facility] and Dr. Joyce from [facility]. In general, both recommended consideration for adjuvant chemotherapy and radiation therapy. The patient did go for a second opinion consultation at [facility] and saw Dr. Julien on 10/03/2016. Dr. Julien recommended adjuvant chemotherapy and radiation therapy with consideration of Novocure with adjuvant temozolomide. The patient plans to continue to follow with Dr. Julien. We are now seeing the patient in consultation discuss role of adjuvant radiation therapy. Currently, the patient is doing relatively well. He denies any focal neurologic deficits. He is currently being tapered off of dexamethasone. Plan was for him to be treated with combined radiation and chemotherapy. The radiation was completed 12/09/2016. He received 6000 cGy. The chemotherapy was comprised of Temodar. Interim History He is continued close follow-up at [facility]. He had a recheck visit and MRI of the brain on 11/26/2016 this showed post frontal parietal craniotomy with resection of right frontal lobe mass. Resection cavity in the right frontal lobe is decreased in size compared to prior. Significantly decreased mass effect, with resolution of right to left shift. There is residual extra-axial blood products along the resection cavity. T2 FLAIR hyperintensity surrounding the resection cavity is decreased compared to prior. T2/FLAIR hyperintensity with mild enhancement, extending across the Camilla and anterior body of the corpus callosum, consistent with residual tumor. Resection cavity with surrounding nodular enhancement, concerning for residual tumor. Decreased mass effect. This was reviewed with the patient and his . They're understanding is that there was improvement compared to the prior MRI. He developed a lump on the top of his head and was evaluated with a CAT scan on December 05. This was performed at [facility]. This showed evolving postsurgical changes status post debulking of a right frontal lobe glioblastoma. Question slight interval increase in FLAIR signal abnormality in the inferior right frontal lobe. Degree of enhancement appears diminished which could be related to evolving postsurgical changes and/or posttreatment changes. Continue follow-up is advised. New subgaleal fluid collection in the left parasagittal vertex adjacent to craniotomy incision. Findings could represent a pseudomeningocele, however the exact contents of this fluid collection are poorly assessed on this study. The fluid collection at the top of the head is currently stable. They' ve noticed no changes to the overlying skin. There is no associated tenderness. Allergies Coded Allergies: No Known Allergies (Unverified , 12/03/16) Home Medications Scheduled Amlodipine (Norvasc), 10 MG PO DAILY Dexamethasone (Dexamethasone), 2 MG PO DAILY Latanoprost (Xalatan 0.005% Oph Yulia), 1 DROPS OP HS Levetiracetam (Keppra), 1 TAB PO BID Lisinopril (Prinivil), 10 MG PO DAILY Metformin Hcl (Metformin Hcl Er), 1,000 MG PO BID Pantoprazole (Protonix), 40 MG PO DAILY Sertraline (Zoloft), 100 MG PO DAILY Temozolomide (Temodar), 1 TAB PO DAILY Temozolomide (Temodar), 1 TAB PO DAILY Scheduled PRN Meclizine Hcl (Meclizine Hcl), 1 TAB PO DAILY PRN for DIZZINESS Ondansetron Hcl (Zofran), 8 MG PO Q8 PRN for Nausea Polyethylene Glycol 3350 (Miralax), 17 GM PO DAILY PRN for Constipation Review of Systems Gastrointestinal: Symptoms: Diarrhea GI Comments: Diarrhea about 3 times/week - relates to "junk" he eats; Oral: Symptoms: No Problems Respiratory: Symptoms: WNL Urinary: Symptoms: WNL Skin: Symptoms: No Problems Other Skin Symptoms: Very thin old dry zaidi desqu. on right side of head;No skin care currently Physical Exam Vital Signs Date Time Temp Pulse Resp B/P (MAP) Pulse Ox O2 Delivery O2 Flow Rate FiO2 01/09/17 15:10 36.6 80 12 106/70 96 Pain: Patient Pain Scale: 0 - 10 Initial Pain Intensity: 0.0 Additional Comments: Lump that developed on top of head is tender to touch only Fatigue: None General Appearance: no apparent distress, + pertinent finding (there is a palpable mass on the right vertex of the scalp. This is nontender. It is soft and easily compressed. There is no ecchymosis. There is no erythema. 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, no motor/sensory deficits, alert, normal mood/affect Skin: warm/dry Laboratory Studies Test 11/01/16 21:55 11/01/16 22:25 11/06/16 18:25 11/13/16 10:20 Prothrombin Time 11.1 SECONDS (9.0-12.0) Prothrombin Time INR 1.0 (0.9-1.1) PTT 29.0 SECONDS (21.0-31.0) Partial Thromboplastin Ratio 1.1 Phosphorus Level 2.6 mg/dl (2.5-4.9) Magnesium Level 1.8 mg/dl (1.8-2.4) Thyroid Stimulating Hormone (TSH) 2.010 uIu/ml (0.300-4.500) Urine Color YELLOW Urine Appearance CLEAR (CLEAR) Urine pH 7.0 (4.5-7.5) Urine Specific [place] 1.009 (1.000-1.030) Urine Protein NEG (NEG) Urine Glucose (UA) TRACE (NEG) Urine Ketones 1+ (NEG) Urine Occult Blood NEG (NEG) Urine Nitrite NEG (NEG) Urine Bilirubin NEG (NEG) Urine Urobilinogen NEG (NEG) Urine Leukocyte Esterase NEG (NEG) Nucleated RBC Absolute Count (auto) 0.07 K/uL (0-0) Neutrophils % (Manual) 71.3 % 73.8 % Lymphocytes % (Manual) 6.1 % 15.7 % Monocytes % (Manual) 7.8 % 7.0 % Metamyelocytes % 7.0 % 0.9 % Myelocytes % 7.8 % 1.7 % Nucleated Red Blood Cells % 0.4 % Neutrophils # (Manual) 12.84 K/uL (1.4-6.5) 11.92 K/uL (1.4-6.5) Total Absolute Neutrophils 12.84 K/uL (1.4-6.5) 11.92 K/uL (1.4-6.5) Lymphocytes # (Manual) 1.10 K/uL (1.2-3.4) 2.54 K/uL (1.2-3.4) Total Absolute Lymphocytes 1.10 K/uL (1.2-3.4) 2.54 K/uL (1.2-3.4) Monocytes # (Manual) 1.40 K/uL (0.11-0.59) 1.13 K/uL (0.11-0.59) Metamyelocytes # 1.26 K/uL (0-0) 0.15 K/uL (0-0) Myelocytes # 1.40 K/uL (0-0) 0.27 K/uL (0-0) Echinocytes 1+ Eosinophils % (Manual) 0.9 % Eosinophils # (Manual) 0.15 K/uL (0-0.5) Red Blood Cell Morphology Unremarkable Test 11/27/16 10:05 12/03/16 12:00 12/03/16 12:15 12/04/16 10:54 Total Bilirubin 0.2 mg/dl (0.2-1) 0.5 mg/dl (0.2-1) Aspartate Amino Transferase (AST) 6 U/L (15-37) 8 U/L (15-37) Alanine Aminotransferase (ALT) 48 U/L (12-78) 56 U/L (12-78) Alkaline Phosphatase 73 U/L (45-117) 57 U/L (45-117) Total Protein 6.4 gm/dl (6.4-8.2) 7.0 gm/dl (6.4-8.2) Albumin 3.3 gm/dl (3.4-5.0) 3.7 gm/dl (3.4-5.0) Globulin 3.1 gm/dl (2.5-4.0) 3.3 gm/dl (2.5-4.0) Albumin/Globulin Ratio 1.1 (0.9-2) 1.1 (0.9-2) Sodium Level 134 mmol/L (136-145) Potassium Level 4.2 mmol/L (3.5-5.1) Chloride Level 99 mmol/L (98-107) Carbon Dioxide Level 25 mmol/L (21-32) Anion Gap 10.0 mmol/L (3-11) Blood Urea Nitrogen 19 mg/dl (7-18) Creatinine 0.75 mg/dl (0.60-1.40) Est Creatinine Clear Calc Drug Dose 150.8 ml/min Estimated GFR () 131.1 Estimated GFR (Non- 113.1 BUN/Creatinine Ratio 24.7 (10-20) Random Glucose 117 mg/dl (70-99) Calcium Level 9.4 mg/dl (8.5-10.1) Lipase 103 U/L (73-393) Urine Color YELLOW Urine Appearance CLEAR (CLEAR) Urine pH 7.0 (4.5-7.5) Urine Specific [place] 1.013 (1.000-1.030) Urine Protein NEG (NEG) Urine Glucose (UA) NEG (NEG) Urine Ketones NEG (NEG) Urine Occult Blood NEG (NEG) Urine Nitrite NEG (NEG) Urine Bilirubin NEG (NEG) Urine Urobilinogen NEG (NEG) Urine Leukocyte Esterase NEG (NEG) White Blood Count 12.36 K/uL (4.8-10.8) Red Blood Count 4.67 M/uL (4.7-6.1) Hemoglobin 15.1 g/dL (14.0-18.0) Hematocrit 43.6 % (42-52) Mean Corpuscular Volume 93.4 fL (80-100) Mean Corpuscular Hemoglobin 32.3 pg (25-34) Mean Corpuscular Hemoglobin Concent 34.6 g/dl (32-36) Platelet Count 242 K/uL (130-400) Mean Platelet Volume 9.1 fL (7.4-10.4) Neutrophils (%) (Auto) 79.8 % Lymphocytes (%) (Auto) 8.3 % Monocytes (%) (Auto) 9.4 % Eosinophils (%) (Auto) 0.1 % Basophils (%) (Auto) 0.1 % Neutrophils # (Auto) 9.88 K/uL (1.4-6.5) Lymphocytes # (Auto) 1.02 K/uL (1.2-3.4) Monocytes # (Auto) 1.16 K/uL (0.11-0.59) Eosinophils # (Auto) 0.01 K/uL (0-0.5) Basophils # (Auto) 0.01 K/uL (0-0.2) RDW Standard Deviation 52.9 fL (36.4-46.3) RDW Coefficient of Variation 15.5 % (11.5-14.5) Immature Granulocyte % (Auto) 2.3 % Immature Granulocyte # (Auto) 0.28 K/uL (0.00-0.02) Test 01/04/17 12:15 White Blood Count 9.76 K/uL (4.8-10.8) Red Blood Count 4.23 M/uL (4.7-6.1) Hemoglobin 12.9 g/dL (14.0-18.0) Hematocrit 40.0 % (42-52) Mean Corpuscular Volume 94.6 fL (80-100) Mean Corpuscular Hemoglobin 30.5 pg (25-34) Mean Corpuscular Hemoglobin Concent 32.3 g/dl (32-36) Platelet Count 203 K/uL (130-400) Mean Platelet Volume 8.8 fL (7.4-10.4) Neutrophils (%) (Auto) 78.2 % Lymphocytes (%) (Auto) 9.9 % Monocytes (%) (Auto) 9.6 % Eosinophils (%) (Auto) 0.4 % Basophils (%) (Auto) 0.2 % Neutrophils # (Auto) 7.62 K/uL (1.4-6.5) Lymphocytes # (Auto) 0.97 K/uL (1.2-3.4) Monocytes # (Auto) 0.94 K/uL (0.11-0.59) Eosinophils # (Auto) 0.04 K/uL (0-0.5) Basophils # (Auto) 0.02 K/uL (0-0.2) RDW Standard Deviation 49.7 fL (36.4-46.3) RDW Coefficient of Variation 14.4 % (11.5-14.5) Immature Granulocyte % (Auto) 1.7 % Immature Granulocyte # (Auto) 0.17 K/uL (0.00-0.02) Sodium Level 141 mmol/L (136-145) Potassium Level 3.8 mmol/L (3.5-5.1) Chloride Level 108 mmol/L (98-107) Carbon Dioxide Level 25 mmol/L (21-32) Anion Gap 8.0 mmol/L (3-11) Blood Urea Nitrogen 15 mg/dl (7-18) Creatinine 0.59 mg/dl (0.60-1.40) Est Creatinine Clear Calc Drug Dose 200.3 ml/min Estimated GFR () 144.7 Estimated GFR (Non- 124.9 BUN/Creatinine Ratio 26.1 (10-20) Random Glucose 85 mg/dl (70-99) Calcium Level 9.0 mg/dl (8.5-10.1) Assessment & Plan Plan: Patient is also seen today by Dr. Peterson. Plans are in process for him to begin treatment with Optune therapy. He'll be starting his monthly doses of Temodar. Continue follow-up with medical oncology. He is also following a slow steroid taper. He is also been a be seen by neurology on January 16. He' ll continue follow-up visits at [facility]. He'll have a recheck visit an MRI every 2 months. We asked him to return to our office in 3 months. He may call if he has any questions or concerns in the interim. Today, I did review the indications, alternatives, benefits, risks and side effects of tumor treating guillen (TTF) (Optune, Novocure) for treatment of glioblastoma. We did discuss the indications and contraindications regarding tumor treating guillen. We did discuss the most common side effects including but not limited to irritant contact dermatitis, allergic contact dermatitis, skin erosion, skin ulcer, skin infection, skin pustules. Additionally, we did explain that there are additional side effects from temozolomide which will be explained by the medical oncologist in greater detail; we did attempt to answer any questions to the best of our ability regarding chemotherapy. We did review potential treatment remedies for skin issues. We have explained that the device company will be involved in insurance authorization as well as device management and for patient support and education. The patient understands we are not technically responsible for the operation and/or functionality of the treatment device which is supplied by the device company. I explained that our role is to act as the prescriber for the device, help monitor the patient's overall clinical progress (including ordering MRIs of the brain and other essential studies) as well as manage side effects from TTF. We did also discussed the treatment planning process which may or may not include assistance from the device company. We did also discuss general follow-up for glioblastoma which will be coordinated with the patient's medical oncologist or neuro-oncologist. The patient understands and had multiple questions which were answered to their satisfaction. The patient would like to move forward with Novocure treatment. I agree with note created by Pooja Rivera PA-C. I reviewed the patient's chart and information with her. I have examined and evaluated the patient. I reviewed relevant clinical information and answered the patient's and/or family' s questions. Total Time In Follow-Up We spent 20 minutes speaking to the patient and performing examination. I spent 15 minutes reviewing information and completing this note. AK I spent 20 minutes examining and counseling the patient. I spent 5 minutes completing this note. PRINCIPAL BIOSTATISTICIAN Copy To Kris Soler M.D.; Hiram Plummer D.O.
== END | disposition home or self-care (01) ==
LOC: C.ONC 14:53
PROVIDERS: ATTEND Physician Assistant Medical
DX: Z08 Encounter for follow-up examination after completed treatment for malignant neoplasm (principal); Z92.3 Personal history of irradiation; Z85.841 Personal history of malignant neoplasm of brain

== ENCOUNTER → 2017-03-17 | Outpatient (CLI) | payer BC ==
[2017-03-17 10:41] LABS: THYROID STIMULATING HORMONE 2.47 uIu/ml (0.300-4.500)
[2017-03-17 10:42] LABS: RATIO 4.6 mcg/mg (0-30.0)
== END | disposition home or self-care (01) ==
LOC: C.LAB 11:21
PROVIDERS: ATTEND Family Medicine
DX: E11.9 Type 2 diabetes mellitus without complications (principal)

== ENCOUNTER → 2017-04-03 | Outpatient (CLI) | payer BC ==
--- NOTE | 2017-04-03 13:00 | DIAGNOSTIC IMAGING REPORT ---
ULTRASOUND BILATERAL LOWER EXTREMITY VENOUS CLINICAL HISTORY: Glioblastoma. COMPARISON STUDY: No priors. TECHNIQUE: Real-time, grayscale, and color Doppler sonography of the deep veins of the right and left lower extremity was performed from the inguinal crease to the calf. Compression and augmentation were utilized. FINDINGS: There is no sonographic evidence of deep venous thrombosis identified in the right or left lower extremity. The common femoral, superficial femoral, and popliteal veins are patent and normally compressible bilaterally. The greater saphenous vein and the profunda femoris vein at the junction with the common femoral vein are clear in both legs. The visualized calf veins are patent bilaterally. IMPRESSION: There is no sonographic evidence of deep venous thrombosis identified in the right or left lower extremity. Electronically signed by: Junaid Allen M.D. 04/03/2017 12:58 PM Dictated Date/Time: 04/03/2017 12:57 PM
== END | disposition home or self-care (01) ==
LOC: C.ULTRBC 12:23
PROVIDERS: ATTEND Internal Medicine Hematology & Oncology
DX: C71.1 Malignant neoplasm of frontal lobe (principal)

== ENCOUNTER 2017-05-08 18:40 | Inpatient (IN) | payer BC ==
[~2017-05-08] VITALS: Ht 175.3 cm; Wt 121.1 kg
[~2017-05-08 18:40] MED LIST changes: -LATA0.5S OP; +LATA0.5S OPB
[2017-05-08] MEDS ORDERED: OXYCODONE HCL IR 5 MG TAB (IMMEDIATE RELEASE) PO STA (18:59)
[2017-05-08] MEDS ORDERED: SODIUM CHLORIDE 0.9% 1000ML 1,000 ML IV ONE (18:59)
--- NOTE | 2017-05-08 19:12 | EMERGENCY ROOM VISIT NOTE ---
History Report prepared by Primitivo: Va Ghotra Under the Supervision of: Dr. Nigel Velazquez D.O. First contact with patient: 18:50 Chief Complaint: FEVER Stated Complaint: PAIN-ACUTE, SWELLING,FEVER, BRAIN TUMOR History of Present Illness The patient is a 42 year old male who presents to the Emergency Room with complaints of worsening right sided facial swelling beginning two days ago. The patient had a craniotomy surgery for a glioblastoma in his right frontal lobe in August. He was told the surgery removed 85-90% of the tumor. The patient had radiation and is currently taking a chemo pill. His last chemo pill dose was April 25. His last MRI on April 17 showed no evidence of disease. The patient was started on dexamethasone after his surgery for swelling. After that, he was started on hydrocortisone to wean him off of the dexamethasone. The patient started to get weaned off of hydrocortisone two days ago. Yesterday , the patient was seen at [place], [place] for increased swelling to the right side of his face. There, he had a CT of brain which showed sinusitis and the patient was started on Augmentin. The patient had one dose of Augmentin yesterday and two doses of it today. The patient reports that his swelling started to go down yesterday but when he woke up this morning had more swelling and redness around his right eye. The patient also reports diffuse pain to the right side of his face. The patient notes a fever and last had Tylenol around 4 hours ago. The patient reports a non-productive cough and facial pain. The patient has a history of sleep apnea, diabetes, vasectomy, and MRSA to his craniotomy incision site. He notes his blood sugar has been well- regulated for the past couple months. He denies any history of TB contact or history of living in a assisted. Source of History: patient Onset: 2 days ago Position: head Quality: other (swelling) Timing: worsening Associated Symptoms: + fevers, + cough Review of Systems See HPI for pertinent positives & negatives. A total of 10 systems reviewed and were otherwise negative. Past Medical & Surgical Medical Problems: (1) Diabetes mellitus (2) Glioblastoma (3) Glioblastoma (4) Sleep apnea Family History No pertinent family history Social History Smoking Status: Never Smoker Alcohol Use: none Drug Use: none Marital Status: Housing Status: lives with family Occupation Status: unemployed Current/Historical Medications Scheduled Amlodipine (Norvasc), 10 MG PO DAILY Amoxicillin & Pot Clavulanate (Augmentin 875-125 mg), 1 TAB PO BID Hydrocortisone (Cortef), 10 MG PO BID Insulin Glargine (Basaglar Kwikpen), 50 UNITS SQ HS Insulin Lispro (Human) (Humalog Kwikpen), 1 DOSE SQ UD Levetiracetam (Keppra), 1,500 MG PO QPM Levetiracetam (Keppra), 1,000 MG PO QAM Lisinopril (Prinivil), 10 MG PO DAILY Metformin Hcl (Metformin Hcl Er), 1,000 MG PO BID Pantoprazole (Protonix), 40 MG PO DAILY Sertraline (Zoloft), 100 MG PO HS Temozolomide (Temozolomide), 100 MG PO UD Temozolomide (Temozolomide), 250 MG PO UD Scheduled PRN Acetaminophen (Tylenol), 1,000 MG PO Q6H PRN for Pain or Fever Meclizine Hcl (Meclizine Hcl), 25 MG PO DAILY PRN for DIZZINESS Ondansetron Hcl (Zofran), 8 MG PO Q8 PRN for Nausea Polyethylene Glycol 3350 (Miralax), 17 GM PO DAILY PRN for Constipation Allergies Coded Allergies: No Known Allergies (Unverified , 05/08/17) Physical Exam Vital Signs Date Time Temp Pulse Resp B/P (MAP) Pulse Ox O2 Delivery O2 Flow Rate FiO2 05/08/17 22:01 37.2 104 18 134/86 95 Room Air 05/08/17 20:37 38.0 97 20 123/75 92 Room Air 05/08/17 20:09 97 Room Air 05/08/17 18:43 37.4 100 20 140/85 97 Room Air Physical Exam GENERAL: Patient is awake, alert, somewhat anxious, and in no acute distress. Patient is resting comfortably. EYES: The conjunctivae are clear. The pupils are round and reactive. Significant right periorbital swelling with tenderness throughout, no proptosis or pain with extraocular muscle testing. EARS, NOSE, MOUTH AND THROAT: The nose is without any evidence of any deformity. Drainage from right nare. Mucous membranes are moist tongue is midline NECK: The neck is nontender and supple. RESPIRATORY: Normal respiratory effort is noted there is no evidence of wheezing rhonchi or rales CARDIOVASCULAR: Regular rate and rhythm noted there no murmurs rubs or gallops normal S1 normal S2 GASTROINTESTINAL: The abdomen is soft. Bowel sounds are present in all quadrants. Abdomen is nontender MUSCULOSKELETAL/EXTREMITIES: There is no evidence of gross deformity full range of motion is noted in the hips and shoulders SKIN: Pedal edema bilaterally. There is no obvious evidence of any rash. There are no petechiae, pallor or cyanosis noted. NEUROLOGIC: Patient is awake alert and oriented x3. Medical Decision & Procedures ER Provider Diagnostic Interpretation: Radiology results as stated below per my review and radiologist interpretation: CHEST ONE VIEW PORTABLE FINDINGS: The lungs are clear. Cardiac silhouette is normal in size. No pleural effusions. No pneumothorax. IMPRESSION: No acute process. Electronically signed by: Ritesh Dougherty M.D. SINUS CT FINDINGS: Mild mucosal thickening within the right frontoethmoidal recess. The frontal sinuses, left ethmoid air cells, sphenoid sinuses, and right maxillary sinus are clear. There is mild mucosal thickening within the left axillary sinus and within the right ethmoid air cells. No fluid levels within the nasal sinuses. The mastoid air cells are clear. No acute fractures within the visualized osseous structures. There is frontal and right-sided scalp subcutaneous edema as well as right periorbital and right facial subcutaneous edema. This is likely result of the interval right frontal craniotomy. Therefore, this favors postoperative change. The right frontal lobe mass and vasogenic edema are partially imaged on this study. The bilateral ostiomeatal units are patent. The nasal septum is midline. The orbits are unremarkable. IMPRESSION: 1. Mild mucosal thickening within the right ethmoid air cells and left maxillary sinus. No fluid levels within the paranasal sinuses. 2. There is frontal and right-sided scalp subcutaneous edema as well as right periorbital and right facial subcutaneous edema. This is nonspecific but suggestive of postoperative changes given the interval right craniotomy. 3. The right frontal lobe mass and vasogenic edema are partially imaged on this study and are better appreciated on the recent brain MRI/head CT. Electronically signed by: Ritesh Dougherty M.D. Laboratory Results Test 05/08/17 20:12 05/08/17 21:42 05/08/17 21:47 Immature Granulocyte % (Auto) 0.3 % White Blood Count 14.96 K/uL (4.8-10.8) Red Blood Count 4.20 M/uL (4.7-6.1) Hemoglobin 12.3 g/dL (14.0-18.0) Hematocrit 36.9 % (42-52) Mean Corpuscular Volume 87.9 fL (80-100) Mean Corpuscular Hemoglobin 29.3 pg (25-34) Mean Corpuscular Hemoglobin Concent 33.3 g/dl (32-36) Platelet Count 397 K/uL (130-400) Mean Platelet Volume 9.4 fL (7.4-10.4) Neutrophils (%) (Auto) 74.8 % Lymphocytes (%) (Auto) 14.3 % Monocytes (%) (Auto) 9.8 % Eosinophils (%) (Auto) 0.7 % Basophils (%) (Auto) 0.1 % Neutrophils # (Auto) 11.18 K/uL (1.4-6.5) Lymphocytes # (Auto) 2.14 K/uL (1.2-3.4) Monocytes # (Auto) 1.47 K/uL (0.11-0.59) Eosinophils # (Auto) 0.11 K/uL (0-0.5) Basophils # (Auto) 0.02 K/uL (0-0.2) Immature Granulocyte # (Auto) 0.04 K/uL (0.00-0.02) Erythrocyte Sedimentation Rate 82 mm/hr (0-14) Prothrombin Time 10.9 SECONDS (9.0-12.0) Prothromb Time International Ratio 1.0 (0.9-1.1) Activated Partial Thromboplast Time 31.7 SECONDS (21.0-31.0) Partial Thromboplastin Ratio 1.2 Magnesium Level 2.0 mg/dl (1.8-2.4) Total Bilirubin 0.3 mg/dl (0.2-1) Aspartate Amino Transf (AST/SGOT) 10 U/L (15-37) Alanine Aminotransferase (ALT/SGPT) 21 U/L (12-78) Alkaline Phosphatase 57 U/L (45-117) Total Creatine Kinase 92 U/L (39-308) Creatine Kinase MB < 0.5 ng/ml (0.5-3.6) Creatine Kinase MB Ratio (0-3.0) C-Reactive Protein 18.90 mg/dl (0-0.29) Total Protein 7.9 gm/dl (6.4-8.2) Albumin 3.2 gm/dl (3.4-5.0) Globulin 4.7 gm/dl (2.5-4.0) Albumin/Globulin Ratio 0.7 (0.9-2) Lipase 55 U/L (73-393) Random Cortisol 23.05 mcg/dl Bedside Lactic Acid Venous 1.38 mmol/L (0.90-1.70) Laboratory results per my review. Medications Administered Medications (Trade) Dose Ordered Sig/Marianne Route Start Time Stop Time Status Last Admin Dose Admin Sodium Chloride 1,000 ml @ 999 mls/hr Q1H1M ONCE IV 05/08/17 18:59 05/08/17 19:59 DC 05/08/17 19:57 999 MLS/HR Oxycodone HCl (Roxicodone Immediate Rel Tab) 10 mg NOW STAT PO 05/08/17 18:59 05/08/17 19:02 DC 05/08/17 19:57 10 MG Ondansetron HCl (Zofran Inj) 4 mg NOW STAT IV 05/08/17 19:17 05/08/17 19:18 DC 05/08/17 19:57 4 MG Acetaminophen (Tylenol Tab) 1,000 mg NOW STAT PO 05/08/17 20:38 05/08/17 20:39 DC 05/08/17 20:44 1,000 MG Ampicillin Sodium/ Sulbactam Sodium 3000 mg/Sodium Chloride 108 ml @ 200 mls/hr ONE ONCE IV 05/08/17 21:30 05/08/17 22:02 DC 05/08/17 22:02 200 MLS/HR ED Course 3: The patient was evaluated in room C5. A complete history and physical examination were performed. 1858: Ordered Oxycodone HCl 10 mg PO, NSS 1,000 ml @ 999 mls/hr IV. 1914: Per nursing, the patient just vomiting. 1916: Ordered Zofran Inj 4 mg IV. 2036: The patient has spiked a fever. 2037: Ordered Tylenol Tab 1000 mg PO. 2129: Ordered Ampicillin Sodium/Sulbactam Sodium 3000mg/Sodium Chloride 108 ml @ 200 mls/hr IV. 2155: I discussed the patient's case with Dr. Deal. The patient will be evaluated for further management. 2156: I updated the patient on his test results he is willing to stay in the hospital. Medical Decision Prior records reviewed and summarized as above. Triage Nursing notes reviewed. Additional history obtained from the patient's significant other. The patient's history was concerning for swelling and redness of the skin. Differential diagnosis: Etiologies such as cellulitis, abscess, MRSA infection, DVT, necrotizing fasciitis, dermatitis, drug eruption, as well as others were entertained.. The patient is a 42-year-old male who presented to the emergency department for evaluation of frontal headache and redness over the face. The patient has a history of a glioblastoma which he had surgically removed at the beginning of your. The patient started having redness and pain over the right side of his face. He was started on antibiotic with no improvement. The patient also takes steroids for his cerebral edema from his tumor. I discussed the patient's laboratory radiographic studies with him. He was treated with IV fluids and IV antibiotics in emergency department. On subsequent reevaluation he was minimally improved. I discussed his case with the on-call [facility] hospitalist. They've agreed to evaluate the patient in the emergency apartment for further management and disposition. Medication Reconcilliation Current Medication List: was personally reviewed by me Blood Pressure Screening Patient's blood pressure: Elevated blood pressure Blood pressure disposition: Referred to PCP (will be evaluated by hospitalist) Consults Time Called: 2149 Consulting Physician: Dr. Deal Returned Call: 2155 I discussed the patient's case with Dr. Deal. The patient will be evaluated for further management. Impression Primary Impression: Facial cellulitis Additional Impression: Sinusitis Scribe Attestation The scribe's documentation has been prepared under my direction and personally reviewed by me in its entirety. I confirm that the note above accurately reflects all work, treatment, procedures, and medical decision making performed by me. Departure Information Dispostion Being Evaluated By Hospitalist Kris Simpson M.D. (PCP) Patient Instructions My [facility] Problem Qualifiers Additional Impression: Sinusitis Sinusitis location: unspecified location Chronicity: acute Recurrence: not specified as recurrent Qualified Codes: J01.90 - Acute sinusitis, unspecified
[2017-05-08] MEDS ORDERED: ONDANSETRON INJ 2 MG/ML 2 ML VIAL IV STA (19:17)
[2017-05-08] MEDS ORDERED: TEMO1CAP17 PO (19:32)
[2017-05-08] MEDS ORDERED: TEMO1CAP PO (19:32)
[2017-05-08] MEDS ORDERED: KPP/1000 PO ×2 (19:35)
[2017-05-08] MEDS ORDERED: HYDR10TA52 PO (19:36)
[2017-05-08] MEDS ORDERED: INSU100I23 SQ (20:00)
[2017-05-08] MEDS ORDERED: INSU100I2 SQ (20:00)
[2017-05-08] MEDS ORDERED: ACET-1256 PO (20:00)
[2017-05-08] MEDS ORDERED: LEVE500T13 PO ×2 (20:00)
[2017-05-08] MEDS ORDERED: AMOX875T PO (20:00)
[2017-05-08 20:25] LABS: BASO % 0.1 %; BASO ABS # 0.02 K/uL (0-0.2); COMPLETE YES; EOS % 0.7 %; HEMATOCRIT 36.9 % (42-52); IG% 0.3 %; LYMPH % 14.3 %; LYMPH ABS # 2.14 K/uL (1.2-3.4); MEAN CELL VOLUME 87.9 fL (80-100); MEAN CORPUSCULAR HEMOGLOBIN 29.3 pg (25-34); MEAN CORPUSCULAR HGB CONC 33.3 g/dl (32-36); MEAN PLATELET VOLUME 9.4 fL (7.4-10.4); MONO % 9.8 %; NEUT % 74.8 %; PLATELET COUNT 397 K/uL (130-400); WHITE BLOOD COUNT 14.96 K/uL (4.8-10.8)
--- NOTE | 2017-05-08 20:33 | DIAGNOSTIC IMAGING REPORT ---
CHEST ONE VIEW PORTABLE HISTORY: Sepsis COMPARISON: None. FINDINGS: The lungs are clear. Cardiac silhouette is normal in size. No pleural effusions. No pneumothorax. IMPRESSION: No acute process. Electronically signed by: Ritesh Dougherty M.D. 05/08/2017 8:32 PM Dictated Date/Time: 05/08/2017 8:31 PM
[2017-05-08] MEDS ORDERED: ACETAMINOPHEN 500 MG TAB PO STA (20:38)
--- NOTE | 2017-05-08 20:39 | DIAGNOSTIC IMAGING REPORT ---
SINUS CT CT DOSE: 552.16 mGy.cm HISTORY: right facial swelling TECHNIQUE: Multiaxial CT images of the paranasal sinuses were performed and reformatted in the coronal plane without the use of contrast. A dose lowering technique was utilized adhering to the principles of ALARA. COMPARISON: Head CT 01/04/2017. FINDINGS: Mild mucosal thickening within the right frontoethmoidal recess. The frontal sinuses, left ethmoid air cells, sphenoid sinuses, and right maxillary sinus are clear. There is mild mucosal thickening within the left axillary sinus and within the right ethmoid air cells. No fluid levels within the nasal sinuses. The mastoid air cells are clear. No acute fractures within the visualized osseous structures. There is frontal and right-sided scalp subcutaneous edema as well as right periorbital and right facial subcutaneous edema. This is likely result of the interval right frontal craniotomy. Therefore, this favors postoperative change. The right frontal lobe mass and vasogenic edema are partially imaged on this study. The bilateral ostiomeatal units are patent. The nasal septum is midline. The orbits are unremarkable. IMPRESSION: 1. Mild mucosal thickening within the right ethmoid air cells and left maxillary sinus. No fluid levels within the paranasal sinuses. 2. There is frontal and right-sided scalp subcutaneous edema as well as right periorbital and right facial subcutaneous edema. This is nonspecific but suggestive of postoperative changes given the interval right craniotomy. 3. The right frontal lobe mass and vasogenic edema are partially imaged on this study and are better appreciated on the recent brain MRI/head CT. Electronically signed by: Ritesh Dougherty M.D. 05/08/2017 8:38 PM Dictated Date/Time: 05/08/2017 8:32 PM
[2017-05-08 20:50] LABS: ALT/SGPT 21 U/L (12-78); AST/SGOT 10 U/L (15-37); BLOOD UREA NITROGEN 8 mg/dl (7-18); BUN/CREATININE RATIO 10.5 (10-20); CALCIUM 9.1 mg/dl (8.5-10.1); CARBON DIOXIDE 26 mmol/L (21-32); CHLORIDE 102 mmol/L (98-107); GLUCOSE 104 mg/dl (70-99); POTASSIUM 3.4 mmol/L (3.5-5.1); SODIUM 136 mmol/L (136-145)
[2017-05-08 20:52] LABS: ALB/GLOB RATIO 0.7 (0.9-2); ALKALINE PHOSPHATASE 57 U/L (45-117)
[2017-05-08 21:06] LABS: PARTIAL THROMBOPLASTIN RATIO 1.2; PROTHROMBIN TIME (PATIENT) 10.9 SECONDS (9.0-12.0)
[2017-05-08] MEDS ORDERED: AMPICILLIN/SULBACTAM SOD INJ 3,000 MG in SODIUM CHLORIDE 0.9% 100ML 100 ML IV ONE (21:30)
[2017-05-08] MEDS ORDERED: AMPICILLIN/SULBACTAM SOD INJ 1,500 MG in SODIUM CHLORIDE 0.9% 100ML 100 ML IV SCH (23:30)
[2017-05-08] MEDS ORDERED: ALUMINUM/MAGNESIUM/SIMETH (MAALOX MAX) 30 ML UDC PO PRN (23:30)
[2017-05-08] MEDS ORDERED: ONDANSETRON INJ 2 MG/ML 2 ML VIAL IV PRN (23:30)
[2017-05-08] MEDS ORDERED: VANCOMYCIN INJ 1,000 MG in SODIUM CHLORIDE 0.9% 250ML 250 ML IV SCH (23:30)
[2017-05-08] MEDS ORDERED: MAGNESIUM HYDROXIDE SUSP 30 ML UDC PO PRN (23:30)
[2017-05-08] MEDS ORDERED: VANCOMYCIN INJ 2,000 MG in SODIUM CHLORIDE 0.9% 500ML 500 ML IV STA (23:30)
[2017-05-08] MEDS ORDERED: POLYETHYLENE (MIRALAX) 17 GM PACK PO PRN ×2 (23:30→23:45)
[2017-05-08] MEDS ORDERED: ACETAMINOPHEN 325 MG TAB PO PRN (23:30)
[2017-05-08] MEDS ORDERED: GLUCAGON FOR INJ 1 MG VIAL SQ PRN (23:45)
[2017-05-08] MEDS ORDERED: ONDANSETRON 8 MG TAB PO PRN (23:45)
[2017-05-08] MEDS ORDERED: GLUCOSE 40% GEL 15 GM TUBE PO PRN (23:45)
[2017-05-08] MEDS ORDERED: PIPERACILL/TAZOBAC IV 3.375 GM in DEXTROSE 5% 100ML 100 ML IV SCH (23:45)
[2017-05-08] MEDS ORDERED: MECLIZINE HCL 25 MG TAB PO PRN (23:45)
[2017-05-08] MEDS ORDERED: DEXTROSE 50% 50 ML SYR IV PRN (23:45)
[2017-05-08] MEDS ORDERED: GLUCOSE 10 TABS/TUBE PO PRN (23:45)
[2017-05-09] VITALS (11 sets, daily range): BP systolic 129–154; BP diastolic 77–89; PULSE 87–102; TEMP 36.7–38.2; O2SAT 92–98; Ht 175.3 cm; Wt 121.1 kg
[2017-05-09] MEDS ORDERED: HYDROCORTISONE 10 MG TAB PO STA (00:50)
[2017-05-09] MEDS ORDERED: PIPERACILL/TAZOBAC IV 4.5 GM in DEXTROSE 5% 100ML IV ONE (01:00)
[2017-05-09] MEDS ORDERED: PIPERACILL/TAZOBAC CONSULT ACTIVE PRN (01:00)
[2017-05-09] MEDS ORDERED: POTASSIUM CHLORIDE INJ 40 MEQ in SODIUM CHLORIDE 0.9% 1000ML 1,000 ML IV ONE (01:00)
[2017-05-09] MEDS ORDERED: VANCOMYCIN CONSULT ACTIVE PRN (01:00)
--- NOTE | 2017-05-09 01:58 | History and Physical ---
History & Physical Date & Time of Service: May 09, 2017 at 01:43 Chief Complaint: Facial Cellulitis, Glioblastoma Primary Care Physician: Kris Soler M.D. History of Present Illness Source: patient, clinic records, hospital records This is a 42-year-old male with past medical history of glioblastoma, type 2 diabetes, hypertension, GERD and SIMBA, who presents to the emergency department with 2 days of right facial swelling. The patient reports that he's been having cold symptoms include coughing and runny nose for the past 1 week. Yesterday morning when he woke up, he notes that his left eye was swollen as well as the skin above it. He was seen by his family physician was started on a course of Augmentin. However this morning he woke up and he states that it felt worse and also started to look red which is a change from previous. Reports the area being painful and tender to touch. His other symptoms include purulent nasal discharge. He has tried Tylenol but this has not been helpful. He has not measured her temperature at home but has felt feverish. His appetite is slightly diminished for the past day. He did have one episode of vomiting. In the emergency room the patient had features of sepsis and the decision was made to admit the patient for IV antibiotic treatment. Past Medical/Surgical History Medical Problems: (1) Glioblastoma Status: Chronic Type 2 diabetes Hypertension Depression GERD Obstructive sleep apnea Status post craniotomy 2 Family History No pertinent family history Social History Smoking Status: Never Smoker Smokeless Tobacco Use: No Alcohol Use: none Drug Use: none Marital Status: Housing status: lives with family Occupational Status: unemployed Immunizations History of Influenza Vaccine: Unknown History of Tetanus Vaccine?: Unknown History of Pneumococcal: Unknown History of Hepatitis B Vaccine: Unknown Multi-Drug Resistant Organisms History of MDRO: Yes Allergies Coded Allergies: No Known Allergies (Unverified , 05/08/17) Home Medications Scheduled Amlodipine (Norvasc), 10 MG PO DAILY Amoxicillin & Pot Clavulanate (Augmentin 875-125 mg), 1 TAB PO BID Hydrocortisone (Cortef), 10 MG PO BID Insulin Glargine (Basaglar Kwikpen), 50 UNITS SQ HS Insulin Lispro (Human) (Humalog Kwikpen), 1 DOSE SQ UD Levetiracetam (Keppra), 1,500 MG PO QPM Levetiracetam (Keppra), 1,000 MG PO QAM Lisinopril (Prinivil), 10 MG PO DAILY Metformin Hcl (Metformin Hcl Er), 1,000 MG PO BID Pantoprazole (Protonix), 40 MG PO DAILY Sertraline (Zoloft), 100 MG PO HS Temozolomide (Temozolomide), 100 MG PO UD Temozolomide (Temozolomide), 250 MG PO UD Scheduled PRN Acetaminophen (Tylenol), 1,000 MG PO Q6H PRN for Pain or Fever Meclizine Hcl (Meclizine Hcl), 25 MG PO DAILY PRN for DIZZINESS Ondansetron Hcl (Zofran), 8 MG PO Q8 PRN for Nausea Polyethylene Glycol 3350 (Miralax), 17 GM PO DAILY PRN for Constipation Review of Systems A 10 point review of systems was negative unless stated above. Physical Exam Vital Signs Date Time Temp Pulse Resp B/P (MAP) Pulse Ox O2 Delivery O2 Flow Rate FiO2 05/09/17 00:22 94 95 05/09/17 00:01 37.4 101 18 137/89 94 Room Air 05/08/17 23:47 37.2 91 18 122/76 95 05/08/17 22:01 37.2 104 18 134/86 95 Room Air 05/08/17 20:37 38.0 97 20 123/75 92 Room Air 05/08/17 20:09 97 Room Air 05/08/17 18:43 37.4 100 20 140/85 97 Room Air General Appearance: WD/WN, no apparent distress, + obese Head: normocephalic, atraumatic, + pertinent finding (craniotomy scar, well healed. scalp erythema above right eye and right temporal area) Eyes: PERRL, EOMI, + pertinent finding (periorbital swelling) ENT: normal ENT inspection, pharynx normal Neck: supple, no adenopathy, no JVD Respiratory/Chest: lungs clear, no respiratory distress Cardiovascular: regular rate, rhythm, no gallop, no murmur Abdomen/GI: normal bowel sounds, non tender, soft Extremities/Musculoskelatal: no calf tenderness, no pedal edema Neurologic/Psych: alert, normal mood/affect, oriented x 3 Skin: normal color, warm/dry, no rash Lymphatic: no adenopathy Diagnostics Laboratory Results Results Past 24 Hours Test 05/08/17 20:12 05/08/17 21:42 05/08/17 21:47 Range/Units White Blood Count 14.96 4.8-10.8 K/uL Red Blood Count 4.20 4.7-6.1 M/uL Hemoglobin 12.3 14.0-18.0 g/dL Hematocrit 36.9 42-52 % Mean Corpuscular Volume 87.9 80-100 fL Mean Corpuscular Hemoglobin 29.3 25-34 pg Mean Corpuscular Hemoglobin Concent 33.3 32-36 g/dl Platelet Count 397 130-400 K/uL Mean Platelet Volume 9.4 7.4-10.4 fL Neutrophils (%) (Auto) 74.8 % Lymphocytes (%) (Auto) 14.3 % Monocytes (%) (Auto) 9.8 % Eosinophils (%) (Auto) 0.7 % Basophils (%) (Auto) 0.1 % Neutrophils # (Auto) 11.18 1.4-6.5 K/uL Lymphocytes # (Auto) 2.14 1.2-3.4 K/uL Monocytes # (Auto) 1.47 0.11-0.59 K/uL Eosinophils # (Auto) 0.11 0-0.5 K/uL Basophils # (Auto) 0.02 0-0.2 K/uL RDW Standard Deviation 44.3 36.4-46.3 fL RDW Coefficient of Variation 13.9 11.5-14.5 % Immature Granulocyte % (Auto) 0.3 % Immature Granulocyte # (Auto) 0.04 0.00-0.02 K/uL Erythrocyte Sedimentation Rate 82 0-14 mm/hr Prothrombin Time 10.9 9.0-12.0 SECONDS Prothromb Time International Ratio 1.0 0.9-1.1 Activated Partial Thromboplast Time 31.7 21.0-31.0 SECONDS Partial Thromboplastin Ratio 1.2 Sodium Level 136 136-145 mmol/L Potassium Level 3.4 3.5-5.1 mmol/L Chloride Level 102 98-107 mmol/L Carbon Dioxide Level 26 21-32 mmol/L Anion Gap 9.0 3-11 mmol/L Blood Urea Nitrogen 8 7-18 mg/dl Creatinine 0.80 0.60-1.40 mg/dl Est Creatinine Clear Calc Drug Dose 153.3 ml/min Estimated GFR () 126.8 Estimated GFR (Non- 109.4 BUN/Creatinine Ratio 10.5 10-20 Random Glucose 104 70-99 mg/dl Calcium Level 9.1 8.5-10.1 mg/dl Magnesium Level 2.0 1.8-2.4 mg/dl Total Bilirubin 0.3 0.2-1 mg/dl Aspartate Amino Transf (AST/SGOT) 10 15-37 U/L Alanine Aminotransferase (ALT/SGPT) 21 12-78 U/L Alkaline Phosphatase 57 45-117 U/L Total Creatine Kinase 92 39-308 U/L Creatine Kinase MB < 0.5 0.5-3.6 ng/ml Creatine Kinase MB Ratio 0-3.0 C-Reactive Protein 18.90 0-0.29 mg/dl Total Protein 7.9 6.4-8.2 gm/dl Albumin 3.2 3.4-5.0 gm/dl Globulin 4.7 2.5-4.0 gm/dl Albumin/Globulin Ratio 0.7 0.9-2 Lipase 55 73-393 U/L Random Cortisol 23.05 mcg/dl Bedside Lactic Acid Venous 1.38 0.90-1.70 mmol/L Microbiology Results 05/08/17 Blood Culture, Received Pending 05/08/17 Blood Culture, Received Pending Diagnostic Radiology [~ rep ct add3]] SINUS CT CT DOSE: 552.16 mGy.cm HISTORY: right facial swelling TECHNIQUE: Multiaxial CT images of the paranasal sinuses were performed and reformatted in the coronal plane without the use of contrast. A dose lowering technique was utilized adhering to the principles of ALARA. COMPARISON: Head CT 01/04/2017. FINDINGS: Mild mucosal thickening within the right frontoethmoidal recess. The frontal sinuses, left ethmoid air cells, sphenoid sinuses, and right maxillary sinus are clear. There is mild mucosal thickening within the left axillary sinus and within the right ethmoid air cells. No fluid levels within the nasal sinuses. The mastoid air cells are clear. No acute fractures within the visualized osseous structures. There is frontal and right-sided scalp subcutaneous edema as well as right periorbital and right facial subcutaneous edema. This is likely result of the interval right frontal craniotomy. Therefore, this favors postoperative change. The right frontal lobe mass and vasogenic edema are partially imaged on this study. The bilateral ostiomeatal units are patent. The nasal septum is midline. The orbits are unremarkable. IMPRESSION: 1. Mild mucosal thickening within the right ethmoid air cells and left maxillary sinus. No fluid levels within the paranasal sinuses. 2. There is frontal and right-sided scalp subcutaneous edema as well as right periorbital and right facial subcutaneous edema. This is nonspecific but suggestive of postoperative changes given the interval right craniotomy. 3. The right frontal lobe mass and vasogenic edema are partially imaged on this study and are better appreciated on the recent brain MRI/head CT. Impression Assessment and Plan 42-year-old male with sepsis secondary to right facial cellulitis and possibly bacterial sinusitis. Our plan for him is as follows: - Sepsis due to right facial cellulitis: Blood cultures pending. The patient has a history of MRSA, and is a diabetic therefore will start treatment with IV vancomycin and Zosyn. Patient does not have features of shock on arrival. A lactate was not done on arrival, but will be checked with morning labs. - Glioblastoma: Continue Keppra for seizure prophylaxis. Continue Zofran as needed for nausea. Continue meclizine as needed for dizziness. The patient follows with Dr. Plummer. Need to consult hematology per day team. The patient wears [employer] scalp electrodes usually, but this is been taken off because of the infection. The will bring in the [employer] cap tomorrow. Patient is currently on a steroid taper for brain edema. In the setting of his acute illness I had added an extra 10 mg of hydrocortisone to his regimen. This can be continued for 48 hours, and can then go back to his usual dosing of 10 mg hydrocortisone twice a day. - Depression: Continue sertraline. - Type 2 diabetes mellitus: Hold Humalog. Start sliding scale insulin. Continue home dose of Lantus. - Hypertension: Continue amlodipine - GERD: Continue pantoprazole - Obstructive sleep apnea: The patient wears CPAP at home, which we will order here. The patient takes 2 L of oxygen nighttime. - DVT prophylaxis: SCD, TEDs, Lovenox - Level 1 Full Code - Admission to telemetry Attending addendum: I have physically seen this patient, have supervised the medical residents activities, and agree with the H&P unless as otherwise noted. Assessment and Plan: Right facial cellulitis/SIRS-- MRSA history Place on vancomycin IV and Zosyn IV. Follow blood cultures Follow serial laboratories. Diabetes mellitus-- Continue Lantus glargine 50 units subcutaneous at bedtime. Hold metformin 1000 mg by mouth twice a day Place on Accu-Cheks before meals and at bedtime with NovoLog coverage per scale Glioblastoma Imaging chest performed yesterday at [place] shows no change in cerebral edema. For stress dosing increase cortisone from 10 mg by mouth twice a day to previous dose of 20 mg in the morning and 10 mg in the evening. Consult Dr. Plummer, his oncologist. Seizure disorder --Continue Keppra 1000 mg in the morning and 1500 mg in the evening. Hypertension--continue amlodipine 10 mg by mouth daily with hold parameters Hold lisinopril Depression-- Continue sertraline 100 mg by mouth at bedtime GERD-- Continue pantoprazole 40 mg by mouth daily. Obstructive sleep apnea-- Continue home CPAP. Level of Care Telemetry Advanced Directives Existing Living Will: Yes Existing Power of Educational Technologist: Yes () Resuscitation Status FULL RESUSCITATION VTE Prophylaxis VTE Risk Assessment Done? Y/N: Yes Risk Level: Moderate Given or contraindicated: Enoxaparin (Lovenox)SQ Social Service Consult Cancer Patient Under [place]
[2017-05-09] MEDS: ACETAMINOPHEN 500 MG TAB PO PRN ×2 (04:05→09:19)
[2017-05-09 05:37] LABS: URINE APPEARANCE CLEAR (CLEAR); URINE BILIRUBIN NEG (NEG); URINE COLOR YELLOW; URINE NITRITE NEG (NEG); URINE PH 5.5 (4.5-7.5); URINE SPECIFIC GRAVITY 1.023 (1.000-1.030); UROBILINOGEN NEG (NEG); ZZUR CULT IF INDIC CLEAN CATCH NO
[2017-05-09] MEDS: PIPERACILL/TAZOBAC IV 4.5 GM in DEXTROSE 5% 100ML IV SCH ×3 (05:37→21:58)
[2017-05-09 05:49] LABS: MANUAL MICROSCOPIC REQUIRED? NO; REVIEW REQ? NO
[2017-05-09] MEDS ORDERED: VANCOMYCIN INJ 2,250 MG in SODIUM CHLORIDE 0.9% 500ML 500 ML IV SCH (06:00)
[2017-05-09 06:37] LABS: HEMATOCRIT 34.2 % (42-52); MEAN CELL VOLUME 86.8 fL (80-100); MEAN CORPUSCULAR HEMOGLOBIN 29.2 pg (25-34); MEAN CORPUSCULAR HGB CONC 33.6 g/dl (32-36); MEAN PLATELET VOLUME 9.1 fL (7.4-10.4); PLATELET COUNT 374 K/uL (130-400); RED BLOOD COUNT 3.94 M/uL (4.7-6.1); WHITE BLOOD COUNT 13.71 K/uL (4.8-10.8)
[2017-05-09 06:59] LABS: BUN/CREATININE RATIO 10.2 (10-20); CALCIUM 8.8 mg/dl (8.5-10.1); CREATININE 0.79 mg/dl (0.60-1.40); POTASSIUM 3.3 mmol/L (3.5-5.1)
[2017-05-09] MEDS ORDERED: HYDROCORTISONE 10 MG TAB PO SCH (09:00)
[2017-05-09] MEDS: LEVETIRACETAM 500 MG TAB PO SCH ×2 (09:19→20:36)
[2017-05-09] MEDS: LISINOPRIL 10 MG TAB PO SCH (09:19)
[2017-05-09] MEDS: AMLODIPINE BESYLATE 5 MG TAB PO SCH (09:20)
[2017-05-09] MEDS: HYDROCORTISONE 10 MG TAB PO SCH ×2 (09:20→20:37)
[2017-05-09] MEDS: PANTOprazole SOD 40 MG TAB PO SCH (09:21)
[2017-05-09] MEDS: ENOXAPARIN 40 MG/0.4 ML SYR SC SCH (09:21)
[2017-05-09] MEDS: INSULIN ASPART 100 UNITS/ML 3 ML PEN SC SCH ×4 (09:29→20:38)
--- NOTE | 2017-05-09 09:50 | Pharmacy Progress Note ---
Pharmacy Antibiotic Consult Date of Service: May 09, 2017. Pharmacy Dosing Scope Pharmacy is consulted to initiate vancomycin and zosyn IV dosing therapy, order appropriate labs and adjust drug dose/frequency. Subjective The patient is a 42 year old male admitted on May 08, 2017 at 23:23. Objective Height (Feet): 5 Height (Inches): 9.00 Weight (Kilograms): 121.000 Lab Results (24hrs): Test 05/08/17 20:12 05/08/17 21:42 05/08/17 21:47 05/09/17 05:19 White Blood Count 14.96 K/uL (4.8-10.8) Red Blood Count 4.20 M/uL (4.7-6.1) Hemoglobin 12.3 g/dL (14.0-18.0) Hematocrit 36.9 % (42-52) Mean Corpuscular Volume 87.9 fL (80-100) Mean Corpuscular Hemoglobin 29.3 pg (25-34) Mean Corpuscular Hemoglobin Concent 33.3 g/dl (32-36) Platelet Count 397 K/uL (130-400) Mean Platelet Volume 9.4 fL (7.4-10.4) Neutrophils (%) (Auto) 74.8 % Lymphocytes (%) (Auto) 14.3 % Monocytes (%) (Auto) 9.8 % Eosinophils (%) (Auto) 0.7 % Basophils (%) (Auto) 0.1 % Neutrophils # (Auto) 11.18 K/uL (1.4-6.5) Lymphocytes # (Auto) 2.14 K/uL (1.2-3.4) Monocytes # (Auto) 1.47 K/uL (0.11-0.59) Eosinophils # (Auto) 0.11 K/uL (0-0.5) Basophils # (Auto) 0.02 K/uL (0-0.2) RDW Standard Deviation 44.3 fL (36.4-46.3) RDW Coefficient of Variation 13.9 % (11.5-14.5) Immature Granulocyte % (Auto) 0.3 % Immature Granulocyte # (Auto) 0.04 K/uL (0.00-0.02) Erythrocyte Sedimentation Rate 82 mm/hr (0-14) Prothrombin Time 10.9 SECONDS (9.0-12.0) Prothromb Time International Ratio 1.0 (0.9-1.1) Activated Partial Thromboplast Time 31.7 SECONDS (21.0-31.0) Partial Thromboplastin Ratio 1.2 Sodium Level 136 mmol/L (136-145) Potassium Level 3.4 mmol/L (3.5-5.1) Chloride Level 102 mmol/L (98-107) Carbon Dioxide Level 26 mmol/L (21-32) Anion Gap 9.0 mmol/L (3-11) Blood Urea Nitrogen 8 mg/dl (7-18) Creatinine 0.80 mg/dl (0.60-1.40) Est Creatinine Clear Calc Drug Dose 153.3 ml/min Estimated GFR () 126.8 Estimated GFR (Non- 109.4 BUN/Creatinine Ratio 10.5 (10-20) Random Glucose 104 mg/dl (70-99) Calcium Level 9.1 mg/dl (8.5-10.1) Magnesium Level 2.0 mg/dl (1.8-2.4) Total Bilirubin 0.3 mg/dl (0.2-1) Aspartate Amino Transf (AST/SGOT) 10 U/L (15-37) Alanine Aminotransferase (ALT/SGPT) 21 U/L (12-78) Alkaline Phosphatase 57 U/L (45-117) Total Creatine Kinase 92 U/L (39-308) Creatine Kinase MB < 0.5 ng/ml (0.5-3.6) Creatine Kinase MB Ratio (0-3.0) C-Reactive Protein 18.90 mg/dl (0-0.29) Total Protein 7.9 gm/dl (6.4-8.2) Albumin 3.2 gm/dl (3.4-5.0) Globulin 4.7 gm/dl (2.5-4.0) Albumin/Globulin Ratio 0.7 (0.9-2) Lipase 55 U/L (73-393) Random Cortisol 23.05 mcg/dl Bedside Lactic Acid Venous 1.38 mmol/L (0.90-1.70) Urine Color YELLOW Urine Appearance CLEAR (CLEAR) Urine pH 5.5 (4.5-7.5) Urine Specific Bolt 1.023 (1.000-1.030) Urine Protein NEG (NEG) Urine Glucose (UA) NEG (NEG) Urine Ketones NEG (NEG) Urine Occult Blood NEG (NEG) Urine Nitrite NEG (NEG) Urine Bilirubin NEG (NEG) Urine Urobilinogen NEG (NEG) Urine Leukocyte Esterase NEG (NEG) Urine WBC (Auto) 1-5 /hpf (0-5) Urine RBC (Auto) 0-4 /hpf (0-4) Urine Hyaline Casts (Auto) 1-5 /lpf (0-5) Urine Epithelial Cells (Auto) 10-20 /lpf (0-5) Urine Bacteria (Auto) NEG (NEG) Test 05/09/17 06:30 05/09/17 06:55 White Blood Count 13.71 K/uL (4.8-10.8) Red Blood Count 3.94 M/uL (4.7-6.1) Hemoglobin 11.5 g/dL (14.0-18.0) Hematocrit 34.2 % (42-52) Mean Corpuscular Volume 86.8 fL (80-100) Mean Corpuscular Hemoglobin 29.2 pg (25-34) Mean Corpuscular Hemoglobin Concent 33.6 g/dl (32-36) RDW Standard Deviation 44.2 fL (36.4-46.3) RDW Coefficient of Variation 13.9 % (11.5-14.5) Platelet Count 374 K/uL (130-400) Mean Platelet Volume 9.1 fL (7.4-10.4) Sodium Level 138 mmol/L (136-145) Potassium Level 3.3 mmol/L (3.5-5.1) Chloride Level 104 mmol/L (98-107) Carbon Dioxide Level 24 mmol/L (21-32) Anion Gap 10.0 mmol/L (3-11) Blood Urea Nitrogen 8 mg/dl (7-18) Creatinine 0.79 mg/dl (0.60-1.40) Est Creatinine Clear Calc Drug Dose 154.9 ml/min Estimated GFR () 127.5 Estimated GFR (Non- 110.0 BUN/Creatinine Ratio 10.2 (10-20) Random Glucose 149 mg/dl (70-99) Lactic Acid Level 0.9 mmol/L (0.4-2.0) Calcium Level 8.8 mg/dl (8.5-10.1) Bedside Glucose 151 mg/dl (70-99) Assessment & Plan Patient started on vancomycin and zosyn for facial cellulitis. BC x 2 are pending. MRSA nasal swab pending. Previously started on Augmentin outpatient. Febrile on admission. Vancomycin: * Vancomycin 2gm x 1 given in the ED * Then Vancomycin 2.25 gm iv q 8 hrs started to achieve an estimated trough ~15- 20 mcg/ml * Estimated kinetics: t 1/2~8 hrs, ke~0.08 hr-1, CrCl >100 ml/min (based upon max CrCl ~100 ml/min) * Trough ordered prior to the 2200 dose on 05/09 to ensure therapeutic; note this will be before steady state however patient at risk for drug accumulation due to BMI>35 kg/m2 (actual BMI ~39 kg/m2) Zosyn: * 4.5 gm x 1; then 4.5 gm iv q 8 hrs (appropriate for CrCl >20 ml/min, BMI>35 kg /m2) Pharmacy will continue to follow and will adjust dose/frequency as necessary. Thank you
[2017-05-09] MEDS: GUAIFENESIN/CODEINE 200MG/20MG 10ML UDC PO PRN ×2 (12:16→17:32)
[2017-05-09] MEDS: VANCOMYCIN INJ 2,250 MG in SODIUM CHLORIDE 0.9% 500ML 500 ML IV SCH ×2 (12:18→21:58)
[2017-05-09] MEDS: KETOROLAC TROMETHAMINE 15 MG/ML VIAL IV. PRN ×2 (13:53→20:08)
[2017-05-09] MEDS ORDERED: NURSING VERBAL MED ORDER ONE (14:00)
--- NOTE | 2017-05-09 17:23 | Family Medicine Progress Note ---
Progress Note Date of Service May 09, 2017. Subjective Pt evaluation today including: conversation w/ patient, conversation w/ family , physical exam, chart review, lab review, review of studies Pain: 5/10 pain over right frontal region superior to orbit Voiding: no voiding problems, no incontinence Patient is resting comfortably in this morning with mild discomfort to palpation of the right frontotemporal region. He states he took Augmentin but the swelling and redness continued to worsen. 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 Constitutional: + fatigue, No fever, No chills, No sweats Eyes: + problem reported (Swelling of right eyelid), No worsening of vision , No eye pain, No redness, No discharge, No diplopia Respiratory: No cough, No sputum, No wheezing, No shortness of breath Cardiovascular: No chest pain, No palpitations Abdomen: No pain, No nausea, No vomiting, No diarrhea Psychiatric: No depression symptoms, No anxiety Medications Current Inpatient Medications Medications (Trade) Dose Ordered Sig/Marianne Route Start Time Stop Time Status Last Admin Dose Admin Enoxaparin Sodium (Lovenox Inj) 40 mg Q24H SC 05/09/17 09:00 06/08/17 08:59 05/09/17 09:21 40 MG Al Hydrox/Mg Hydrox/Simethicone (Maalox Max Susp) 15 ml Q4H PRN PO 05/08/17 23:30 06/07/17 23:29 Magnesium Hydroxide (Milk Of Magnesia Susp) 30 ml Q12H PRN PO 05/08/17 23:30 06/07/17 23:29 Ondansetron HCl (Zofran Inj) 4 mg Q6H PRN IV 05/08/17 23:30 06/07/17 23:29 Polyethylene (Miralax Powder Packet) 17 gm DAILY PRN PO 05/08/17 23:30 06/07/17 23:29 Insulin Aspart (novoLOG ASPART) SLIDING SCALE G... ACHS SC 05/09/17 07:00 06/08/17 06:59 05/09/17 12:24 4 UNITS Glucose (Glucose 40% Gel) 15-30 GRAMS 15 GRAMS... UD PRN PO 05/08/17 23:45 06/07/17 23:44 Glucose (Glucose Chew Tab) 4-8 Tablets 4 Tabl... UD PRN PO 05/08/17 23:45 06/07/17 23:44 Dextrose (Dextrose 50% 50ML Syringe) 25-50ML OF 50% DW IV FOR... UD PRN IV 05/08/17 23:45 06/07/17 23:44 Glucagon (Glucagon Inj) 1 mg UD PRN SQ 05/08/17 23:45 06/07/17 23:44 Acetaminophen (Tylenol Tab) 1,000 mg Q6H PRN PO 05/08/17 23:45 06/07/17 23:44 05/09/17 09:19 1,000 MG Amlodipine Besylate (Norvasc Tab) 10 mg DAILY PO 05/09/17 09:00 06/08/17 08:59 05/09/17 09:20 10 MG Hydrocortisone (Cortef Tab) 10 mg BID PO 05/09/17 09:00 06/08/17 08:59 05/09/17 09:20 10 MG Insulin Glargine (Lantus Solostar Pen) 50 units HS SQ 05/09/17 21:00 06/08/17 20:59 Levetiracetam (Keppra Tab) 1,000 mg QAM PO 05/09/17 09:00 06/08/17 08:59 05/09/17 09:19 1,000 MG Levetiracetam (Keppra Tab) 1,500 mg QPM PO 05/09/17 21:00 06/08/17 20:59 Lisinopril (Zestril Tab) 10 mg DAILY PO 05/09/17 09:00 06/08/17 08:59 05/09/17 09:19 10 MG Meclizine HCl (Antivert Tab) 25 mg DAILY PRN PO 05/08/17 23:45 06/07/17 23:44 Ondansetron HCl (Zofran Tab) 8 mg Q8 PRN PO 05/08/17 23:45 06/07/17 23:44 Pantoprazole Sodium (Protonix Tab) 40 mg DAILY PO 05/09/17 09:00 06/08/17 08:59 05/09/17 09:21 40 MG Sertraline HCl (Zoloft Tab) 100 mg HS PO 05/09/17 21:00 06/08/17 20:59 Piperacillin Sod/ Tazobactam Sod 4.5 gm/Dextrose 120 ml @ 30 mls/hr Q8H IV 05/09/17 06:00 05/19/17 05:59 05/09/17 16:35 30 MLS/HR Piperacillin Sod/ Tazobactam Sod (Consult) 1 ea UD PRN N/A 05/09/17 01:00 06/08/17 00:59 Vancomycin HCl (Consult) 1 ea UD PRN N/A 05/09/17 01:00 06/08/17 00:59 Hydrocortisone (Cortef Tab) 10 mg QAM PO 05/10/17 09:00 06/09/17 08:59 Vancomycin HCl 2250 mg/Sodium Chloride 545 ml @ 200 mls/hr Q8H IV 05/09/17 14:00 05/19/17 13:59 05/09/17 12:18 200 MLS/HR Codeine Phosphate/ Guaifenesin (Robitussin-AC Sugar Free Syrup) 10 ml Q6H PRN PO 05/09/17 09:45 06/08/17 09:44 05/09/17 12:16 10 ML Ketorolac Tromethamine (Toradol Inj) 15 mg Q6 PRN IV. 05/09/17 14:00 05/14/17 13:59 05/09/17 13:53 15 MG Objective Vital Signs Date Time Temp Pulse Resp B/P (MAP) Pulse Ox O2 Delivery O2 Flow Rate FiO2 05/09/17 16:27 Room Air 05/09/17 15:37 36.7 88 18 150/86 (107) 92 Room Air 05/09/17 12:00 Room Air 05/09/17 11:30 37.0 87 20 142/84 (103) 93 Room Air 05/09/17 08:07 37.0 95 18 130/83 (99) 95 Room Air 05/09/17 08:00 Room Air 05/09/17 05:33 37.0 05/09/17 04:00 95 Room Air 05/09/17 03:38 38.2 93 18 129/85 (100) 95 CPAP 05/09/17 00:22 94 95 05/09/17 00:01 37.4 101 18 137/89 94 Room Air 05/08/17 23:47 37.2 91 18 122/76 95 05/08/17 22:01 37.2 104 18 134/86 95 Room Air 05/08/17 20:37 38.0 97 20 123/75 92 Room Air 05/08/17 20:09 97 Room Air 05/08/17 18:43 37.4 100 20 140/85 97 Room Air Physical Exam General Appearance: WD/WN, no apparent distress Eyes: + pertinent finding (swelling and erythema of the inferio and superior eyelid with no firmness to palpation. PERRL, EOMI. No tenderness with palpation of the eyelids.) Respiratory/Chest: chest non-tender, lungs clear, normal breath sounds Cardiovascular: regular rate, rhythm, no edema, no gallop Abdomen: normal bowel sounds, non tender, soft Neurologic/Psychiatric: direct entry midwife II-XII nml as tested, alert, normal mood/affect, oriented x 3 Skin: + pertinent finding (Erythema over the frontotemporal region of the head with erythema. No palpable abscess at this time. Tender to palpation over the frontotemporal region although not over the orbit itself. ) Laboratory Results Results Past 24 Hours Test 05/08/17 20:12 05/08/17 21:42 05/08/17 21:47 05/09/17 05:19 Range/Units White Blood Count 14.96 4.8-10.8 K/uL Red Blood Count 4.20 4.7-6.1 M/uL Hemoglobin 12.3 14.0-18.0 g/dL Hematocrit 36.9 42-52 % Mean Corpuscular Volume 87.9 80-100 fL Mean Corpuscular Hemoglobin 29.3 25-34 pg Mean Corpuscular Hemoglobin Concent 33.3 32-36 g/dl Platelet Count 397 130-400 K/uL Mean Platelet Volume 9.4 7.4-10.4 fL Neutrophils (%) (Auto) 74.8 % Lymphocytes (%) (Auto) 14.3 % Monocytes (%) (Auto) 9.8 % Eosinophils (%) (Auto) 0.7 % Basophils (%) (Auto) 0.1 % Neutrophils # (Auto) 11.18 1.4-6.5 K/uL Lymphocytes # (Auto) 2.14 1.2-3.4 K/uL Monocytes # (Auto) 1.47 0.11-0.59 K/uL Eosinophils # (Auto) 0.11 0-0.5 K/uL Basophils # (Auto) 0.02 0-0.2 K/uL RDW Standard Deviation 44.3 36.4-46.3 fL RDW Coefficient of Variation 13.9 11.5-14.5 % Immature Granulocyte % (Auto) 0.3 % Immature Granulocyte # (Auto) 0.04 0.00-0.02 K/uL Erythrocyte Sedimentation Rate 82 0-14 mm/hr Prothrombin Time 10.9 9.0-12.0 SECONDS Prothromb Time International Ratio 1.0 0.9-1.1 Activated Partial Thromboplast Time 31.7 21.0-31.0 SECONDS Partial Thromboplastin Ratio 1.2 Sodium Level 136 136-145 mmol/L Potassium Level 3.4 3.5-5.1 mmol/L Chloride Level 102 98-107 mmol/L Carbon Dioxide Level 26 21-32 mmol/L Anion Gap 9.0 3-11 mmol/L Blood Urea Nitrogen 8 7-18 mg/dl Creatinine 0.80 0.60-1.40 mg/dl Est Creatinine Clear Calc Drug Dose 153.3 ml/min Estimated GFR () 126.8 Estimated GFR (Non- 109.4 BUN/Creatinine Ratio 10.5 10-20 Random Glucose 104 70-99 mg/dl Calcium Level 9.1 8.5-10.1 mg/dl Magnesium Level 2.0 1.8-2.4 mg/dl Total Bilirubin 0.3 0.2-1 mg/dl Aspartate Amino Transf (AST/SGOT) 10 15-37 U/L Alanine Aminotransferase (ALT/SGPT) 21 12-78 U/L Alkaline Phosphatase 57 45-117 U/L Total Creatine Kinase 92 39-308 U/L Creatine Kinase MB < 0.5 0.5-3.6 ng/ml Creatine Kinase MB Ratio 0-3.0 C-Reactive Protein 18.90 0-0.29 mg/dl Total Protein 7.9 6.4-8.2 gm/dl Albumin 3.2 3.4-5.0 gm/dl Globulin 4.7 2.5-4.0 gm/dl Albumin/Globulin Ratio 0.7 0.9-2 Lipase 55 73-393 U/L Random Cortisol 23.05 mcg/dl Bedside Lactic Acid Venous 1.38 0.90-1.70 mmol/L Urine Color YELLOW Urine Appearance CLEAR CLEAR Urine pH 5.5 4.5-7.5 Urine Specific Carter 1.023 1.000-1.030 Urine Protein NEG NEG Urine Glucose (UA) NEG NEG Urine Ketones NEG NEG Urine Occult Blood NEG NEG Urine Nitrite NEG NEG Urine Bilirubin NEG NEG Urine Urobilinogen NEG NEG Urine Leukocyte Esterase NEG NEG Urine WBC (Auto) 1-5 0-5 /hpf Urine RBC (Auto) 0-4 0-4 /hpf Urine Hyaline Casts (Auto) 1-5 0-5 /lpf Urine Epithelial Cells (Auto) 10-20 0-5 /lpf Urine Bacteria (Auto) NEG NEG Test 05/09/17 06:30 05/09/17 06:55 05/09/17 16:30 Range/Units White Blood Count 13.71 4.8-10.8 K/uL Red Blood Count 3.94 4.7-6.1 M/uL Hemoglobin 11.5 14.0-18.0 g/dL Hematocrit 34.2 42-52 % Mean Corpuscular Volume 86.8 80-100 fL Mean Corpuscular Hemoglobin 29.2 25-34 pg Mean Corpuscular Hemoglobin Concent 33.6 32-36 g/dl RDW Standard Deviation 44.2 36.4-46.3 fL RDW Coefficient of Variation 13.9 11.5-14.5 % Platelet Count 374 130-400 K/uL Mean Platelet Volume 9.1 7.4-10.4 fL Sodium Level 138 136-145 mmol/L Potassium Level 3.3 3.5-5.1 mmol/L Chloride Level 104 98-107 mmol/L Carbon Dioxide Level 24 21-32 mmol/L Anion Gap 10.0 3-11 mmol/L Blood Urea Nitrogen 8 7-18 mg/dl Creatinine 0.79 0.60-1.40 mg/dl Est Creatinine Clear Calc Drug Dose 154.9 ml/min Estimated GFR () 127.5 Estimated GFR (Non- 110.0 BUN/Creatinine Ratio 10.2 10-20 Random Glucose 149 70-99 mg/dl Lactic Acid Level 0.9 0.4-2.0 mmol/L Calcium Level 8.8 8.5-10.1 mg/dl Bedside Glucose 151 119 70-99 mg/dl Microbiology Results 05/08/17 Blood Culture, Received Pending 05/08/17 Blood Culture, Received Pending 05/09/17 MRSA DNA Surveillance Screen - Final, Complete Specimen Negative for MRSA by DNA Probe Assessment and Plan 42-year-old male with past medical history of Glioblastoma, Diabetes, and MRSA with sepsis secondary to right facial cellulitis. Continue IV antibiotics at this time and continue to monitor for improvement. 1) Facial Cellulitis w sepsis present on admission - failed augmentin so most likely resistant gram positives, vs less likely resistant gram neg - Vancomycin and Zosyn IV for now - with ongoing improvement would stop zosyn and continue vanco ---> transition to PO MRSA coverage - Blood cultures pending - CT Sinuses: Thickening over right ethmoid air cells and Left Maxillary sinus - Toradol 15mg q6h PRN for pain --> Currently well controlled - WBC of 13.71 2) Glioblastoma - Keppra prophylaxis for seizures - Zofran PRN for nausea - Meclizine PRN for dizziness - Oncologist Dr. Plummer - Patient wears [employer] scalp electrodes --> Possible contributor to erythema over scalp - Steroids --> previously on 10mg hydrocortisone but increased on admission to 10mg BID for 48 hours in setting of acute illness 3) Hypertension - Amlodipine 10mg Daily - Lisinopril 10mg Daily 4) Depression - Sertraline 5) T2D - SSI - Home Lantus 50 units HS 6) GERD - Pantoprazole 7) SIMBA - CPAP with 2L night time oxygen 8) DVT - Lovenox - SCD - TEDs 9) Code Status - Full Resuscitation Resident Physician Supervision Note: I interviewed and examined the patient. Discussed with Dr. Mazariegos and agree with findings and plan as documented in the note. Any exceptions or clarifications are listed here: None Documented By: Brandon Arthur feeling ok vitals noted, EOMI with no globe deformities, pupils OK, no pain on EOM. lids open. forehead warm and tender. eyelids discolored and swollen but NOT warm and tender facial cellulitis w sepsis - as above. anticipate improvement. no evidence of true orbital cellulitis/postseptal disease. stable for med surg Resident Tracking Resident Involvement: Resident Care Provided Care Provided: Adult [facility] Medicine
[2017-05-09] MEDS: SERTRALINE HCL 100 MG TAB PO SCH (20:36)
[2017-05-09] MEDS: INSULIN GLARGINE SOLOSTAR 100 UNITS/ML 3 ML PEN SQ SCH (20:40)
[2017-05-09] MEDS ORDERED: VANCOMYCIN TROUGH ONE (21:30)
[2017-05-10] MEDS: GUAIFENESIN/CODEINE 200MG/20MG 10ML UDC PO PRN ×5 (01:02→23:53)
[2017-05-10] MEDS: KETOROLAC TROMETHAMINE 15 MG/ML VIAL IV. PRN ×3 (02:48→22:48)
[2017-05-10 04:29] VITALS: BP_SYST 142; PULSE 90; TEMP 36.8; O2SAT 94
[2017-05-10] MEDS: VANCOMYCIN INJ 2,250 MG in SODIUM CHLORIDE 0.9% 500ML 500 ML IV SCH (06:40)
[2017-05-10] MEDS: PIPERACILL/TAZOBAC IV 4.5 GM in DEXTROSE 5% 100ML IV SCH (06:41)
[2017-05-10] MEDS: ACETAMINOPHEN 500 MG TAB PO PRN ×3 (06:45→20:12)
--- NOTE | 2017-05-10 06:49 | Family Medicine Progress Note ---
Progress Note Date of Service May 10, 2017. Subjective Pt evaluation today including: conversation w/ patient, conversation w/ family , physical exam, chart review, lab review, review of studies, conversation w/ retail consultant, review of inpatient medication list Patient feeling better today. He feels that his facial cellulitis is improving. The redness has improved and the tenderness has localized to the left forehead. He is not having fevers, although he is still having diaphoresis. He denies any headaches, sinus tenderness, ear pain or ocular symptoms including changes in vision, pain with EOM, worsening lid swelling. He does still have drainage out of the eye and morning crusting. Otherwise he denies CP, SOB, abdo pain. He is tolerating diet without N/V. He is voiding and stooling without issues. Management plans discussed and patient's and 's questions were answered to their satisfaction ROS unremarkable except as noted above. Objective Vital Signs Date Time Temp Pulse Resp B/P (MAP) Pulse Ox O2 Delivery O2 Flow Rate FiO2 05/10/17 04:29 36.8 90 18 142/ (47) 94 Room Air 05/10/17 00:00 Room Air 05/09/17 22:59 37.4 89 18 154/77 (102) 93 Room Air 05/09/17 20:00 Room Air 05/09/17 18:43 37.1 102 18 132/88 (103) 98 05/09/17 18:41 Room Air 05/09/17 18:28 36.7 88 18 92 05/09/17 16:27 Room Air 05/09/17 15:37 36.7 88 18 150/86 (107) 92 Room Air 05/09/17 12:00 Room Air 05/09/17 11:30 37.0 87 20 142/84 (103) 93 Room Air 05/09/17 08:07 37.0 95 18 130/83 (99) 95 Room Air 05/09/17 08:00 Room Air Physical Exam General Appearance: WD/WN, no apparent distress, + obese Eyes: PERRL, EOMI, sclerae normal, + pertinent finding (Swelling of the left upper and lower eyelid, although patient states increased ability to open the eyes. Some crusting on lids) ENT: hearing grossly normal Neck: supple, no adenopathy Respiratory/Chest: lungs clear, normal breath sounds, no respiratory distress, no accessory muscle use Cardiovascular: regular rate, rhythm, no murmur Abdomen: normal bowel sounds, non tender, soft Extremities: normal inspection, no pedal edema, no calf tenderness Neurologic/Psychiatric: alert, normal mood/affect, oriented x 3 Skin: normal color, warm/dry, + pertinent finding (Erythema and of the left forhead, mild central fluctuation with tenderness to palpation ) Laboratory Results Results Past 24 Hours Test 05/09/17 16:30 05/09/17 21:25 05/10/17 06:18 05/10/17 08:19 Range/Units Bedside Glucose 119 110 70-99 mg/dl Vancomycin Level Trough 17.1 SEE COMMENT mcg/ml White Blood Count 14.45 4.8-10.8 K/uL Red Blood Count 4.05 4.7-6.1 M/uL Hemoglobin 11.7 14.0-18.0 g/dL Hematocrit 35.3 42-52 % Mean Corpuscular Volume 87.2 80-100 fL Mean Corpuscular Hemoglobin 28.9 25-34 pg Mean Corpuscular Hemoglobin Concent 33.1 32-36 g/dl RDW Standard Deviation 44.7 36.4-46.3 fL RDW Coefficient of Variation 14.0 11.5-14.5 % Platelet Count 423 130-400 K/uL Mean Platelet Volume 9.3 7.4-10.4 fL Sodium Level 138 136-145 mmol/L Potassium Level 3.1 3.5-5.1 mmol/L Chloride Level 105 98-107 mmol/L Carbon Dioxide Level 22 21-32 mmol/L Anion Gap 11.0 3-11 mmol/L Blood Urea Nitrogen 8 7-18 mg/dl Creatinine 0.83 0.60-1.40 mg/dl Est Creatinine Clear Calc Drug Dose 148.1 ml/min Estimated GFR () 124.9 Estimated GFR (Non- 107.8 BUN/Creatinine Ratio 9.7 10-20 Random Glucose 102 70-99 mg/dl Calcium Level 8.8 8.5-10.1 mg/dl Test 05/10/17 11:19 Range/Units Bedside Glucose 167 70-99 mg/dl Assessment and Plan 42-year-old male with past medical history of glioblastoma, diabetes, and MRSA with sepsis secondary to right facial cellulitis. Continue IV antibiotics at this time and continue to monitor for improvement. Facial cellulitis with sepsis present on admission, now resolved. Failed outpatient Augmentin so most likely resistant gram positives, vs less likely resistant gram neg. CT sinuses: Thickening over right ethmoid air cells and left maxillary sinus - Continue Vancomycin day 2. Zosyn discontinued - Plans to transition to PO MRSA coverage, unless patient worsens, then will resume gram negative coverage - Blood cultures show NGTD x 1 day - Continue Toradol 15mg q6h PRN for pain management - appropriate control with this - Trend CBC - WBC unchanged today Glioblastoma Oncologist Dr. Plummer. Patient wears [employer] scalp electrodes --> Possible contributor to erythema over scalp - Continue Keppra prophylaxis for seizures - Zofran PRN for nausea - Meclizine PRN for dizziness - Hydrocortisone increased from baseline 10mg daily to additional 10mg BID for 2 days with plans to resume baseline dose tomorrow Hypertension - Amlodipine 10mg daily - Lisinopril 10mg daily Hypokalemia - K+ 3.1 - KCl 20mEq BID x 1 day - Trend BMP Depression - Sertraline T2DM - SSI - Home Lantus 50 units HS GERD - Pantoprazole SIMBA - CPAP with 2L night time oxygen VTE PPx - Lovenox - SCD - TEDs Resident Physician Supervision Note: I interviewed and examined the patient. Discussed with Dr. Chin and agree with findings and plan as documented in the note. Any exceptions or clarifications are listed here: None Documented By: Brandon Arthur feeling better looking better no further fevers eye less swollen forehead less sore vitals noted nad breathing unlabored no pallor or icterus forehead area of erythema less red/hot/tender. questionable area of fluctuance remains. EOMI without pain, lids nontender and less swollen than yesterday facial cellulitis w sepsis - improving. likely MRSA - hold on zosyn and follow. discussed risks (unlikely but possible worsening which would be able to be quickly identified and treatment re-escalated) and benefits (narrower focus of treatment, less risk of antibiotic associated ADRs including Cdiff, high probability of gram positives given skin infection) - pt and agree. fluctuance ongoing vigilance, doubt abscess, but will need to be followed. since he's improving, slow to order repeat imaging in order to protect him from potential unnecessary procedures, but if fluctuance remains may need dedicated imaging of this area to definitively rule out abscess before being entirely off abx (CT sinuses seems to get close to thsi area but not necessarily clearly covering that area) Continued [facility] stay due to: multiple IV medications needed Discharge planning: home Resident Tracking Resident Involvement: Resident Care Provided Care Provided: Adult Hospital Medicine
[2017-05-10 07:23] VITALS: BP 146/78; PULSE 88; TEMP 36.9; O2SAT 92
[2017-05-10 07:25] LABS: CREATININE 0.83 mg/dl (0.60-1.40)
[2017-05-10 07:43] LABS: HEMATOCRIT 35.3 % (42-52); MEAN CELL VOLUME 87.2 fL (80-100); MEAN CORPUSCULAR HEMOGLOBIN 28.9 pg (25-34); MEAN CORPUSCULAR HGB CONC 33.1 g/dl (32-36); MEAN PLATELET VOLUME 9.3 fL (7.4-10.4); PLATELET COUNT 423 K/uL (130-400); RED BLOOD COUNT 4.05 M/uL (4.7-6.1); WHITE BLOOD COUNT 14.45 K/uL (4.8-10.8)
[2017-05-10 08:00] LABS: BUN/CREATININE RATIO 9.7 (10-20); CALCIUM 8.8 mg/dl (8.5-10.1); POTASSIUM 3.1 mmol/L (3.5-5.1)
[2017-05-10] MEDS: AMLODIPINE BESYLATE 5 MG TAB PO SCH (08:20)
[2017-05-10] MEDS: PANTOprazole SOD 40 MG TAB PO SCH (08:20)
[2017-05-10] MEDS: LISINOPRIL 10 MG TAB PO SCH (08:21)
[2017-05-10] MEDS: HYDROCORTISONE 10 MG TAB PO SCH ×3 (08:21→20:15)
[2017-05-10] MEDS: LEVETIRACETAM 500 MG TAB PO SCH ×2 (08:21→20:15)
[2017-05-10] MEDS: ENOXAPARIN 40 MG/0.4 ML SYR SC SCH (08:21)
[2017-05-10] MEDS: INSULIN ASPART 100 UNITS/ML 3 ML PEN SC SCH ×4 (09:14→20:57)
[2017-05-10] MEDS ORDERED: POTASSIUM CHLORIDE 20 MEQ TABCR PO ONE (09:29)
--- NOTE | 2017-05-10 10:15 | Pharmacy Progress Note ---
Pharmacy Abx Dose Short Note Date of Service May 10, 2017. Assessment & Plan Assessment 42 year old male receiving Vancomycin/Zosyn IV for treatment of facial cellulitis. Day # 3 of antimicrobial therapy. Plan Vancomycin * Trough level of 17.1 mcg/mL is therapeutic; however, given BMI >35, pt is at risk for drug accumulation. * Target trough actually should be 10-15 mcg/mL so a dose decrease even if pt doesn't accumulate is warranted. * Change to 1750 mg IV every 10 hours. * Goal trough level for cellulitis: 10 to 15 mcg/mL * A follow up level ordered for: 05/12/17 @[id number] Pharmacy will continue to follow and will adjust dose/frequency as necessary. Thank you.
[2017-05-10 15:08] VITALS: BP 124/84; PULSE 88; TEMP 36.9; O2SAT 95
[2017-05-10] MEDS: VANCOMYCIN INJ 1,750 MG in SODIUM CHLORIDE 0.9% 500ML 500 ML IV SCH (16:21)
[2017-05-10 19:48] VITALS: BP 115/76; PULSE 100; TEMP 36.3; O2SAT 96
[2017-05-10] MEDS: POTASSIUM CHLORIDE 20 MEQ TABCR PO SCH (20:13)
[2017-05-10] MEDS: SERTRALINE HCL 100 MG TAB PO SCH (20:14)
[2017-05-10] MEDS: INSULIN GLARGINE SOLOSTAR 100 UNITS/ML 3 ML PEN SQ SCH (20:57)
[2017-05-10 22:20] VITALS: BP 127/78; PULSE 97; TEMP 37.1; O2SAT 94
[2017-05-11] MEDS: VANCOMYCIN INJ 1,750 MG in SODIUM CHLORIDE 0.9% 500ML 500 ML IV SCH ×3 (02:30→22:18)
[2017-05-11 04:33] VITALS: BP 109/61; PULSE 86; TEMP 36.9; O2SAT 93
[2017-05-11] MEDS: KETOROLAC TROMETHAMINE 15 MG/ML VIAL IV. PRN ×3 (04:58→19:49)
[2017-05-11 07:21] VITALS: BP 126/82; PULSE 82; TEMP 37; O2SAT 93
[2017-05-11] MEDS: GUAIFENESIN/CODEINE 200MG/20MG 10ML UDC PO PRN ×2 (08:01→18:13)
[2017-05-11] MEDS: PANTOprazole SOD 40 MG TAB PO SCH (08:02)
[2017-05-11] MEDS: ACETAMINOPHEN 500 MG TAB PO PRN ×3 (08:02→22:31)
[2017-05-11] MEDS: LEVETIRACETAM 500 MG TAB PO SCH (08:03)
[2017-05-11] MEDS: LISINOPRIL 10 MG TAB PO SCH (08:03)
[2017-05-11] MEDS: POTASSIUM CHLORIDE 20 MEQ TABCR PO SCH ×2 (08:03→20:24)
[2017-05-11] MEDS: AMLODIPINE BESYLATE 5 MG TAB PO SCH (08:03)
[2017-05-11] MEDS: HYDROCORTISONE 10 MG TAB PO SCH (08:03)
[2017-05-11 08:19] LABS: HEMATOCRIT 33.6 % (42-52); MEAN CORPUSCULAR HEMOGLOBIN 28.8 pg (25-34); MEAN PLATELET VOLUME 9.2 fL (7.4-10.4); PLATELET COUNT 396 K/uL (130-400); RED BLOOD COUNT 3.86 M/uL (4.7-6.1)
[2017-05-11] MEDS: ENOXAPARIN 40 MG/0.4 ML SYR SC SCH (08:41)
[2017-05-11] MEDS: INSULIN ASPART 100 UNITS/ML 3 ML PEN SC SCH ×4 (08:41→20:33)
[2017-05-11 09:02] LABS: BUN/CREATININE RATIO 13.7 (10-20); CALCIUM 8.6 mg/dl (8.5-10.1); CREATININE 0.68 mg/dl (0.60-1.40); POTASSIUM 3.2 mmol/L (3.5-5.1)
[2017-05-11] MEDS ORDERED: POTASSIUM CHLORIDE 20 MEQ TABCR PO ONE (09:15)
--- NOTE | 2017-05-11 10:23 | Family Medicine Progress Note ---
Progress Note Date of Service May 11, 2017. Subjective Pt evaluation today including: conversation w/ patient, conversation w/ family , physical exam, chart review, lab review, review of studies, conversation w/ payroll consultant, review of inpatient medication list Patient continuing to feel better today. He feels that his facial cellulitis is improving although his right eyelid is more swollen. Patient attributes this to sleeping on his right side. The redness has improved and the tenderness has localized to the left forehead. He is not having fevers or diaphoresis. He denies any headaches, sinus tenderness, ear pain or ocular symptoms including changes in vision, pain with EOM. He does still have drainage out of the eye and morning crusting. Otherwise he denies CP, SOB, abdo pain. He is tolerating diet without N/V. He is voiding and stooling without issues. Management plans discussed and patient's and 's questions were answered to their satisfaction ROS unremarkable except as noted above. Objective Vital Signs Date Time Temp Pulse Resp B/P (MAP) Pulse Ox O2 Delivery O2 Flow Rate FiO2 05/11/17 09:00 Room Air 05/11/17 07:21 37.0 82 18 126/82 (97) 93 Room Air 05/11/17 04:33 36.9 86 18 109/61 (77) 93 Room Air 05/11/17 00:00 Room Air 05/10/17 22:20 37.1 97 16 127/78 (94) 94 Room Air 05/10/17 20:00 Room Air 05/10/17 19:48 36.3 100 18 115/76 (89) 96 Room Air 05/10/17 16:00 Room Air 05/10/17 15:08 36.9 88 18 124/84 (97) 95 Room Air Physical Exam General Appearance: WD/WN, no apparent distress, + obese Eyes: PERRL, EOMI, sclerae normal, + pertinent finding (Significant right eyelid swelling- worse than yesterday. non tender) ENT: hearing grossly normal Neck: supple, no adenopathy, no JVD Respiratory/Chest: lungs clear, normal breath sounds, no respiratory distress Cardiovascular: regular rate, rhythm, no murmur Abdomen: normal bowel sounds, non tender, soft Extremities: normal inspection, no pedal edema, no calf tenderness Neurologic/Psychiatric: alert, normal mood/affect, oriented x 3 Skin: + pertinent finding (Erythema and of the left forhead, increased central fluctuation compared to yesterday, with tenderness to palpation) Laboratory Results Results Past 24 Hours Test 05/10/17 16:36 05/10/17 20:29 05/11/17 07:36 05/11/17 07:52 Range/Units Bedside Glucose 135 167 89 70-99 mg/dl White Blood Count 11.50 4.8-10.8 K/uL Red Blood Count 3.86 4.7-6.1 M/uL Hemoglobin 11.1 14.0-18.0 g/dL Hematocrit 33.6 42-52 % Mean Corpuscular Volume 87.0 80-100 fL Mean Corpuscular Hemoglobin 28.8 25-34 pg Mean Corpuscular Hemoglobin Concent 33.0 32-36 g/dl RDW Standard Deviation 44.8 36.4-46.3 fL RDW Coefficient of Variation 14.1 11.5-14.5 % Platelet Count 396 130-400 K/uL Mean Platelet Volume 9.2 7.4-10.4 fL Sodium Level 140 136-145 mmol/L Potassium Level 3.2 3.5-5.1 mmol/L Chloride Level 105 98-107 mmol/L Carbon Dioxide Level 24 21-32 mmol/L Anion Gap 10.0 3-11 mmol/L Blood Urea Nitrogen 9 7-18 mg/dl Creatinine 0.68 0.60-1.40 mg/dl Est Creatinine Clear Calc Drug Dose 180.9 ml/min Estimated GFR () 135.6 Estimated GFR (Non- 117.0 BUN/Creatinine Ratio 13.7 10-20 Random Glucose 85 70-99 mg/dl Calcium Level 8.6 8.5-10.1 mg/dl Test 05/11/17 11:57 Range/Units Bedside Glucose 119 70-99 mg/dl Assessment and Plan 42-year-old male with past medical history of glioblastoma, diabetes, and MRSA with sepsis secondary to right facial cellulitis. Continue IV antibiotics at this time and continue to monitor for improvement. Facial cellulitis with sepsis present on admission, now resolved. Failed outpatient Augmentin so most likely resistant gram positives, vs less likely resistant gram neg. CT sinuses: Thickening over right ethmoid air cells and left maxillary sinus. Zosyn continued as less likely to be gram negatives, and thus far he shows ongoing improvement, although keeping low threshold to restart should he show any worsening - Continue Vancomycin day 3 (plans to transition to PO MRSA coverage ( doxycycline) on discharge) - Blood cultures show NGTD x [address] head (05/21) shows: 5.5 x 1.5 cm collection in the right scalp overlying the craniotomy, which may represent seroma, hematoma, pseudomeningocele, or abscess. - Plastic surgery consulted to consider aspiration with possible need for I &D - CT head (05/21) shows: increasing intracranial edema within the right frontal region as well as increasing complex extra-axial material along the right frontal craniotomy site, measured up to 1.5 cm in thickness. May represent hemorrhage or postoperative change subdural infection/abscess is not excluded. - The patient does not show any clinical evidence of neurological deficit. It is likely that these changes are secondary to the electrode stimulation for brain tumour, and less likely to be an infectious collection. Will need to get in contact with patient's neuro-oncologist, Dr. Tomasa Mcdonald from [facility] tomorrow (patient's to bring in contact details, if possible) to discuss these changes further, and determine management if the tissue changes are unexpected for current therapy, and further management plans that may be warranted - Continue Toradol 15mg q6h PRN for pain management - appropriate control with this - Trend CBC - WBC improved today Glioblastoma Oncologist Dr. Plummer. Patient wears [employer] scalp electrodes --> Possible contributor to erythema over scalp - Continue Keppra prophylaxis for seizures - Zofran PRN for nausea - Meclizine PRN for dizziness - Hydrocortisone resumed to baseline 10mg daily Hypertension - Amlodipine 10mg daily - Lisinopril 10mg daily Hypokalemia - K+ 3.2 - KCl 20mEq BID x 3 days - Trend BMP Depression - Sertraline T2DM - SSI - Home Lantus 50 units HS GERD - Pantoprazole SIMBA - CPAP with 2L night time oxygen VTE PPx - Lovenox - SCD - TEDs Resident Physician Supervision Note: I interviewed and examined the patient. Discussed with Dr. Chin and agree with findings and plan as documented in the note. Any exceptions or clarifications are listed here: None Documented By: Brandon Arthur feeling better but area on forehead still sore, seems puffy eyes doing OK more swollen but relates to how he was laying vitals noted nad breathing unlabored. eyelids not at all tender, not warm, EOMI. forehead area pin machine tender w fluctuance. AAOx3, pleasant, conversational , mentally intact and appropriate. absolutely no new neuro deficits forehead cellulitis w sepsis and concern on abscess vs seroma -due to his electrode device which treats his cancer having to be placed in exactly the area of concern, lower threshold to eval for abscess --> CT done -- > fluid collection. uncertain if it is abscess, but his ongoing treatments will be on hold until this resolves --> consult plastics for further evaluation -in regards to the intracranial findings, he shows absolutely no s/s of [employer] infection/etc --> suspect this relates to cancer, treatment, and post op changes. will definitely want films reviewed by his primary team - as above to contact his oncologist tomorrow Continued [facility] stay due to: multiple IV medications needed Discharge planning: home Resident Tracking Resident Involvement: Resident Care Provided Care Provided: Adult Hospital Medicine
--- NOTE | 2017-05-11 12:10 | DIAGNOSTIC IMAGING REPORT ---
CT SCAN OF THE BRAIN WITHOUT IV CONTRAST CLINICAL HISTORY: Facial cellulitis. COMPARISON STUDY: CT of the brain dated 01/04/2017. MRI of the brain dated 12/26/2016. TECHNIQUE: Unenhanced axial CT scan of the brain is performed from the vertex to the skull base. CT DOSE: 614.27 mGy.cm FINDINGS: Brain parenchyma: Right frontal encephalomalacia is consistent with previous surgical resection. A hyperdense mass lesion is again suggested in the right frontal region. This measures approximately 4 x 3.2 cm as seen on image #22. Foci of calcification this region are similar to previous. There is increasing extra-axial density along the right frontal convexity as compared to previous. This is heterogeneous and measures up to 1.5 cm. There is also increasing edema in the right frontal region as compared to 01/04/2017. There is mild effacement of the frontal horn of the right lateral ventricle. There is also effacement of the right frontal sulci. No midline shift is identified. There is no parenchymal hematoma or evidence of acute territorial ischemia by CT criteria. Ventricles, sulci, cisterns: See above. Intracranial vasculature: Visualized intracranial vessels at the skull base are normal in appearance. Calvarium: There are postoperative changes from bifrontal and right parietal craniotomy. No destructive calvarial lesion is seen. Soft tissues: There is significant soft tissue edema identified involving the right frontotemporoparietal scalp. A low-attenuation fluid collection is suggested in the right frontoparietal scalp on image #21 measuring approximately 5.5 x 1.5 cm. Sinuses and mastoids: The visualized paranasal sinuses are clear. The mastoid air cells are well pneumatized. Orbits: There is right periorbital soft tissue edema. The bony orbits are grossly intact. Orbital contents are normal as imaged. IMPRESSION: 1. Again seen are postoperative changes from craniotomy and right frontal resection as above. 2. There is extensive right frontotemporoparietal scalp edema, likely representing cellulitis. Periorbital soft tissue edema is noted. 3. There is the suggestion of a 5.5 x 1.5 cm low-attenuation collection in the right scalp overlying the craniotomy. This is nonspecific and may represent seroma, hematoma, pseudomeningocele, or abscess. Clinical correlation will be essential. 4. There is increasing intracranial edema within the right frontal region as well as increasing complex extra-axial material along the right frontal craniotomy site as compared to 01/04/2017. This measures up to 1.5 cm in thickness. This is nonspecific, although this may represent hemorrhage or postoperative change subdural infection/abscess is not excluded. Clinical correlation will be required and neurosurgical assessment is recommended. 5. Residual hyperdense mass lesion is again suggested in the right frontal region. This is similar in appearance to 01/04/2017. Electronically signed by: Junaid Allen M.D. 05/11/2017 12:08 PM Dictated Date/Time: 05/11/2017 11:56 AM
[2017-05-11 15:44] VITALS: BP 106/60; PULSE 89; TEMP 36.7; O2SAT 94
[2017-05-11 19:44] VITALS: BP 96/58; PULSE 85; TEMP 36.8; O2SAT 93
[2017-05-11] MEDS: SERTRALINE HCL 100 MG TAB PO SCH (20:27)
[2017-05-11] MEDS: INSULIN GLARGINE SOLOSTAR 100 UNITS/ML 3 ML PEN SQ SCH (20:32)
[2017-05-11] MEDS ORDERED: LEVETIRACETAM 250 MG TAB PO SCH (21:00)
[2017-05-12] VITALS (7 sets, daily range): BP systolic 111–140; BP diastolic 67–91; PULSE 82–89; TEMP 36.8–37.1; O2SAT 92–97
[2017-05-12] MEDS: GUAIFENESIN/CODEINE 200MG/20MG 10ML UDC PO PRN ×4 (00:03→22:11)
[2017-05-12] MEDS: KETOROLAC TROMETHAMINE 15 MG/ML VIAL IV. PRN ×4 (02:59→22:11)
[2017-05-12] MEDS ORDERED: VANCOMYCIN TROUGH SCH (07:30)
[2017-05-12] MEDS ORDERED: LEVETIRACETAM 250 MG TAB PO SCH (08:00)
[2017-05-12] MEDS: POTASSIUM CHLORIDE 20 MEQ TABCR PO SCH ×2 (08:22→19:34)
[2017-05-12] MEDS: VANCOMYCIN INJ 1,750 MG in SODIUM CHLORIDE 0.9% 500ML 500 ML IV SCH ×2 (08:22→17:43)
[2017-05-12] MEDS: PANTOprazole SOD 40 MG TAB PO SCH (08:22)
[2017-05-12] MEDS: AMLODIPINE BESYLATE 5 MG TAB PO SCH (08:23)
[2017-05-12] MEDS: HYDROCORTISONE 10 MG TAB PO SCH (08:23)
[2017-05-12] MEDS: LISINOPRIL 10 MG TAB PO SCH (08:23)
[2017-05-12] MEDS: INSULIN ASPART 100 UNITS/ML 3 ML PEN SC SCH ×4 (08:32→21:00)
[2017-05-12 08:35] LABS: BASO % 0.1 %; BASO ABS # 0.01 K/uL (0-0.2); COMPLETE YES; EOS % 3.2 %; HEMATOCRIT 34.8 % (42-52); IG% 0.5 %; LYMPH ABS # 1.51 K/uL (1.2-3.4); MEAN CELL VOLUME 86.6 fL (80-100); MEAN CORPUSCULAR HEMOGLOBIN 29.1 pg (25-34); MEAN CORPUSCULAR HGB CONC 33.6 g/dl (32-36); MEAN PLATELET VOLUME 9.1 fL (7.4-10.4); MONO % 9.7 %; NEUT % 72.5 %; PLATELET COUNT 422 K/uL (130-400); RED BLOOD COUNT 4.02 M/uL (4.7-6.1); WHITE BLOOD COUNT 10.79 K/uL (4.8-10.8)
[2017-05-12 09:14] LABS: BUN/CREATININE RATIO 11.8 (10-20); CREATININE 0.74 mg/dl (0.60-1.40); POTASSIUM 3.4 mmol/L (3.5-5.1)
--- NOTE | 2017-05-12 09:30 | Pharmacy Progress Note ---
Pharmacy Abx Dose Short Note Date of Service May 12, 2017. Assessment & Plan Assessment 42 year old male receiving Vancomycin for treatment of cellulitis. Day # 5 of antimicrobial therapy. Item Value Date Time Vancomycin Level Trough 11.8 mcg/ml 05/12/17 0802 Trough level of 11.8 mcg/ml is therapeutic for goal range of 10-15 mcg/mL for cellulitis indication. Consider ordering another trough level in 48 hours if vanco is continued as drug is expected to accumulate given the pt's obesity. Anticipate switch to oral doxycycline upon discharge. Blood cultures from 05/08 currently have NGTD. Renal function continue to be stable based on Scr. WBC trending down. Plan Vancomycin * Continue dose of 1750 mg IV every 10 hours * Order trough level in 48 hours if vanc continued. Pharmacy will continue to follow and will adjust dose/frequency as necessary. Thank you.
[2017-05-12] MEDS: ENOXAPARIN 40 MG/0.4 ML SYR SC SCH (09:49)
--- NOTE | 2017-05-12 09:52 | Pre-Operative Consultation ---
History General Date of Service: May 12, 2017. HPI HPI: The patient is a 42 year old male being seen in consultation of right forehead swelling. He has history of a glioblastoma that was excised at [facility] in August. He developed MRSA in his incision leading to opening the incision, irrigation the wound in September. He notes for the past week he has had facial swelling, purulent rhinorrhea. 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 He notes this helped his eye swelling and rhinorrhea, but he is now concerned with area on his right forehead that is swollen and painful. He feels it is looking more localized and increasing in tenderness. He was seen in our ED and had CT with results noted below: IMPRESSION: 1. Again seen are postoperative changes from craniotomy and right frontal resection as above. 2. There is extensive right frontotemporoparietal scalp edema, likely representing cellulitis. Periorbital soft tissue edema is noted. 3. There is the suggestion of a 5.5 x 1.5 cm low-attenuation collection in the right scalp overlying the craniotomy. This is nonspecific and may represent seroma, hematoma, pseudomeningocele, or abscess. Clinical correlation will be essential. 4. There is increasing intracranial edema within the right frontal region as well as increasing complex extra-axial material along the right frontal craniotomy site as compared to 01/04/2017. This measures up to 1.5 cm in thickness. This is nonspecific, although this may represent hemorrhage or postoperative change subdural infection/abscess is not excluded. Clinical correlation will be required and neurosurgical assessment is recommended. 5. Residual hyperdense mass lesion is again suggested in the right frontal region. This is similar in appearance to 01/04/2017. Historian: patient Risk Assessment Daily beta issa use?: No Problem List Medical Problems: (1) Facial cellulitis Status: Acute (2) Lower abdominal pain Status: Acute (3) Post op infection Status: Acute (4) Scalp lump Status: Acute (5) Seizure Status: Acute (6) Sinusitis Status: Acute Medical & Surgical History Past Medical History: PMH Type 2 diabetes Hypertension Depression GERD Obstructive sleep apnea PSH Status post craniotomy 2 Social History Hx Tobacco Use In Past Year?: No Smoking Status: Never Smoker Alcohol: none Drug Use: none Marital status: Housing status: lives with family Occupation status: unemployed Immunizations Have You Had Influenza Vaccine: Unknown Have You Had Tetanus Vaccine: Unknown History of Pneumococcal: Unknown History Hepatitis B Vaccine: Unknown Allergies Allergies: Coded Allergies: No Known Allergies (Unverified , 05/08/17) Medications Current Inpatient Medications Current Inpatient Medications Medications (Trade) Dose Ordered Sig/Marianne Route Start Time Stop Time Status Last Admin Dose Admin Enoxaparin Sodium (Lovenox Inj) 40 mg Q24H SC 05/09/17 09:00 06/08/17 08:59 05/11/17 08:41 40 MG Al Hydrox/Mg Hydrox/Simethicone (Maalox Max Susp) 15 ml Q4H PRN PO 05/08/17 23:30 06/07/17 23:29 Magnesium Hydroxide (Milk Of Magnesia Susp) 30 ml Q12H PRN PO 05/08/17 23:30 06/07/17 23:29 Ondansetron HCl (Zofran Inj) 4 mg Q6H PRN IV 05/08/17 23:30 06/07/17 23:29 Polyethylene (Miralax Powder Packet) 17 gm DAILY PRN PO 05/08/17 23:30 06/07/17 23:29 Insulin Aspart (novoLOG ASPART) SLIDING SCALE G... ACHS SC 05/09/17 07:00 06/08/17 06:59 05/11/17 13:17 4 UNITS Glucose (Glucose 40% Gel) 15-30 GRAMS 15 GRAMS... UD PRN PO 05/08/17 23:45 06/07/17 23:44 Glucose (Glucose Chew Tab) 4-8 Tablets 4 Tabl... UD PRN PO 05/08/17 23:45 06/07/17 23:44 Dextrose (Dextrose 50% 50ML Syringe) 25-50ML OF 50% DW IV FOR... UD PRN IV 05/08/17 23:45 06/07/17 23:44 Glucagon (Glucagon Inj) 1 mg UD PRN SQ 05/08/17 23:45 06/07/17 23:44 Acetaminophen (Tylenol Tab) 1,000 mg Q6H PRN PO 05/08/17 23:45 06/07/17 23:44 05/11/17 22:31 1,000 MG Amlodipine Besylate (Norvasc Tab) 10 mg DAILY PO 05/09/17 09:00 06/08/17 08:59 05/12/17 08:23 10 MG Insulin Glargine (Lantus Solostar Pen) 50 units HS SQ 05/09/17 21:00 06/08/17 20:59 05/11/17 20:32 50 UNITS Lisinopril (Zestril Tab) 10 mg DAILY PO 05/09/17 09:00 06/08/17 08:59 05/12/17 08:23 10 MG Meclizine HCl (Antivert Tab) 25 mg DAILY PRN PO 05/08/17 23:45 06/07/17 23:44 Ondansetron HCl (Zofran Tab) 8 mg Q8 PRN PO 05/08/17 23:45 06/07/17 23:44 Pantoprazole Sodium (Protonix Tab) 40 mg DAILY PO 05/09/17 09:00 06/08/17 08:59 05/12/17 08:22 40 MG Sertraline HCl (Zoloft Tab) 100 mg HS PO 05/09/17 21:00 06/08/17 20:59 05/11/17 20:27 100 MG Vancomycin HCl (Consult) 1 ea UD PRN N/A 05/09/17 01:00 06/08/17 00:59 Hydrocortisone (Cortef Tab) 10 mg QAM PO 05/10/17 08:00 06/09/17 08:59 05/12/17 08:23 10 MG Codeine Phosphate/ Guaifenesin (Robitussin-AC Sugar Free Syrup) 10 ml Q6H PRN PO 05/09/17 09:45 06/08/17 09:44 05/12/17 08:22 10 ML Ketorolac Tromethamine (Toradol Inj) 15 mg Q6 PRN IV. 05/09/17 14:00 05/14/17 13:59 05/12/17 08:31 15 MG Vancomycin HCl 1750 mg/Sodium Chloride 535 ml @ 200 mls/hr Q10H IV 05/10/17 16:00 05/17/17 23:59 05/12/17 08:22 200 MLS/HR Potassium Chloride (Klor-Con Tab) 20 meq BID PO 05/11/17 20:00 05/14/17 19:59 05/12/17 08:22 20 MEQ Levetiracetam (Keppra Tab) 1,000 mg QAM PO 05/12/17 08:00 06/11/17 07:59 05/12/17 08:23 1,000 MG Levetiracetam (Keppra Tab) 1,500 mg QPM PO 05/11/17 21:00 06/10/17 20:59 05/11/17 20:26 1,500 MG Review of Systems Review of Systems Constitutional: denies chills, denies fever Integumentary: see HPI, change in color Physical Exam Physical Exam General Appearance: + WD/WN, No distress Skin Characteristics: + abnormal color, + other (localized area right temporal forehead with edema, erythema, tenderness. facial edema noted) Diagnostics Labs Labs Results Past 24 Hours Test 05/11/17 11:57 05/11/17 16:52 05/11/17 20:03 05/12/17 07:53 Range/Units Bedside Glucose 119 123 135 78 70-99 mg/dl Test 05/12/17 08:02 Range/Units White Blood Count 10.79 4.8-10.8 K/uL Red Blood Count 4.02 4.7-6.1 M/uL Hemoglobin 11.7 14.0-18.0 g/dL Hematocrit 34.8 42-52 % Mean Corpuscular Volume 86.6 80-100 fL Mean Corpuscular Hemoglobin 29.1 25-34 pg Mean Corpuscular Hemoglobin Concent 33.6 32-36 g/dl Platelet Count 422 130-400 K/uL Mean Platelet Volume 9.1 7.4-10.4 fL Neutrophils (%) (Auto) 72.5 % Lymphocytes (%) (Auto) 14.0 % Monocytes (%) (Auto) 9.7 % Eosinophils (%) (Auto) 3.2 % Basophils (%) (Auto) 0.1 % Neutrophils # (Auto) 7.82 1.4-6.5 K/uL Lymphocytes # (Auto) 1.51 1.2-3.4 K/uL Monocytes # (Auto) 1.05 0.11-0.59 K/uL Eosinophils # (Auto) 0.35 0-0.5 K/uL Basophils # (Auto) 0.01 0-0.2 K/uL RDW Standard Deviation 44.9 36.4-46.3 fL RDW Coefficient of Variation 14.1 11.5-14.5 % Immature Granulocyte % (Auto) 0.5 % Immature Granulocyte # (Auto) 0.05 0.00-0.02 K/uL Sodium Level 140 136-145 mmol/L Potassium Level 3.4 3.5-5.1 mmol/L Chloride Level 105 98-107 mmol/L Carbon Dioxide Level 24 21-32 mmol/L Anion Gap 11.0 3-11 mmol/L Blood Urea Nitrogen 9 7-18 mg/dl Creatinine 0.74 0.60-1.40 mg/dl Est Creatinine Clear Calc Drug Dose 165.5 ml/min Estimated GFR () 130.9 Estimated GFR (Non- 113.0 BUN/Creatinine Ratio 11.8 10-20 Random Glucose 73 70-99 mg/dl Calcium Level 9.0 8.5-10.1 mg/dl Vancomycin Level Trough 11.8 SEE COMMENT mcg/ml Lab Interpretation Lab Interpretation: labs were reviewed Diagnostic Radiology Diagnostic Radiology CT Head 05/11 IMPRESSION: 1. Again seen are postoperative changes from craniotomy and right frontal resection as above. 2. There is extensive right frontotemporoparietal scalp edema, likely representing cellulitis. Periorbital soft tissue edema is noted. 3. There is the suggestion of a 5.5 x 1.5 cm low-attenuation collection in the right scalp overlying the craniotomy. This is nonspecific and may represent seroma, hematoma, pseudomeningocele, or abscess. Clinical correlation will be essential. 4. There is increasing intracranial edema within the right frontal region as well as increasing complex extra-axial material along the right frontal craniotomy site as compared to 01/04/2017. This measures up to 1.5 cm in thickness. This is nonspecific, although this may represent hemorrhage or postoperative change subdural infection/abscess is not excluded. Clinical correlation will be required and neurosurgical assessment is recommended. 5. Residual hyperdense mass lesion is again suggested in the right frontal region. This is similar in appearance to 01/04/2017. Impression Assessment and Plan Assessment and Plan Right Forehead Induration and erythema. CT findings inconclusive. Possible hematoma vs seroma vs abscess vs pseudomeningocele. This was reviewed with radiology. Unable to rule out pseudomeningocele. Would recommend transfer to hospital with neurosurgery. Recommendation was discussed with hospitalist. Patient was seen and examined by Dr. Bill, and she has recommended treatment plan.
[2017-05-12] MEDS ORDERED: POTASSIUM CHLORIDE 20 MEQ TABCR PO ONE (15:15)
--- NOTE | 2017-05-12 16:49 | DIAGNOSTIC IMAGING REPORT ---
MRI OF THE BRAIN WITHOUT CONTRAST CLINICAL HISTORY: History of glioblastoma status post chemotherapy and surgery. Possible abscess. COMPARISON STUDY: Head CT dated 05/11/2017, MRI the brain dated 01/07/2017. FINDINGS: Sagittal T1, axial diffusion, proton density and T2 weighted axial, coronal FLAIR, and axial T1-weighted images were acquired. There are postsurgical changes of a right frontal craniotomy. There is a suspected residual right frontal mass with associated edema. This edema/mass extends across the corpus callosum. Axial diffusion-weighted images reveal no evidence of acute or subacute infarction. There is no hydrocephalus. There is mild mass effect on the lateral ventricles. There is a small right frontal extra-axial collection measuring 1 cm. There is a 70 x 19 x 63 mm collection within the right frontal scalp. On coronal FLAIR images, this appears to communicate with the extra-axial fluid collection. The collection is nonspecific and could represent an abscess, hematoma, or postsurgical seroma. Clinical correlation will be necessary. There are no abnormal flow voids. IMPRESSION: 1. 70 x 19 x 63 mm right frontal scalp collection which appears to communicate with a right frontal extra-axial collection. Diagnostic considerations include abscess, hematoma, or postsurgical seroma. Neurosurgical consultation is recommended. 2. Postsurgical changes of a right frontal craniotomy and tumor resection. Suspected residual right frontal mass with associated edema which extends across the corpus callosum. Electronically signed by: Don Gonzalez M.D. 05/12/2017 4:47 PM Dictated Date/Time: 05/12/2017 4:36 PM
--- NOTE | 2017-05-12 18:48 | Family Medicine Progress Note ---
Progress Note Date of Service May 12, 2017. Subjective Pt evaluation today including: conversation w/ patient, physical exam, chart review, lab review The patient was seen and examined at bedside. Patient continues to have an abscess on his right forehead. He states that the pain is similar to where it was yesterday - in fact it might be more localized. He states that his eye swelling has improved. was in the room in the AM. Eating and urinating well. Plan of care was described to the patient and all questions were answered. Constitutional: No fever, No chills, No sweats ENT: No hearing loss Respiratory: No cough, No sputum, No wheezing, No shortness of breath, No dyspnea on exertion Cardiovascular: No chest pain Abdomen: No pain, No nausea, No vomiting, No diarrhea, No constipation Neurologic: No memory loss, No weakness, No numbness/tingling Psychiatric: No depression symptoms Objective Physical Exam General Appearance: WD/WN, no apparent distress Eyes: normal inspection, PERRL, EOMI ENT: hearing grossly normal, pharynx normal, + pertinent finding (tender right sided lymph nodes, anterior cervical chain. 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 the surrounding area outside the borders is non tender. Large well healing post surgical craniotomy scar on posterior head. ) Assessment and Plan 42M with past medical history of glioblastoma s/p bifrontal and right parietal craniotomy, DM 2 and MRSA with sepsis secondary to a painful right forehead abscess. CT and MRI of the head showed a [id number] right frontal scalp collection which appears to communicate with a right frontal extra-axial collection. Patient completed a course of Augmentin prior to admission and received 2 days of Vanc and Zosyn which was narrowed to just Vancomycin. Our plastic surgeon was consulted and together with radiology recommended that an I& D of the forehead abscess be done with neurosurgery backup. The patient was transferred to [facility] (spoke with Dr. Roman in Neurosurgery and Dr. Perez in Med Surg) who both OK'd the transfer. Facial cellulitis (septic on admission, now resolved) Failed outpatient Augmentin so most likely resistant gram positives, vs less likely resistant gram neg. CT sinuses: Thickening over right ethmoid air cells and left maxillary sinus. Zosyn continued as less likely to be gram negatives, and thus far he shows ongoing improvement, although keeping low threshold to restart should he show any worsening - Continue Vancomycin day 4 (plans to transition to PO MRSA coverage ( doxycycline) on discharge) - Blood cultures show No growth. Glioblastoma Multiforme s/p Chemo,Radiation and Surgery - NO NEURO deficits. - Patient has had his treatment at [facility] and follows up with them every 2 months after successful treatment. - Patient also follows up with his oncologist in [place], Dr. Guevara. - Patient wears [employer] scalp electrodes --> Possible contributor to erythema over scalp and source of abscess. - Continue Keppra prophylaxis for seizures - Zofran PRN for nausea - Meclizine PRN for dizziness - Hydrocortisone resumed to baseline 10mg daily Hypertension - Amlodipine 10mg daily - Lisinopril 10mg daily Hypokalemia - K+ 3.2 - KCl 20mEq BID x 3 days - Trend BMP Depression - Sertraline T2DM - SSI - Home Lantus 50 units HS GERD - Pantoprazole SIMBA - CPAP with 2L night time oxygen VTE PPx - Lovenox - SCD - TEDs Resident Physician Supervision Note: I was present with the resident physician during the history and exam. I discussed the case with the resident and agree with the findings and plan as documented in the note. Please see discharge note of the same date for additional. Documented By: Adiel Jackson Resident Involvement: Resident Care Provided Care Provided: Adult Hospital Medicine
[2017-05-12] MEDS ORDERED: HYD10 PO ×2 (19:19→19:51)
--- NOTE | 2017-05-12 19:28 | Discharge Instructions ---
Discharge Instructions Date of Service May 12, 2017. Admission Reason for Admission: Facial Cellulitis, Glioblastoma Discharge Discharge Diagnosis / Problem: Facial Cellulitis / Glioblastoma Discharge Goals Goal(s): Decrease discomfort, Improve function, Improve disease control Activity Recommendations Activity Limitations: per Instructions/Follow-up section . Instructions / Follow-Up Instructions / Follow-Up You are being transferred to [facility] for surgical management of your facial abscess. This surgical intervention should be done with neurosurgical input. Unfortunately [facility] does not have any neurosurgical specialists. You are stable at the time of transfer and all of your records will be sent to [place]. At the time of transfer you are on an Antibiotic called Vancomycin for the abscess. Your vital signs are stable (normal) and your white blood cell count is normal. At [place] you should expect to be put on antibiotics as well. Your blood cultures in [facility] were also negative. You should follow up with your regular Oncologist Appointments with Dr. Tomasa Mcdonald at [facility] and with Dr. Plummer in [place]. Current Hospital Diet Patient's current hospital diet: AHA Diet (Heart Healthy), Diabetes Type 2 Diet Discharge Diet Recommended Diet: Diabetes Type 2 Diet Pending Studies Studies pending at discharge: no Laboratory Results Hemoglobin A1c Test 03/17/17 09:45 Range/Units Estimated Average Glucose 160 mg/dl Hemoglobin A1c 7.2 H 4.5-5.6 % Lipid Panel Test 03/17/17 09:45 Range/Units Triglycerides Level 125 0-150 mg/dl Cholesterol Level 199 0-200 mg/dl HDL Cholesterol 40 mg/dl Cholesterol/HDL Ratio 5.0 LDL Cholesterol, Calculated 134 mg/dl Medical Emergencies . Who to Call and When: Medical Emergencies: If at any time you feel your situation is an emergency, please call 911 immediately. . Non-Emergent Contact Non-Emergency issues call your: Primary Care Provider, Oncologist . . "Provider Documentation" section prepared by Gregg Bustos. . VTE Core Measure Inpt VTE Proph given/why not?: Enoxaparin (Lovenox)SQ, SCD's Resident Involvement: Resident Care Provided Care Provided: Adult Hospital Medicine
[2017-05-12] MEDS: ACETAMINOPHEN 500 MG TAB PO PRN (19:34)
[2017-05-12] MEDS: SERTRALINE HCL 100 MG TAB PO SCH (19:35)
[2017-05-12] MEDS ORDERED: VANC1INJ9 IV. (19:40)
[2017-05-12] MEDS ORDERED: VANC1INJ94 IV ×2 (19:43→19:44)
--- NOTE | 2017-05-12 19:47 | Discharge Summary ---
Discharge Summary Date of Service May 12, 2017. Discharge Summary Admission Date: May 08, 2017 at 23:23 Discharge Date: May 12, 2017 Discharge Disposition: Acute care facility ([place]) Principal Diagnosis: Facial Cellulitis Immunizations: Have You Had Influenza Vaccine: Unknown History of Tetanus Vaccine?: Unknown History of Pneumococcal: Unknown History of Hepatitis B Vaccine: Unknown Procedures: MRI OF THE BRAIN WITHOUT CONTRAST CLINICAL HISTORY: History of glioblastoma status post chemotherapy and surgery. Possible abscess. COMPARISON STUDY: Head CT dated 05/11/2017, MRI the brain dated 01/07/2017. FINDINGS: Sagittal T1, axial diffusion, proton density and T2 weighted axial, coronal FLAIR, and axial T1-weighted images were acquired. There are postsurgical changes of a right frontal craniotomy. There is a suspected residual right frontal mass with associated edema. This edema/mass extends across the corpus callosum. Axial diffusion-weighted images reveal no evidence of acute or subacute infarction. There is no hydrocephalus. There is mild mass effect on the lateral ventricles. There is a small right frontal extra-axial collection measuring 1 cm. There is a 70 x 19 x 63 mm collection within the right frontal scalp. On coronal FLAIR images, this appears to communicate with the extra-axial fluid collection. The collection is nonspecific and could represent an abscess, hematoma, or postsurgical seroma. Clinical correlation will be necessary. There are no abnormal flow voids. IMPRESSION: 1. 70 x 19 x 63 mm right frontal scalp collection which appears to communicate with a right frontal extra-axial collection. Diagnostic considerations include abscess, hematoma, or postsurgical seroma. Neurosurgical consultation is recommended. 2. Postsurgical changes of a right frontal craniotomy and tumor resection. Suspected residual right frontal mass with associated edema which extends across the corpus callosum. CT SCAN OF THE BRAIN WITHOUT IV CONTRAST CLINICAL HISTORY: Facial cellulitis. COMPARISON STUDY: CT of the brain dated 01/04/2017. MRI of the brain dated 12/26/2016. TECHNIQUE: Unenhanced axial CT scan of the brain is performed from the vertex to the skull base. CT DOSE: 614.27 mGy.cm FINDINGS: Brain parenchyma: Right frontal encephalomalacia is consistent with previous surgical resection. A hyperdense mass lesion is again suggested in the right frontal region. This measures approximately 4 x 3.2 cm as seen on image #22. Foci of calcification this region are similar to previous. There is increasing extra-axial density along the right frontal convexity as compared to previous. This is heterogeneous and measures up to 1.5 cm. There is also increasing edema in the right frontal region as compared to 01/04/2017. There is mild effacement of the frontal horn of the right lateral ventricle. There is also effacement of the right frontal sulci. No midline shift is identified. There is no parenchymal hematoma or evidence of acute territorial ischemia by CT criteria. Ventricles, sulci, cisterns: See above. Intracranial vasculature: Visualized intracranial vessels at the skull base are normal in appearance. Calvarium: There are postoperative changes from bifrontal and right parietal craniotomy. No destructive calvarial lesion is seen. Soft tissues: There is significant soft tissue edema identified involving the right frontotemporoparietal scalp. A low-attenuation fluid collection is suggested in the right frontoparietal scalp on image #21 measuring approximately 5.5 x 1.5 cm. Sinuses and mastoids: The visualized paranasal sinuses are clear. The mastoid air cells are well pneumatized. Orbits: There is right periorbital soft tissue edema. The bony orbits are grossly intact. Orbital contents are normal as imaged. IMPRESSION: 1. Again seen are postoperative changes from craniotomy and right frontal resection as above. 2. There is extensive right frontotemporoparietal scalp edema, likely representing cellulitis. Periorbital soft tissue edema is noted. 3. There is the suggestion of a 5.5 x 1.5 cm low-attenuation collection in the right scalp overlying the craniotomy. This is nonspecific and may represent seroma, hematoma, pseudomeningocele, or abscess. Clinical correlation will be essential. 4. There is increasing intracranial edema within the right frontal region as well as increasing complex extra-axial material along the right frontal craniotomy site as compared to 01/04/2017. This measures up to 1.5 cm in thickness. This is nonspecific, although this may represent hemorrhage or postoperative change subdural infection/abscess is not excluded. Clinical correlation will be required and neurosurgical assessment is recommended. 5. Residual hyperdense mass lesion is again suggested in the right frontal region. This is similar in appearance to 01/04/2017. Medication Reconciliation New Medications: Vancomycin HCl in Sodium Chlor (VANCOMYCIN in NSS) 1 Inj Inj 1.75 GM IV Q10H for 7 Days, #7 BAG In ml NSS Hydrocortisone (Cortef) 10 Mg Tab 10 MG PO QAM for 30 Days, #30 TAB Continued Medications: Acetaminophen (Tylenol) 500 Mg Tab 1000 MG PO Q6H PRN for Pain or Fever, TAB Amlodipine (Norvasc) 10 Mg Tab 10 MG PO DAILY, TAB Insulin Glargine (Basaglar Kwikpen) 100 Unit/Ml Inj 50 UNITS SQ HS Levetiracetam (Keppra) 500 Mg Tab 1500 MG PO QPM, TAB Levetiracetam (Keppra) 500 Mg Tab 1000 MG PO QAM, TAB Lisinopril (Prinivil) 10 Mg Tab 10 MG PO DAILY, TAB Meclizine Hcl (Meclizine Hcl) 25 Mg Tab 25 MG PO DAILY PRN for DIZZINESS, TAB Ondansetron Hcl (Zofran) 8 Mg Tab 8 MG PO Q8 PRN for Nausea, TAB Pantoprazole (Protonix) 40 Mg Tab 40 MG PO DAILY, TAB Polyethylene Glycol 3350 (Miralax) 1 Pow Pow 17 GM PO DAILY PRN for Constipation, GM Sertraline (Zoloft) 100 Mg Tab 100 MG PO HS, TAB Discontinued Medications: Amoxicillin & Pot Clavulanate (Augmentin 875-125 mg) 1 Tab Tab 1 TAB PO BID, TAB PRESCRIBED 05/07/2017, TAKE DIRECTED UNTIL GONE Hydrocortisone (Cortef) 10 Mg Tab 10 MG PO BID, TAB Insulin Lispro (Human) (Humalog Kwikpen) 100 Unit/Ml Inj 1 DOSE SQ UD COVERAGE DIRECTED BY SLIDING SCALE Metformin Hcl (Metformin Hcl Er) 500 Mg Tab 1000 MG PO BID, TAB Temozolomide (Temozolomide) 100 Mg Cap 100 MG PO UD TAKE ONCE DAILY FOR 5 DAYS EVERY 28 DAYS (5 DAYS ON, 23 DAYS OFF) ONE 100 MG CAPSULE ALONG WITH ONE 250 MG CAPSULE TO EQUAL 350 MG DOSE Temozolomide (Temozolomide) 250 Mg Cap 250 MG PO UD TAKE ONCE DAILY FOR 5 DAYS EVERY 28 DAYS (5 DAYS ON, 23 DAYS OFF) ONE 250 MG CAPSULE ALONG WITH ONE 100 MG CAPSULE TO EQUAL 350 MG DOSE Discharge Exam The patient was seen and examined at bedside. Patient continues to have an abscess on his right forehead. He states that the pain is similar to where it was yesterday - in fact it might be more localized. He states that his eye swelling has improved. was in the room in the AM. Eating and urinating well. Plan of care was described to the patient and all questions were answered. Constitutional: No fever, No chills, No sweats ENT: No hearing loss Respiratory: No cough, No sputum, No wheezing, No shortness of breath, No dyspnea on exertion Cardiovascular: No chest pain Abdomen: No pain, No nausea, No vomiting, No diarrhea, No constipation Neurologic: No memory loss, No weakness, No numbness/tingling Psychiatric: No depression symptoms Physical Exam General Appearance: WD/WN, no apparent distress Eyes: normal inspection, PERRL, EOMI ENT: hearing grossly normal, pharynx normal, + pertinent finding (tender right sided lymph nodes, anterior cervical chain. 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 the surrounding area outside the borders is non tender. ) Hospital Course 42M with past medical history of glioblastoma s/p bifrontal and right parietal craniotomy, DM2 and MRSA presented with sepsis secondary to a painful right forehead abscess. CT and MRI of the head showed a 80mm x 19mm x 63mm right frontal scalp collection which appears to communicate with a right frontal extra -axial collection. Patient completed a course of Augmentin prior to admission and received on admission received 4 days of Vancomycin (Zosyn was discontinued on Hospital Day #3). Our plastic surgeon was consulted for an I&D and together with radiology recommended that an I&D of the forehead abscess be done with neurosurgery backup which we do not have at [facility]. The Last Vancomycin dose was 1.75g at 6pm on 05/12/2017 and it was being administered every 10 hours. The patient has received approximately 4 days of Vancomycin. Blood Cultures were negative. Patient has a history of MRSA however his MRSA swab on this admission was negative. Prior to admission the patient completed an outpatient course of Augmentin. Patients Neuro Oncologist at [place] is Dr. Tomasa Mcdonald. In [place] the patient follows with Dr. Plummer. The patient was using [employer] scalp electrodes at the current site of the abscess. This is a possible source for the abscess. Patient is on 10mg Hydrocortisone PO BID at home. We are weaning to 10mg QAM and continuing this on Transfer. Resident Physician Supervision Note: I was present with the resident physician during the history and exam. I discussed the case with the resident and agree with the findings and plan as documented in the note. I reviewed the risks and benefits of transfer with the patient. We contacted both the [facility] (no beds available) and the [facility] in the process of arranging the transfer. Ultimately, this patient needs neurosurgical consultation, a speciality which is not available at this facility. Documented By: Adiel Jackson Total Time Spent: Greater than 30 minutes (I spent one hour in the discharge of this patient, including exam and care coordination for transfer. ) This includes examination of the patient, discharge planning, medication reconciliation, and communication with other providers. Discharge Instructions Please refer to the electronic Patient Visit Report (Discharge Instructions) for additional information. Additional Copies To Hiram Plummer D.O. Resident Involvement: Resident Care Provided Care Provided: [facility] Medicine
[2017-05-12] MEDS ORDERED: LEVETIRACETAM 500 MG TAB PO SCH (21:00)
[2017-05-12] MEDS: INSULIN GLARGINE SOLOSTAR 100 UNITS/ML 3 ML PEN SQ SCH (21:07)
[2017-05-13 00:05] VITALS: BP 132/80; PULSE 84; TEMP 36.9; O2SAT 95
[2017-05-13] MEDS: GUAIFENESIN/CODEINE 200MG/20MG 10ML UDC PO PRN (04:00)
[2017-05-13] MEDS: KETOROLAC TROMETHAMINE 15 MG/ML VIAL IV. PRN (04:01)
[2017-05-13] MEDS: VANCOMYCIN INJ 1,750 MG in SODIUM CHLORIDE 0.9% 500ML 500 ML IV SCH (04:19)
[2017-05-13 04:23] VITALS: BP 136/73; PULSE 104; TEMP 37.1; O2SAT 92
--- NOTE | 2017-05-13 07:28 | Family Medicine Progress Note ---
Progress Note Date of Service May 13, 2017.
[2017-05-13] MEDS ORDERED: LEVETIRACETAM 500 MG TAB PO SCH (08:00)
== END 2017-05-13 06:45 | disposition short-term general hospital (02) | DRG 872 ==
LOC: C.EDB 18:42 → C.2T 23:23 → ENRESERV 23:32 → EDBEDREQSVC 05-09 17:21 → ENRESERV 05-09 18:03 → C.4E 05-09 18:32
PROVIDERS: ADMIT Student in an Organized Health Care Education/Training Program; ATTEND Family Medicine
DX: A41.9 Sepsis, unspecified organism (principal); L03.211 Cellulitis of face; C71.9 Malignant neoplasm of brain, unspecified; E11.9 Type 2 diabetes mellitus without complications; I10 Essential (primary) hypertension; K21.9 Gastro-esophageal reflux disease without esophagitis; G47.33 Obstructive sleep apnea (adult) (pediatric); Z79.2 Long term (current) use of antibiotics; Z86.14 Personal history of Methicillin resistant Staphylococcus aureus infection; J32.9 Chronic sinusitis, unspecified; Z79.4 Long term (current) use of insulin; G40.909 Epilepsy, unspecified, not intractable, without status epilepticus

== ENCOUNTER → 2017-09-08 | Outpatient (CLI) | payer OTHER ==
[~2017-09-08] MED LIST changes: +ACET-1256 PO; -DEXA2TAB PO; +HYD10 PO; +INSU100I23 SQ; -KPP/1000 PO; -LATA0.5S OPB; +LEVE500T13 PO; -METF1TAB85 PO; +ONDA-170 PO; -ONDA8TAB6 PO; -TEMO100I PO; -TEMO1CAP4 PO; +VANC1INJ94 IV
[2017-09-08 18:23] LABS: BASO % 0.3 %; BASO ABS # 0.02 K/uL (0-0.2); EOS % 2.4 %; EOS ABS # 0.18 K/uL (0-0.5); HEMATOCRIT 41.3 % (42-52); HEMOGLOBIN 14.1 g/dL (14.0-18.0); IG# 0.02 K/uL (0.00-0.02); LYMPH % 35.7 %; LYMPH ABS # 2.72 K/uL (1.2-3.4); MEAN CELL VOLUME 86.8 fL (80-100); MEAN CORPUSCULAR HEMOGLOBIN 29.6 pg (25-34); MEAN CORPUSCULAR HGB CONC 34.1 g/dl (32-36); MEAN PLATELET VOLUME 10.1 fL (7.4-10.4); MONO % 10.8 %; MONO ABS # 0.82 K/uL (0.11-0.59); NEUT % 50.5 %; NEUT ABS # 3.85 K/uL (1.4-6.5); PLATELET COUNT 334 K/uL (130-400); RED CELL DISTRIBUTION WIDTH CV 13.4 % (11.5-14.5); RED CELL DISTRIBUTION WIDTH SD 42.5 fL (36.4-46.3); WHITE BLOOD COUNT 7.61 K/uL (4.8-10.8)
[2017-09-08 19:20] LABS: ALBUMIN 3.8 gm/dl (3.4-5.0); ALT/SGPT 54 U/L (12-78); BLOOD UREA NITROGEN 12 mg/dl (7-18); CALCIUM 9.1 mg/dl (8.5-10.1); CARBON DIOXIDE 25 mmol/L (21-32); GLUCOSE 105 mg/dl (70-99); POTASSIUM 3.7 mmol/L (3.5-5.1); SODIUM 138 mmol/L (136-145)
[2017-09-08 19:22] LABS: ALKALINE PHOSPHATASE 90 U/L (45-117); AST/SGOT 19 U/L (15-37); TOTAL PROTEIN 7.6 gm/dl (6.4-8.2)
== END | disposition home or self-care (01) ==
LOC: C.LAB 17:33
PROVIDERS: ATTEND Internal Medicine Hematology & Oncology
DX: C71.1 Malignant neoplasm of frontal lobe (principal)

== ENCOUNTER 2020-09-10 11:46 | Inpatient (IN) ==
[2020-09-10] MEDS ORDERED: SODIUM CHLORIDE 0.9% 1000ML 1,000 ML IV ONE (11:53)
--- NOTE | 2020-09-10 12:29 | Emergency Department Note ---
Impression & Plan Generalized seizure, Syncope, Acute hypotension ED Provider Note NAME: JOSE GILLIAM AGE: 45 SEX: M : 1975 ARRIVES VIA: Ambulance INFORMANT: Patient, Prehospital personnel, the patient's oncology group ED PROVIDER(S): Nigel Velazquez DO CHIEF COMPLAINT: Seizure HPI: The patient is a 45-year-old male who presented to the emergency department by ambulance for an evaluation of seizure. Patient has a history of primary central nervous system malignancy. He was treated with surgery. He also received chemotherapy. His last chemotherapy treatment was last week. According to his he had 3 episodes of seizure yesterday. They appear to be very severe. They do not describe tonic-clonic activity but it sounds though it was generalized and the patient lost consciousness. The patient self does not complain of any specific symptoms at this time. He states he had 2 more episodes today that appear to be back to back. The last episode was 1 hour prior to arrival. He denies having any headache. He states he has been compliant with his outpatient medication regimen. He also states that he thinks he may have hurt his legs because they are very sore. He denies having any chest pain. He denies having any shortness of breath. He denies having any recent fevers. He states that his blood pressure is normally high but it was reportedly low prior to arrival. The patient denies having any neck pain. ROS: See above HPI for pertinent positives & negatives. A total of 10 systems reviewed and were otherwise negative. PAST MEDICAL HISTORY: See Below PAST SURGICAL HISTORY: See Below FAMILY HISTORY: See Below SOCIAL HISTORY: See Below HOME MEDICATIONS: See Below ALLERGIES: See Below VITALS: See Below PHYSICAL EXAMINATION: GENERAL: The patient is awake and alert. He is somewhat anxious appearing but overall comfortable. EYES: The conjunctivae are clear. The pupils are round and reactive. EARS, NOSE, MOUTH AND THROAT: The nose is without any evidence of any deformity. There is a large defect on the parietal scalp consistent with patient's previous brain surgery. NECK: The neck is nontender and supple. RESPIRATORY: Normal respiratory effort is noted there is no evidence of wheezing rhonchi or rales CARDIOVASCULAR: Regular rate and rhythm noted there no murmurs rubs or gallops normal S1 normal S2. GASTROINTESTINAL: The abdomen is soft. Abdomen is nontender. MUSCULOSKELETAL/EXTREMITIES: There is no evidence of gross deformity full range of motion is noted in the hips and shoulders. SKIN: There is no obvious evidence of any rash. There are no petechiae, pallor or cyanosis noted. NEUROLOGIC: Patient is awake alert and oriented x3. The patient can only flex his hips and knees but cannot lift either leg off the bed. There is no facial droop. Gis Mapping Technician strength appears symmetric. The patient did not have an upper extremity drift. MEDICAL DECISION MAKING: The patient is a 45-year-old male who has a history of glioblastoma who presented to the emergency department for an evaluation after having a seizure episode. The patient had multiple seizures today. He did is receiving chemotherapy still for the glioblastoma. His most recent round of chemo he did not have steroids. I discussed patient's laboratory and radiographic studies with him and his significant other. The patient was treated with IV fluids. Gi carlos the patient's overall condition I discussed his case with the on-call [facility] hospitalist. They have agreed to evaluate the patient in the emergency department for further management and disposition. The patient responded well to IV fluids. No definite infectious source was found. Triage Nursing notes reviewed. Prior medical records reviewed Vital Signs: reviewed and remarkable for initial hypotension. Differential diagnosis: Vasovagal event, dehydration, infection, hypoglycemia, electrolyte abnormalities, cardiac sources, intracerebral event, pulmonary embolism, seizure, toxicologic, neurologic, as well as other pathologies. ER treatment provided: See below Diagnostics interpreted by me: ECG: EKG was obtained in the emergency department. My interpretation is normal sinus rhythm at 74 bpm. There was no ectopy. There was no acute ST segment abnormalities noted. This was compared to a tracing from January 192019. No significant changes were noted. Cardiac Monitoring: An order was placed for continuous cardiac monitoring. The monitor shows a rate of 80 bpm with sinus rhythm. Laboratory studies: As stated above and show below. Imaging studies: See below Consultation(s): [id number]: I discussed this case with Dr. Arnett. Past Med/Surg History Medical History (Updated 09/10/20 @ 17:30 by Nigel Velazquez DO) Diabetes mellitus type 2 niddm GERD (gastroesophageal reflux disease) Glioblastoma multiforme of frontal lobe (08/26/16) "Mental status changes 08/22/2016" Finding of a right frontal lobe mass 5.5 cm Status post bicoronal incision with right frontal craniotomy with stereotactic volumetric resection of the right frontal brain tumor 08/26/2016 (dc [facility]) Glioblastoma WHO grade 4 Incision and drainage of wound infection 09/22/2016" (Dr. Mcdonald Oncology @ [facility]) Hyperlipidemia Obesity Seizure disorder Single episode per pulm 11/12/17. Had a focal seizure 07/2018. Takes Keppra BID. Sleep apnea Severe, on CPAP. Surgical History H/O craniotomy With tumor debulking, [facility] IN [facility] 08/2016. Post op site infection with surgical debridement (09/2016). H/O oral surgery H/O vasectomy S/P craniotomy REMOVAL OF BONE FLAP ON RIGHT FRONTAL LOBE (05/2017 AT [facility]) Social History Smoking Status: Never smoker Second Hand Exposure: No; Hx Alcohol Use: Yes (rare) Hx Substance Use: No Preferred Language: Albanian Communication Ability: Effective Visual Impairment: No Limitations Chairman Emeritus Required: No Beliefs That Will Affect Care: None Current Living Situation: Family Feels Safe at Home: Yes Assistive Devices: CPAP Allergies Allergies Allergy/AdvReac Type Severity Reaction Status Date / Time No Known Allergies Allergy Verified 09/10/20 12:25 Home Meds Home Medications Medication Instructions Recorded Confirmed amlodipine 10 mg PO QAM 07/31/18 09/10/20 levetiracetam 1,000 mg PO QAM 07/31/18 09/10/20 levetiracetam 1,500 mg PO QPM 07/31/18 09/10/20 lisinopril 10 mg PO QAM 07/31/18 09/10/20 metformin 1,000 mg PO BID 07/31/18 09/10/20 pantoprazole 40 mg PO BID 07/31/18 09/10/20 sertraline 100 mg PO QPM 07/31/18 09/10/20 lorazepam [Ativan] 0.5 mg PO DIRECTED PRN 08/31/18 09/10/20 melatonin 5 mg PO HS PRN 01/20/20 09/10/20 baclofen 10 mg PO BID 09/10/20 09/10/20 ondansetron HCl 8 mg PO UD PRN 09/10/20 09/10/20 risperidone 0.25 mg PO BID 09/10/20 09/10/20 Results & Data (ED) Vital Signs Vital Signs - 24 hr 09/10/20 11:52 09/10/20 11:54 09/10/20 12:00 Temperature 37.3 C Temperature Source Oral Pulse Rate 72 72 69 Pulse Rate from SpO2 Sensor 76 70 Respiratory Rate 16 16 12 Respiratory Depth Normal Blood Pressure 97/64 L 97/64 L Blood Pressure Mean 75 75 Blood Pressure Position Lying Pulse Oximetry 100 100 98 Oxygen Delivery Method Room Air Sepsis Recent Fever Within 48 Hours No Sepsis New/Unexplained Change in Mental Status No Sepsis Action Taken by Nursing No Action Required 09/10/20 12:03 09/10/20 12:15 09/10/20 12:16 Temperature Temperature Source Pulse Rate 74 78 72 Pulse Rate from SpO2 Sensor 73 77 74 Respiratory Rate 18 18 15 Respiratory Depth Blood Pressure 124/71 113/78 Blood Pressure Mean 88 89 Blood Pressure Position Pulse Oximetry 96 99 99 Oxygen Delivery Method Sepsis Recent Fever Within 48 Hours Sepsis New/Unexplained Change in Mental Status Sepsis Action Taken by Nursing 09/10/20 12:30 09/10/20 12:31 09/10/20 12:45 Temperature Temperature Source Pulse Rate 82 81 80 Pulse Rate from SpO2 Sensor 83 81 80 Respiratory Rate 14 14 17 Respiratory Depth Blood Pressure 114/73 Blood Pressure Mean 86 Blood Pressure Position Pulse Oximetry 100 100 97 Oxygen Delivery Method Sepsis Recent Fever Within 48 Hours Sepsis New/Unexplained Change in Mental Status Sepsis Action Taken by Nursing 09/10/20 12:57 09/10/20 13:00 09/10/20 13:01 Temperature Temperature Source Pulse Rate 80 79 90 Pulse Rate from SpO2 Sensor 80 79 Respiratory Rate 13 12 23 Respiratory Depth Blood Pressure 107/77 109/78 Blood Pressure Mean 87 88 Blood Pressure Position Pulse Oximetry 98 98 Oxygen Delivery Method Room Air Sepsis Recent Fever Within 48 Hours Sepsis New/Unexplained Change in Mental Status Sepsis Action Taken by Nursing 09/10/20 13:23 09/10/20 13:24 09/10/20 13:30 Temperature Temperature Source Pulse Rate 84 Pulse Rate from SpO2 Sensor 83 90 Respiratory Rate 16 15 24 Respiratory Depth Blood Pressure 113/76 126/92 Blood Pressure Mean 88 103 Blood Pressure Position Pulse Oximetry 98 99 Oxygen Delivery Method Sepsis Recent Fever Within 48 Hours Sepsis New/Unexplained Change in Mental Status Sepsis Action Taken by Nursing 09/10/20 13:45 09/10/20 13:46 09/10/20 14:00 Temperature Temperature Source Pulse Rate 79 80 81 Pulse Rate from SpO2 Sensor 79 80 81 Respiratory Rate 14 13 17 Respiratory Depth Blood Pressure 117/79 113/84 Blood Pressure Mean 91 93 Blood Pressure Position Pulse Oximetry 98 97 99 Oxygen Delivery Method Sepsis Recent Fever Within 48 Hours Sepsis New/Unexplained Change in Mental Status Sepsis Action Taken by Nursing 09/10/20 14:01 09/10/20 14:15 09/10/20 14:16 Temperature Temperature Source Pulse Rate 77 79 78 Pulse Rate from SpO2 Sensor 77 95 H 79 Respiratory Rate 15 17 12 Respiratory Depth Blood Pressure 117/80 Blood Pressure Mean 92 Blood Pressure Position Pulse Oximetry 96 92 100 Oxygen Delivery Method Sepsis Recent Fever Within 48 Hours Sepsis New/Unexplained Change in Mental Status Sepsis Action Taken by Nursing 09/10/20 14:30 09/10/20 14:31 09/10/20 15:00 Temperature Temperature Source Pulse Rate 81 80 Pulse Rate from SpO2 Sensor 81 80 Respiratory Rate 16 13 Respiratory Depth Blood Pressure 110/77 Blood Pressure Mean 88 Blood Pressure Position Pulse Oximetry 97 99 96 Oxygen Delivery Method Room Air Sepsis Recent Fever Within 48 Hours Sepsis New/Unexplained Change in Mental Status Sepsis Action Taken by Detention Medications Current Medication List: was personally reviewed by me Laboratory Data Attestation: I reviewed the patient's lab results. Result diagrams: 09/10/20 12:25 09/10/20 12:25 Lab Results 09/10/20 09/10/20 09/10/20 Range/Units 12:25 12:25 12:25 WBC 7.37 (4.8-10.8) K/uL RBC 3.98 L (4.7-6.1) M/uL Hgb 11.7 L (14.0-18.0) g/dL Hct 35.3 L (42-52) % MCV 88.7 (80-100) fL MCH 29.4 (25-34) pg MCHC 33.1 (32-36) g/dL RDW Std Deviation 51.3 H (36.4-46.3) fL RDW Coeff of Katy 15.8 H (11.5-14.5) % Plt Count 248 (130-400) K/uL MPV 9.4 (7.4-10.4) fL Immature Gran % (Auto) 0.1 % Neut % (Auto) 69.7 % Lymph % (Auto) 23.1 % Blanco % (Auto) 4.9 % Eos % (Auto) 1.9 % Baso % (Auto) 0.3 % Neut # (Auto) 5.14 (1.4-6.5) K/uL Lymph # (Auto) 1.70 (1.2-3.4) K/uL Blanco # (Auto) 0.36 (0.11-0.59) K/uL Eos # (Auto) 0.14 (0-0.5) K/uL Baso # (Auto) 0.02 (0-0.2) K/uL Immature Gran # (Auto) 0.01 (0.00-0.02) K/uL ESR (0-14) mm/hr PT (9.0-12.0) Seconds INR (0.9-1.1) APTT (21.0-31.0) Seconds PTT Ratio Sodium 138 (136-145) mmol/L Potassium 4.3 (3.5-5.1) mmol/L Chloride 107 (98-107) mmol/L Carbon Dioxide 24 (21-32) mmol/L Anion Gap 7.0 (3-11) BUN 21 H (7-18) mg/dl Creatinine 1.29 (0.6-1.4) mg/dl Est Cr Clr Drug Dosing 85.2 ml/min Est GFR ( Amer) 76.6 Est GFR (Non-Af Amer) 66.1 BUN/Creatinine Ratio 16.2 (10-20) Glucose 134 H (70-99) mg/dl Lactate (0.4-2.0) mmol/L Calcium 7.6 L (8.5-10.1) mg/dl Magnesium 1.3 L (1.8-2.4) mg/dl Total Bilirubin 0.3 (0.2-1) mg/dl AST 11 L (15-37) U/L ALT 27 (12-78) U/L Alkaline Phosphatase 59 (45-117) U/L Total Creatine Kinase 47 (39-308) U/L CK-MB (CK-2) < 1.0 (0.5-3.6) ng/ml CK/CKMB % Calc TNP Troponin I < 0.015 (0-0.045) ng/ml C-Reactive Protein 2.02 H (0-0.29) mg/dl Total Protein 6.4 (6.4-8.2) gm/dl Albumin 2.9 L (3.4-5.0) gm/dl Globulin 3.5 (2.5-4.0) gm/dl Albumin/Globulin Ratio 0.8 L (0.9-2) Procalcitonin < 0.05 (0-0.5) ng/ml Prolactin ng/ml Random Cortisol mcg/dl Urine Color Urine Appearance (Clear) Urine pH (4.5-7.5) Ur Specific Stacy (1.000-1.030) Urine Protein (Negative) Urine Glucose (UA) (Negative) Urine Ketones (Negative) Urine Blood (Negative) Urine Nitrite (Negative) Urine Bilirubin (Negative) Urine Urobilinogen (Negative) Ur Leukocyte Esterase (Negative) COVID-19 Eval Order SARS-CoV-2 (PCR) (Negative) Influenza Type A (PCR) (Neg) Influenza Type B (PCR) (Neg) RSV (RT-PCR) (Neg) 09/10/20 09/10/20 09/10/20 Range/Units 12:25 12:25 12:25 WBC (4.8-10.8) K/uL RBC (4.7-6.1) M/uL Hgb (14.0-18.0) g/dL Hct (42-52) % MCV (80-100) fL MCH (25-34) pg MCHC (32-36) g/dL RDW Std Deviation (36.4-46.3) fL RDW Coeff of Katy (11.5-14.5) % Plt Count (130-400) K/uL MPV (7.4-10.4) fL Immature Gran % (Auto) % Neut % (Auto) % Lymph % (Auto) % Blanco % (Auto) % Eos % (Auto) % Baso % (Auto) % Neut # (Auto) (1.4-6.5) K/uL Lymph # (Auto) (1.2-3.4) K/uL Blanco # (Auto) (0.11-0.59) K/uL Eos # (Auto) (0-0.5) K/uL Baso # (Auto) (0-0.2) K/uL Immature Gran # (Auto) (0.00-0.02) K/uL ESR (0-14) mm/hr PT 11.2 (9.0-12.0) Seconds INR 1.1 (0.9-1.1) APTT 32.2 H (21.0-31.0) Seconds PTT Ratio 1.2 Sodium (136-145) mmol/L Potassium (3.5-5.1) mmol/L Chloride (98-107) mmol/L Carbon Dioxide (21-32) mmol/L Anion Gap (3-11) BUN (7-18) mg/dl Creatinine (0.6-1.4) mg/dl Est Cr Clr Drug Dosing ml/min Est GFR ( Amer) Est GFR (Non-Af Amer) BUN/Creatinine Ratio (10-20) Glucose (70-99) mg/dl Lactate 2.0 (0.4-2.0) mmol/L Calcium (8.5-10.1) mg/dl Magnesium (1.8-2.4) mg/dl Total Bilirubin (0.2-1) mg/dl AST (15-37) U/L ALT (12-78) U/L Alkaline Phosphatase (45-117) U/L Total Creatine Kinase (39-308) U/L CK-MB (CK-2) (0.5-3.6) ng/ml CK/CKMB % Calc Troponin I (0-0.045) ng/ml C-Reactive Protein (0-0.29) mg/dl Total Protein (6.4-8.2) gm/dl Albumin (3.4-5.0) gm/dl Globulin (2.5-4.0) gm/dl Albumin/Globulin Ratio (0.9-2) Procalcitonin (0-0.5) ng/ml Prolactin 57.13 ng/ml Random Cortisol mcg/dl Urine Color Urine Appearance (Clear) Urine pH (4.5-7.5) Ur Specific Stacy (1.000-1.030) Urine Protein (Negative) Urine Glucose (UA) (Negative) Urine Ketones (Negative) Urine Blood (Negative) Urine Nitrite (Negative) Urine Bilirubin (Negative) Urine Urobilinogen (Negative) Ur Leukocyte Esterase (Negative) COVID-19 Eval Order SARS-CoV-2 (PCR) (Negative) Influenza Type A (PCR) (Neg) Influenza Type B (PCR) (Neg) RSV (RT-PCR) (Neg) 09/10/20 09/10/20 09/10/20 Range/Units 12:25 12:25 13:40 WBC (4.8-10.8) K/uL RBC (4.7-6.1) M/uL Hgb (14.0-18.0) g/dL Hct (42-52) % MCV (80-100) fL MCH (25-34) pg MCHC (32-36) g/dL RDW Std Deviation (36.4-46.3) fL RDW Coeff of Katy (11.5-14.5) % Plt Count (130-400) K/uL MPV (7.4-10.4) fL Immature Gran % (Auto) % Neut % (Auto) % Lymph % (Auto) % Blanco % (Auto) % Eos % (Auto) % Baso % (Auto) % Neut # (Auto) (1.4-6.5) K/uL Lymph # (Auto) (1.2-3.4) K/uL Blanco # (Auto) (0.11-0.59) K/uL Eos # (Auto) (0-0.5) K/uL Baso # (Auto) (0-0.2) K/uL Immature Gran # (Auto) (0.00-0.02) K/uL ESR 51 H (0-14) mm/hr PT (9.0-12.0) Seconds INR (0.9-1.1) APTT (21.0-31.0) Seconds PTT Ratio Sodium (136-145) mmol/L Potassium (3.5-5.1) mmol/L Chloride (98-107) mmol/L Carbon Dioxide (21-32) mmol/L Anion Gap (3-11) BUN (7-18) mg/dl Creatinine (0.6-1.4) mg/dl Est Cr Clr Drug Dosing ml/min Est GFR ( Amer) Est GFR (Non-Af Amer) BUN/Creatinine Ratio (10-20) Glucose (70-99) mg/dl Lactate (0.4-2.0) mmol/L Calcium (8.5-10.1) mg/dl Magnesium (1.8-2.4) mg/dl Total Bilirubin (0.2-1) mg/dl AST (15-37) U/L ALT (12-78) U/L Alkaline Phosphatase (45-117) U/L Total Creatine Kinase (39-308) U/L CK-MB (CK-2) (0.5-3.6) ng/ml CK/CKMB % Calc Troponin I (0-0.045) ng/ml C-Reactive Protein (0-0.29) mg/dl Total Protein (6.4-8.2) gm/dl Albumin (3.4-5.0) gm/dl Globulin (2.5-4.0) gm/dl Albumin/Globulin Ratio (0.9-2) Procalcitonin (0-0.5) ng/ml Prolactin ng/ml Random Cortisol 16.21 mcg/dl Urine Color Yellow Urine Appearance Clear (Clear) Urine pH 6.0 (4.5-7.5) Ur Specific Stacy 1.017 (1.000-1.030) Urine Protein Negative (Negative) Urine Glucose (UA) Negative (Negative) Urine Ketones Negative (Negative) Urine Blood Negative (Negative) Urine Nitrite Negative (Negative) Urine Bilirubin Negative (Negative) Urine Urobilinogen Negative (Negative) Ur Leukocyte Esterase Negative (Negative) COVID-19 Eval Order SARS-CoV-2 (PCR) (Negative) Influenza Type A (PCR) (Neg) Influenza Type B (PCR) (Neg) RSV (RT-PCR) (Neg) 09/10/20 09/10/20 Range/Units 14:45 14:45 WBC (4.8-10.8) K/uL RBC (4.7-6.1) M/uL Hgb (14.0-18.0) g/dL Hct (42-52) % MCV (80-100) fL MCH (25-34) pg MCHC (32-36) g/dL RDW Std Deviation (36.4-46.3) fL RDW Coeff of Katy (11.5-14.5) % Plt Count (130-400) K/uL MPV (7.4-10.4) fL Immature Gran % (Auto) % Neut % (Auto) % Lymph % (Auto) % Blanco % (Auto) % Eos % (Auto) % Baso % (Auto) % Neut # (Auto) (1.4-6.5) K/uL Lymph # (Auto) (1.2-3.4) K/uL Blanco # (Auto) (0.11-0.59) K/uL Eos # (Auto) (0-0.5) K/uL Baso # (Auto) (0-0.2) K/uL Immature Gran # (Auto) (0.00-0.02) K/uL ESR (0-14) mm/hr PT (9.0-12.0) Seconds INR (0.9-1.1) APTT (21.0-31.0) Seconds PTT Ratio Sodium (136-145) mmol/L Potassium (3.5-5.1) mmol/L Chloride (98-107) mmol/L Carbon Dioxide (21-32) mmol/L Anion Gap (3-11) BUN (7-18) mg/dl Creatinine (0.6-1.4) mg/dl Est Cr Clr Drug Dosing ml/min Est GFR ( Amer) Est GFR (Non-Af Amer) BUN/Creatinine Ratio (10-20) Glucose (70-99) mg/dl Lactate (0.4-2.0) mmol/L Calcium (8.5-10.1) mg/dl Magnesium (1.8-2.4) mg/dl Total Bilirubin (0.2-1) mg/dl AST (15-37) U/L ALT (12-78) U/L Alkaline Phosphatase (45-117) U/L Total Creatine Kinase (39-308) U/L CK-MB (CK-2) (0.5-3.6) ng/ml CK/CKMB % Calc Troponin I (0-0.045) ng/ml C-Reactive Protein (0-0.29) mg/dl Total Protein (6.4-8.2) gm/dl Albumin (3.4-5.0) gm/dl Globulin (2.5-4.0) gm/dl Albumin/Globulin Ratio (0.9-2) Procalcitonin (0-0.5) ng/ml Prolactin ng/ml Random Cortisol mcg/dl Urine Color Urine Appearance (Clear) Urine pH (4.5-7.5) Ur Specific Stacy (1.000-1.030) Urine Protein (Negative) Urine Glucose (UA) (Negative) Urine Ketones (Negative) Urine Blood (Negative) Urine Nitrite (Negative) Urine Bilirubin (Negative) Urine Urobilinogen (Negative) Ur Leukocyte Esterase (Negative) COVID-19 Eval Order CovFluRsv at [facility] SARS-CoV-2 (PCR) NEGATIVE (Negative) Influenza Type A (PCR) Negative (Neg) Influenza Type B (PCR) Negative (Neg) RSV (RT-PCR) Negative (Neg) Administered Medications Discontinued Medications Sodium Chloride (Nss 1000ml) 1,000 mls @ 999 mls/hr IV .[id number] ONE Stop: 09/10/20 12:53 Last Infusion: 09/10/20 13:08 Dose: 0 mls/hr Documented by: [id number] Admin: 09/10/20 11:55 Dose: 999 mls/hr Documented by: [id number] Magnesium Sulfate/Dextrose (Magnesium Sulfate / D5w) 1 gm in 100 mls @ 100 mls/hr IV Q1H HARDIK Stop: 09/10/20 15:30 Last Admin: 09/10/20 15:56 Dose: 100 mls/hr Documented by: [id number] Infusion: 09/10/20 15:48 Dose: 100 mls/hr Documented by: [id number] Admin: 09/10/20 14:48 Dose: 100 mls/hr Documented by: [id number] Imaging Data Radiologist's Impression: Head CT 09/10/20 11:53 CT SCAN OF THE BRAIN WITHOUT IV CONTRAST CLINICAL HISTORY: Seizure. History of glioblastoma with previous surgical resections. COMPARISON STUDY: CT of the brain dated 05/11/2017. MRI of the brain dated 08/01/2020. TECHNIQUE: Unenhanced axial CT scan of the brain is performed from the vertex to the skull base. A dose lowering technique was utilized adhering to the principles of ALARA. CT DOSE: 614.27 mGy.cm FINDINGS: Brain parenchyma: There is right frontal encephalomalacia with associated ex vacuo dilatation of the right lateral ventricle consistent with previous surgical resection. Calcification and gliosis is again seen in the right frontal lobe along the superior aspect of the resection cavity, including a 3 x 2 cm focus seen on image #22. Residual tumor is suspected, and this was much better assessed on the recent MRI. Minimal calcification is also seen in the left periventricular white matter. Periventricular white matter changes likely related to previous radiation treatment. There is no hemorrhage, midline shift, or evidence of acute territorial ischemia by CT criteria. No extra-axial fluid collection is seen. Ventricles, sulci, cisterns: See above. Intracranial vasculature: The visualized intracranial vasculature at the skull base is normal in appearance. Calvarium: There is postoperative change from bifrontal and right-sided craniectomy. No destructive calvarial lesion is seen. Sinuses and mastoids: The visualized paranasal sinuses are clear. The mastoid air cells are well pneumatized. Orbits: The bony orbits are grossly intact. IMPRESSION: 1. There is no hemorrhage, mass effect, or evidence of acute territorial ischemia by CT criteria. 2. Chronic postoperative and treatment related changes as above. ACT 112: Negative or not required by law. Electronically signed by: Junaid Allen M.D. 09/10/2020 1:31 PM Chest X-Ray 09/10/20 11:54 SINGLE VIEW CHEST CLINICAL HISTORY: Sepsis. FINDINGS: An AP, portable, upright chest radiograph is compared to study dated 08/28/2020 and correlated with chest CT dated 02/04/2020. The examination is mildly degraded by portable technique and patient rotation. A left subclavian central venous infusion port is unchanged in position. The heart is top normal for projection. Mild atelectasis is noted at the left lung base. The lungs and pleural spaces are otherwise clear. No pneumothorax is seen. The bony thorax is grossly intact. IMPRESSION: No active disease in the chest. ACT 112: Negative or not required by law. Electronically signed by: Junaid Allen M.D. 09/10/2020 12:51 PM Discharge Plan Visit Data Chief Complaint: Seizure Stated Complaint: Seizures ED Provider: Nigel Velazquez Discharge Problem: Generalized seizure, Syncope, Acute hypotension Patient Disposition: Being Evaluated by Hospitalist Condition: Good Forms Stand Alone Forms: My [facility] [place] [facility] Prescriptions Prescriptions: No Action levetiracetam 500 mg tablet 1,000 mg PO QAM RF: 0 levetiracetam 500 mg tablet 1,500 mg PO QPM RF: 0 sertraline 100 mg tablet 100 mg PO QPM RF: 0 amlodipine 10 mg tablet 10 mg PO QAM RF: 0 pantoprazole 40 mg tablet,delayed release (DR/EC) 40 mg PO BID RF: 0 metformin 1,000 mg tablet 1,000 mg PO BID RF: 0 lisinopril 10 mg tablet 10 mg PO QAM RF: 0 lorazepam [Ativan] 0.5 mg Tablet 0.5 mg PO DIRECTED PRN (Reason: Anxiety) RF: 0 melatonin 5 mg Tablet 5 mg PO HS PRN (Reason: Sleep) RF: 0 ondansetron HCl 8 mg tablet 8 mg PO UD PRN (Reason: Nausea) RF: 0 risperidone 0.25 mg tablet 0.25 mg PO BID RF: 0 baclofen 10 mg tablet 10 mg PO BID RF: 0 Referrals Referrals: Kris Soelr [Primary Care Provider] - Discharge Problem: Syncope Qualifiers: Syncope type: unspecified Qualified Code(s): R55 - Syncope and collapse
[2020-09-10 12:36] LABS: Basophils # (auto) 0.02 K/uL (0-0.2); Basophils % (auto) 0.3 %; Eosinophils # (auto) 0.14 K/uL (0-0.5); Eosinophils % (auto) 1.9 %; Hematocrit (blood only) 35.3 % (42-52); Hemoglobin 11.7 g/dL (14.0-18.0); Immature Granulocytes # (auto) 0.01 K/uL (0.00-0.02); Immature Granulocytes % (auto) 0.1 %; Lymphocytes % (auto) 23.1 %; Mean Corpuscular Hemoglobin 29.4 pg (25-34); Mean Corpuscular Hgb Conc 33.1 g/dL (32-36); Mean Corpuscular Volume 88.7 fL (80-100); Mean Platelet Volume 9.4 fL (7.4-10.4); Monocytes # (auto) 0.36 K/uL (0.11-0.59); Monocytes % (auto) 4.9 %; Neutrophils # (auto) 5.14 K/uL (1.4-6.5); Neutrophils % (auto) 69.7 %; Platelet Count 248 K/uL (130-400); RDW Coefficient of Variation 15.8 % (11.5-14.5); RDW Standard Deviation 51.3 fL (36.4-46.3); Red Blood Count 3.98 M/uL (4.7-6.1); White Blood Count 7.37 K/uL (4.8-10.8)
[2020-09-10 12:50] LABS: INR 1.1 (0.9-1.1); Partial Thromboplastin Ratio 1.2; Partial Thromboplastin Time 32.2 Seconds (21.0-31.0); Prothrombin Time 11.2 Seconds (9.0-12.0)
--- NOTE | 2020-09-10 12:53 | XRay Report ---
SINGLE VIEW CHEST CLINICAL HISTORY: Sepsis. FINDINGS: An AP, portable, upright chest radiograph is compared to study dated 08/28/2020 and correlat ed with chest CT dated 02/04/2020. The examination is mildly degraded by portable technique and patien t rotation. A left subclavian central venous infusion port is unchanged in position. The heart is top normal for projection. Mild atelectasis is noted at the left lung base. The lungs and pleural spaces are otherwise clear. No pneumothorax is seen. The bony thorax is grossly intact. IMPRESSION: No active disease in the chest. ACT 112: Negative or not required by law. Electronically signed by: Junaid Allen M.D. 09/10/2020 12:51 PM
[2020-09-10 12:55] LABS: Alanine Aminotransferase 27 U/L (12-78); Albumin Level 2.9 gm/dl (3.4-5.0); Aspartate Aminotransferase 11 U/L (15-37); BUN Creatinine Ratio 16.2 (10-20); Blood Urea Nitrogen 21 mg/dl (7-18); Calcium 7.6 mg/dl (8.5-10.1); Carbon Dioxide 24 mmol/L (21-32); Chloride 107 mmol/L (98-107); Creatinine Clr Calc Pharmacy 85.2 ml/min; Est GFR (African American) 76.6; Est GFR (Non-African American) 66.1; Glucose 134 mg/dl (70-99); Magnesium 1.3 mg/dl (1.8-2.4); Potassium 4.3 mmol/L (3.5-5.1); Sodium 138 mmol/L (136-145)
[2020-09-10 12:58] LABS: Albumin Globulin Ratio 0.8 (0.9-2); Alkaline Phosphatase 59 U/L (45-117); Bilirubin,Total 0.3 mg/dl (0.2-1); C Reactive Protein 2.02 mg/dl (0-0.29); Creatine Kinase 47 U/L (39-308); Creatine Kinase MB < 1.0 ng/ml (0.5-3.6); Globulin 3.5 gm/dl (2.5-4.0); Total Protein 6.4 gm/dl (6.4-8.2); Troponin I < 0.015 ng/ml (0-0.045)
--- NOTE | 2020-09-10 13:33 | CT Scan Report ---
CT SCAN OF THE BRAIN WITHOUT IV CONTRAST CLINICAL HISTORY: Seizure. History of glioblastoma with previous surgical resections. COMPARISON STUDY: CT of the brain dated 05/11/2017. MRI of the brain dated 08/01/2020. TECHNIQUE: Unenhanced axial CT scan of the brain is performed from the vertex to the skull base. A d ose lowering technique was utilized adhering to the principles of ALARA. CT DOSE: 614.27 mGy.cm FINDINGS: Brain parenchyma: There is right frontal encephalomalacia with associated ex vacuo dilatation of the right lateral ventricle consistent with previous surgical resection. Calcification and gliosis is aga in seen in the right frontal lobe along the superior aspect of the resection cavity, including a 3 x 2 cm focus seen on image #22. Residual tumor is suspected, and this was much better assessed on the r ecent MRI. Minimal calcification is also seen in the left periventricular white matter. Periventricul ar white matter changes likely related to previous radiation treatment. There is no hemorrhage, midli ne shift, or evidence of acute territorial ischemia by CT criteria. No extra-axial fluid collection is seen. Ventricles, sulci, cisterns: See above. Intracranial vasculature: The visualized intracranial vasculature at the skull base is normal in appe arance. Calvarium: There is postoperative change from bifrontal and right-sided craniectomy. No destructive c alvarial lesion is seen. Sinuses and mastoids: The visualized paranasal sinuses are clear. The mastoid air cells are well pneu matized. Orbits: The bony orbits are grossly intact. IMPRESSION: 1. There is no hemorrhage, mass effect, or evidence of acute territorial ischemia by CT criteria. 2. Chronic postoperative and treatment related changes as above. ACT 112: Negative or not required by law. Electronically signed by: Junaid Allen M.D. 09/10/2020 1:31 PM
[2020-09-10 13:46] LABS: Appearance Urine Clear (Clear); Bilirubin Urine Negative (Negative); Blood Urine Negative (Negative); Color Urine Yellow; Glucose Urine UA Negative (Negative); Ketones Urine Negative (Negative); Leukocyte Esterase Urine Negative (Negative); Nitrite Urine Negative (Negative); Protein Urine Negative (Negative); Specific Gravity Urine 1.017 (1.000-1.030); Urobilinogen Urine Negative (Negative)
--- NOTE | 2020-09-10 13:53 | Electrocardiogram Report ---
Test Reason : Blood Pressure : / mmHG Vent. Rate : 074 BPM Atrial Rate : 074 BPM P-R Int : 188 ms QRS Dur : 074 ms QT Int : 366 ms P-R-T Axes : 052 001 023 degrees QTc Int : 406 ms Normal sinus rhythm Diffuse Minor Nonspecific T wave abnormality Abnormal ECG When compared with ECG of 20-JAN-2020 22:37, No significant change Confirmed by Adelfo Li ([id number]) on 09/10/2020 1:53:28 PM Referred By: REFERRED SELF Confirmed By:Adelfo Li
[2020-09-10] MEDS: MAGNESIUM SULFATE / D5W 1 GM/100 ML BAG IV SCH ×2 (14:48→15:56)
--- NOTE | 2020-09-10 15:06 | History & Physical Report ---
Date of Service September 10, 2020 Assessment & Plan (1) Seizure-like activity: Suspect vasovagal due to shower, chemotherapy, antihypertensives, lack of dexamethasone. Cortisol level pending. Hold amlodipine. Continue lisinopril. Will need orthostatics prior to discharge. MRI brain with and without contrast seizure protocol EEG Consult neurology (2) Seizure disorder: Continue (3) Diabetes mellitus: No BSG as well controlled and patient has a needlestick phobia Continue Metformin 1 g p.o. twice daily (4) Sleep apnea: Patient no had CPAP for the last year (5) GERD (gastroesophageal reflux disease): Pantoprazole 40mg PO BID (6) Glioblastoma multiforme of frontal lobe: Ongoing chemotherapy - follow up with Dr Plummer as outpatient. Admission and Anticipated Discharge Date Admission Date: September 10, 2020 History of Present Illness Chief Complaint: Seizure-like activity Primary Care Provider: Kris Soler Lucas Khan is a 45 year old male with history of Glioblastoma multiforme s/p craniotomy and chemoradiation with complication of an abscess who presents to the ER via EMS after seizure-like activity at home. The patient has a history of seizures although last one was over a year ago. Unable to get much history from patient due to poor memory of the event. He reports feeling his normal self this morning. No dizziness, chest pain or shortness of breath before the fall, although unclear how reliable history this is. History mostly taken from his at bedside. He had sushi to eat prior to a shower this morning. While in the shower he had an unwitnessed fall, unknown if seizure activity after falling. His and sons got him up at which point he collapsed to the floor going limp. He had shaking similar to his prior seizures on the floor for around 5 minutes. After this they tried to get him up to a chair and he went limp again and fell to the floor, again with some shaking activity lasting for a few minutes. Baseline mobility is walking without a walker. In the ER no further seizure activity is warranted. Allergies Allergy/AdvReac Type Severity Reaction Status Date / Time No Known Allergies Allergy Verified 09/10/20 12:25 Home Medications Medication Instructions Recorded Confirmed Type amlodipine 10 mg PO QAM 07/31/18 09/10/20 History levetiracetam 1,000 mg PO QAM 07/31/18 09/10/20 History levetiracetam 1,500 mg PO QPM 07/31/18 09/10/20 History lisinopril 10 mg PO QAM 07/31/18 09/10/20 History metformin 1,000 mg PO BID 07/31/18 09/10/20 History pantoprazole 40 mg PO BID 07/31/18 09/10/20 History sertraline 100 mg PO QPM 07/31/18 09/10/20 History lorazepam [Ativan] 0.5 mg PO DIRECTED PRN 08/31/18 09/10/20 History melatonin 5 mg PO HS PRN 01/20/20 09/10/20 History baclofen 10 mg PO BID 09/10/20 09/10/20 History ondansetron HCl 8 mg PO UD PRN 09/10/20 09/10/20 History risperidone 0.25 mg PO BID 09/10/20 09/10/20 History Past Med/Surg History Medical History Diabetes mellitus type 2 niddm GERD (gastroesophageal reflux disease) Glioblastoma multiforme of frontal lobe (08/26/16) "Mental status changes 08/22/2016" Finding of a right frontal lobe mass 5.5 cm Status post bicoronal incision with right frontal craniotomy with stereotactic volumetric resection of the right frontal brain tumor 08/26/2016 (dc [facility]) Glioblastoma WHO grade 4 Incision and drainage of wound infection 09/22/2016" (Dr. Mcdonald Oncology @ [facility]) Hyperlipidemia Obesity Seizure disorder Single episode per pulm 11/12/17. Had a focal seizure 07/2018. Takes Keppra BID. Sleep apnea Severe, on CPAP. Surgical History H/O craniotomy With tumor debulkingKYM IN [facility] 08/2016. Post op site infection with surgical debridement (09/2016). H/O oral surgery H/O vasectomy S/P craniotomy REMOVAL OF BONE FLAP ON RIGHT FRONTAL LOBE (05/2017 AT [facility]) Social History Smoking Status: Never smoker Second Hand Exposure: No; Do You Dip or Chew Tobacco: No; Tobacco Cessation Education Requested by Patient: No Hx Alcohol Use: Yes Alcohol type: beer and hard liquor Hx Substance Use: No Preferred Language: Indonesian Communication Ability: Effective Visual Impairment: No Limitations Head Of Design Required: No Beliefs That Will Affect Care: Anabaptist Current Living Situation: Spouse Current Living Situation Comment: lives with Other Information That Helps Us Care for You: No Feels Safe at Home: Yes Safety Concerns: Feels Safe At This Time Assistive Devices: CPAP Assistive Devices Comment: pt states he wears a C-pap at h.s. Review of Systems Review of Systems: All systems reviewed & are unremarkable except as noted in HPI & below Physical Exam Constitutional: no acute distress Eyes: + anicteric sclerae ENMT: external ear and nose normal, oropharynx normal Neck: trachea midline Respiratory: normal respiratory effort, lungs clear to auscultation Cardiovascular: RRR, no murmur, no edema Gastrointestinal (Abdomen): normal bowel sounds, soft, nontender, no hepa tosplenomegaly Musculoskeletal: no cyanosis or clubbing, extremities motor strength 5/5 Skin: no rashes, warm and dry Neurologic: moves all extremities, awake and + confused (at baseline) Speech / Cognition: normal speech Cranial Nerves: PERRL and normal facial strength Right craniotomy noted Psychiatric: Orientation: alert and oriented to person; + not oriented to place and + not oriented to time Results & Data Results & Data ([facility]) Vital Signs (Past 12 Hours) Vital Signs Temp Pulse Resp BP Pulse Ox 09/10/20 14:31 80 13 99 09/10/20 14:30 81 16 110/77 97 09/10/20 14:16 78 12 100 09/10/20 14:15 79 17 117/80 92 09/10/20 14:01 77 15 96 09/10/20 14:00 81 17 113/84 99 09/10/20 13:46 80 13 97 09/10/20 13:45 79 14 117/79 98 09/10/20 13:30 24 126/92 99 09/10/20 13:24 84 15 113/76 98 09/10/20 13:23 16 09/10/20 13:01 90 23 04/04/21 13:00 79 12 109/78 98 09/10/20 12:57 80 13 107/77 98 09/10/20 12:45 80 17 97 09/10/20 12:31 81 14 100 09/10/20 12:30 82 14 114/73 100 09/10/20 12:16 72 15 99 09/10/20 12:15 78 18 113/78 99 09/10/20 12:03 74 18 124/71 96 09/10/20 12:00 69 12 98 09/10/20 11:54 37.3 C 72 16 97/64 L 100 09/10/20 11:52 72 16 97/[address] SCAN OF THE BRAIN WITHOUT IV CONTRAST IMPRESSION: 1. There is no hemorrhage, mass effect, or evidence of acute territorial ischemia by CT criteria. 2. Chronic postoperative and treatment related changes as above. Medications Administered ER Medications Given: NSS 1L bolus Magnesium sulphate 2g IV ECG Indication: altered mental status Rate (beats per minute): 74 Findings: + other (diffuse minor T wave abnormality); no acute ischemic change Comparison ECG Date: from (January 20, 2020) Change: no significant change Code Status & VTE Plan Code Status Full VTE Prophylaxis Plan VTE Prophylaxis will be ordered: No Reason for no VTE drug order: Drug declined by patient PG Care Time/CCT Total # of Minutes Spent Total Time Spent with Patient: Total time spent is greater than 50% in coordination of care (as documented) at patient's floor/unit and/or counseling patient: Coding Level of Care Code 21159 Initial Inpt Care Lvl 3 Diagnoses Seizure-like activity R56.9 Seizure disorder G40.909 Diabetes mellitus E11.9 Sleep apnea G47.30 GERD (gastroesophageal reflux disease) K21.9 Glioblastoma multiforme of frontal lobe C71.1
[2020-09-10 16:11] LABS: Influenza A virus by PCR Negative (Neg); Influenza B virus by PCR Negative (Neg); RSV by PCR Negative (Neg); SARS CoV2 RNA(COVID-19) InHosp NEGATIVE (Negative)
[2020-09-10] MEDS ORDERED: ONDANSETRON INJ 2 MG/ML 2 ML VIAL IV PRN (17:59)
[2020-09-10] MEDS ORDERED: MELATONIN 3 MG TAB PO PRN (17:59)
[2020-09-10] MEDS ORDERED: ACETAMINOPHEN 325 MG TAB PO PRN (17:59)
[2020-09-10] MEDS ORDERED: PNEUMOCOCCAL POLYSACCHARIDES 25 MCG/0.5 ML VIAL/SYR IM ONE (18:32)
[2020-09-10] MEDS ORDERED: PNEUMOCOCCAL ADMINISTRATION CHARGE ONE (18:32)
[2020-09-10] MEDS: metFORMIN HCL 500 MG TAB PO SCH (18:41)
[2020-09-10] MEDS: HEPARIN 100 UNIT/ML 5ML FLUSH FLUSH PRN (20:11)
[2020-09-10] MEDS: PANTOprazole 40 MG TAB PO SCH (20:12)
[2020-09-10] MEDS: risperiDONE 0.5 MG TABLET PO SCH (20:12)
[2020-09-10] MEDS: BACLOFEN 10 MG TAB PO SCH (20:12)
[2020-09-10] MEDS ORDERED: SERTRALINE HCL 100 MG TABLET PO SCH (21:00)
[2020-09-10] MEDS ORDERED: LORazepam 0.5 MG TAB PO SCH (21:00)
[2020-09-10] MEDS ORDERED: levETIRAcetam 500 MG TAB PO SCH (21:00)
[2020-09-11] MEDS ORDERED: LORazepam 4 MG/8 ML VIAL IV PRN (01:24)
[2020-09-11] MEDS ORDERED: GADOBUTROL 30ML VIAL IV ONE (06:07)
--- NOTE | 2020-09-11 07:33 | Hospitalist Progress Note ---
Date of Service September 11, 2020 Assessment & Plan (1) Seizure-like activity: Suspect vasovagal due to shower, chemotherapy, antihypertensives, lack of dexamethasone. random Cortisol level 16 on 09/10/20 Hold antihypertensives, amlodipine, but Continue lisinopril. Will need orthostatics prior to discharge. MRI brain with and without contrast seizure protocol EEG Consult neurology (2) Seizure disorder: Continue , keppra level pending (3) Diabetes mellitus: No BSG patient has a needlestick phobia Continue Metformin 1 g p.o. twice daily (4) Sleep apnea: Patient no had CPAP for the last year (5) GERD (gastroesophageal reflux disease): Pantoprazole 40mg PO BID (6) Glioblastoma multiforme of frontal lobe: Ongoing chemotherapy - follow up with Dr Plummer as outpatient. Admission and Anticipated Discharge Date Admission Date: September 10, 2020 Results & Data Results & Data ([facility]) Vital Signs (Past 12 Hours) Vital Signs Temp Pulse Pulse Resp BP BP Pulse Ox 09/11/20 03:19 97.5 F L 81 18 117/80 94 09/11/20 00:06 71 09/10/20 23:11 97.5 F L 70 16 99/56 L 95 09/10/20 19:37 97.9 F 83 16 117/82 98 PG Care Time/CCT Total # of Minutes Spent Total Time Spent with Patient: Total time spent is greater than 50% in coordination of care (as documented) at patient's floor/unit and/or counseling patient: Coding Diagnoses Seizure-like activity R56.9 Seizure disorder G40.909 Diabetes mellitus E11.9 Sleep apnea G47.30 GERD (gastroesophageal reflux disease) K21.9 Glioblastoma multiforme of frontal lobe C71.1
--- NOTE | 2020-09-11 08:32 | Electroencephalogram ---
EEG Procedure Note Date of Service September 11, 2020 Start / End Times Start Time: 0638 End Time: 06 Referring Physician Jd Arnett History [age]-year-old with seizure-like activity September 10. Home Medication List Medication Instructions Recorded Confirmed Type amlodipine 10 mg PO QAM 07/31/18 09/10/20 History levetiracetam 1,000 mg PO QAM 07/31/18 09/10/20 History levetiracetam 1,500 mg PO QPM 07/31/18 09/10/20 History lisinopril 10 mg PO QAM 07/31/18 09/10/20 History metformin 1,000 mg PO BID 07/31/18 09/10/20 History pantoprazole 40 mg PO BID 07/31/18 09/10/20 History sertraline 100 mg PO QPM 07/31/18 09/10/20 History lorazepam [Ativan] 0.5 mg PO DIRECTED PRN 08/31/18 09/10/20 History melatonin 5 mg PO HS PRN 01/20/20 09/10/20 History baclofen 10 mg PO BID 09/10/20 09/10/20 History ondansetron HCl 8 mg PO UD PRN 09/10/20 09/10/20 History risperidone 0.25 mg PO BID 09/10/20 09/10/20 History Inpatient Medication List Baclofen (Baclofen 10 Mg Tab) 10 mg PO BID HARDIK Stop: 10/10/20 20:59 Last Admin: 09/10/20 20:12 Dose: 10 mg Documented by: [id number] Heparin Sodium (Porcine) (Heparin 100 Unit/Ml 5ml Flush) 5 ml FLUSH PRN PRN PRN Reason: Flush Stop: 10/10/20 19:11 Last Admin: 09/10/20 20:11 Dose: 5 ml Documented by: [id number] Levetiracetam (Levetiracetam 500 Mg Tab) 1,500 mg PO QPM HARDIK Stop: 10/10/20 20:59 Last Admin: 09/10/20 20:12 Dose: 1,500 mg Documented by: [id number] Lorazepam (Lorazepam 0.5 Mg Tab) 0.5 mg PO HS HARDIK Stop: 10/10/20 20:59 Last Admin: 09/10/20 20:11 Dose: 0.5 mg Documented by: [id number] Melatonin (Melatonin 3 Mg Tab) 3 mg PO HS PRN PRN Reason: Sleep Stop: 10/10/20 17:58 Last Admin: 09/10/20 21:52 Dose: 3 mg Documented by: [id number] Metformin HCl (Metformin Hcl 500 Mg Tab) 1,000 mg PO BIDM HARDIK Stop: 10/10/20 18:14 Last Admin: 09/10/20 18:41 Dose: 1,000 mg Documented by: [id number] Pantoprazole Sodium (Pantoprazole 40 Mg Tab) 40 mg PO BID HARDIK Stop: 10/10/20 20:59 Last Admin: 09/10/20 20:12 Dose: 40 mg Documented by: [id number] Risperidone (Risperidone 0.5 Mg Tablet) 0.25 mg PO BID HARDIK Stop: 10/10/20 20:59 Last Admin: 09/10/20 20:12 Dose: 0.25 mg Documented by: [id number] Sertraline HCl (Sertraline Hcl 100 Mg Tablet) 100 mg PO QPM HARDIK Stop: 10/10/20 20:59 Last Admin: 09/10/20 20:12 Dose: 100 mg Documented by: [id number] Discontinued Medications Gadobutrol (Gadobutrol 30ml Vial) 10 ml IV ONCE ONE Stop: 09/11/20 06:08 Last Admin: 09/11/20 06:07 Dose: 10 ml Documented by: [id number] Sodium Chloride (Nss 1000ml) 1,000 mls @ 999 mls/hr IV .Q1H1M ONE Stop: 09/10/20 12:53 Last Infusion: 09/10/20 13:08 Dose: 0 mls/hr Documented by: [id number] Admin: 09/10/20 11:55 Dose: 999 mls/hr Documented by: [id number] Magnesium Sulfate/Dextrose (Magnesium Sulfate / D5w) 1 gm in 100 mls @ 100 mls/hr IV Q1H HARDIK Stop: 09/10/20 15:30 Last Infusion: 09/10/20 16:56 Dose: 0 mls/hr Documented by: [id number] Admin: 09/10/20 15:56 Dose: 100 mls/hr Documented by: [id number] Infusion: 09/10/20 15:48 Dose: 100 mls/hr Documented by: [id number] Admin: 09/10/20 14:48 Dose: 100 mls/hr Documented by: [id number] Description This is a 21 electrode EEG with a single channel dedicated to limited EKG. The electrodes were placed in accordance with the International 10-20 system. Interpretation The predominant background activity consists of a very well modulated 9 Hz activity, of up to 40 mV in amplitude,seen symmetrically distributed over the posterior head regions bilaterally. This activity attenuates nicely with eye- opening and other alerting procedures. At the F4 and F8 electrodes, there was a "breech" rhythm because he did not have skull in that right frontal portion of his head. The breach rhythm is merely higher amplitude because the skull is missing. It is not an abnormality. Photic stimulation was performed and elicited no change in the background activity and no abnormal responses were seen. Hyperventilation was performed for three minutes with good effort and again no abnormalities were seen. A minimal amount of muscle and movement artifact activity contaminated the recording and did not hinder interpretation to any significant degree. Throughout the waking portion of the recording, no focal abnormalities, abnormal slow activity, or potentially epileptogenic discharges are seen. The patient did not enter the drowsy state or sleep. In summary, this EEG was normal during wakefulness. No focal abnormalities ("breech rhythym noted, right frontal), potentially epileptogenic discharges, or abnormal slow activity was seen. Clinical Correlation The abscence of potentially epileptogenic activity does not exclude a seizure disorder, since interictally, EEGs can be normal. Clinical correlation is required. [facility] EEG Procedure Codes Indication for Procedure (1) Seizure disorder: (2) Glioblastoma: Neurology Neurology: 11638 EEG include record awake & drowsy
[2020-09-11] MEDS: PANTOprazole 40 MG TAB PO SCH (08:38)
[2020-09-11] MEDS: risperiDONE 0.5 MG TABLET PO SCH (08:38)
[2020-09-11] MEDS: BACLOFEN 10 MG TAB PO SCH (08:39)
[2020-09-11] MEDS: metFORMIN HCL 500 MG TAB PO SCH ×2 (08:39→17:39)
[2020-09-11] MEDS ORDERED: MAGNESIUM OXIDE 400 MG TAB PO SCH (09:00)
[2020-09-11] MEDS ORDERED: lisinopril 10 MG TAB PO SCH (09:00)
[2020-09-11] MEDS ORDERED: levETIRAcetam 500 MG TAB PO SCH (09:00)
--- NOTE | 2020-09-11 09:07 | Magnetic Resonance Report ---
MR brain seizure wo/w con: HISTORY: 45 years-old Male seizure like activity, acute seizure like activity. Follow-up study in a patient with history of glioblastoma, prior right-sided craniectomy with right frontal lobe mass rese ction. COMPARISON: Head CT 09/10/2020, brain MRI 08/01/2020. TECHNIQUE: Multiplanar multisequence MRI of the brain was obtained both with and without the use of 1 0.0 mL Gadavist. FINDINGS: Leadite Man localizer images demonstrate no gross extracranial abnormality. Postoperative changes of right frontoparietal craniectomy with right frontal lobe resection redemonstrated. Septated encephalomalaci a of the right frontal lobe appears unchanged. Unchanged T1 hyperintensity adjacent to the resection cavity and also surrounding the areas of aforementioned restricted diffusion suggestive of chronic bl ood products. Enhancement surrounding the resection cavity appears unchanged. No new foci of enhancem ent identified. There is unchanged restricted diffusion involving the splenium of the corpus callosum , within the resection cavity adjacent to the anterior horn right lateral ventricle and also within t he periventricular white matter of the left frontal lobe adjacent to the body of the left lateral carlos tricle on image 17 series 4, unchanged. Increased T2/FLAIR signal within the bilateral cerebral hemis phere is redemonstrated, possibly secondary to postradiation changes. No acute or subacute infarct. Mesial temporal lobes are symmetric and unremarkable. Ex vacuo ventricu lomegaly of the right lateral ventricle. Cerebral venous sinuses and major arterial flow voids appear patent. Mastoid air cells are clear. The paranasal sinuses are generally clear. Orbits and soft tiss ues are within normal limits. IMPRESSION: 1. No acute intracranial abnormality. 2. Postoperative changes of prior right frontal parietal craniectomy with right frontal lobe tumor re section. 3. Unchanged mild enhancement along the resection cavity, likely on a postoperative basis. 4. Unchanged areas of restricted diffusion within the resection cavity adjacent to the anterior horn of right lateral ventricle, splenium of the corpus callosum and periventricular left frontal lobe. Un derlying neoplasm is again not excluded. ACT 112: Negative or not required by law. The above report was generated using voice recognition software. It may contain grammatical, syntax o r spelling errors. Dictated: 09/11/2020 7:34 AM Transcribed: 09/11/2020 8:53 AM Alecia [id number] [facility] Electronically signed by: Abimael Edwards M.D. 09/11/2020 9:05 AM
--- NOTE | 2020-09-11 09:13 | Neurology Consultation ---
Date of Consultation September 11, 2020 Assessment & Plan (1) Seizure disorder: (2) Glioblastoma: (3) Hypomagnesemia: patient has an underlying right frontal glioblastoma multiforme post surgery and radiation therapy on chemotherapy. He has known lesions in the splenium of the corpus callosum and bilaterally in each hemisphere. He has a poor prognosis from this although he continues to get the chemotherapy. EEG today was unremarkable. He has an underlying seizure disorder because of the glioblastoma. He is on 1500 mg of levetiracetam twice daily and had 3 seizures yesterday. Apparently, he did not miss a dose according to his . MRI of the brain does not show any new lesions or more edema. He was on dexamethasone but this was recently discontinued due to side effects. He has hypomagnesemia on admission which can lead to increased brain irritability and seizures. Recommendations: 1. awaiting levetiracetam level. 2. increase magnesium levels to normal range. 3. change levetiracetam to 1000 mg 3 times a day giving it to when he 1st wakes up, mid day, and in the evening before bed. There is no total daily dose change. 4. If he continues to have seizures, I would initiate another anticonvulsant such as lamotrigine. I would start with 25 mg twice daily and titrate from there. 5. follow-up in Neurology Overall, I spent a total of 70 minutes with this case, including review of records, review of MRI films with Dr. Allen, direct Evaluation the patient at bedside, and discussion of the case with the patient at bedside and Dr. Hinds including differential diagnosis and treatment options. History of Present Illness Reason for Consultation: Patient is a 45-year-old, who I was asked to see at the request of Dr. Arnett, for neurologic consultation regarding seizures and history of glioblastoma multiforma Requesting Physician: Dr. Arnett Attending Physician: Juan Diego Hinds MD History of Present Illness patient was having headaches and then was diagnosed with right frontal glioblastoma multiform several years ago. He went to [facility] for surgery and then had radiation therapy following here in [place]. Apparently, he is on chemotherapy- irinotecan, for the last 6 months. He is also on avastin every 2 weeks. dexamethasone was giving him side effects so he was discontinued recently on this. Since his surgery he has had seizures and has been on Keppra. Levetiracetam 1500 mg twice daily has kept him from having seizures for the last year. He is followed by Dr. Plummer in Oncology. Patient admits to missing his levetiracetam dosage in the morning of September 10. However, the patient's stated that he usually gets his morning dose at noon and he had not received his usual morning dose at that time he had his shower and had the seizures. He was in the shower in the Morning when he apparently slipped and fell and had a total of 3 generalized seizures. He was brought to the emergency room. he arrived to the emergency room September 10 at 11:52 a.m. with temperature 37 .3, pulse 70s and regular, blood pressure 97/64 with an O2 saturation of 100%. He had no further seizures in the emergency room. A levetiracetam level is pending. He had some post seizure confusion. This morning nursing reports no seizures overnight and he is doing well. He had some initial confusion this morning but is fairly cooperative and answers questions fairly well. Patient does not remember much about the seizures he had the shower yesterday but his knees hurt. He has no numbness or weakness of the new nature and has no headache or blurry vision. He does not feel that he is confused. CBC showed anemia and sed rate was 51. CRP was elevated 2.0. Chem profile showed a glucose of 137 and a magnesium was low at 1.3 today prolactin was elevated yesterday at 57. CT scan of the head showed no acute changes. MRI of the brain revealed postop changes in the right frontal lobe as well as some tumor residual in that area. There is some enhancing areas in the splenium of the corpus callosum and other areas of the brain deep white matter bilaterally. I reviewed these films with Dr. Allen. There was no new edema compared to the last study also. EEG showed a breach rhythm in the right frontal because of the lack of skull in that area but otherwise it was unremarkable with no focal findings or potentially epileptogenic discharges. Allergies Allergy/AdvReac Type Severity Reaction Status Date / Time No Known Allergies Allergy Verified 09/10/20 12:25 Home Medications Medication Instructions Recorded Confirmed Type amlodipine 10 mg PO QAM 07/31/18 09/10/20 History levetiracetam 1,000 mg PO QAM 07/31/18 09/10/20 History levetiracetam 1,500 mg PO QPM 07/31/18 09/10/20 History lisinopril 10 mg PO QAM 07/31/18 09/10/20 History metformin 1,000 mg PO BID 07/31/18 09/10/20 History pantoprazole 40 mg PO BID 07/31/18 09/10/20 History sertraline 100 mg PO QPM 07/31/18 09/10/20 History lorazepam [Ativan] 0.5 mg PO DIRECTED PRN 08/31/18 09/10/20 History melatonin 5 mg PO HS PRN 01/20/20 09/10/20 History baclofen 10 mg PO BID 09/10/20 09/10/20 History ondansetron HCl 8 mg PO UD PRN 09/10/20 09/10/20 History risperidone 0.25 mg PO BID 09/10/20 09/10/20 History Patient History Medical History Diabetes mellitus type 2 niddm GERD (gastroesophageal reflux disease) Glioblastoma multiforme of frontal lobe (08/26/16) "Mental status changes 08/22/2016" Finding of a right frontal lobe mass 5.5 cm Status post bicoronal incision with right frontal craniotomy with stereotactic volumetric resection of the right frontal brain tumor 08/26/2016 (dc [facility]) Glioblastoma WHO grade 4 Incision and drainage of wound infection 09/22/2016" (Dr. Mcdonald Oncology @ [facility]) Hyperlipidemia Obesity Seizure disorder Single episode per pulm 11/12/17. Had a focal seizure 07/2018. Takes Keppra BID. Sleep apnea Severe, on CPAP. Surgical History H/O craniotomy With tumor debulkingKYM IN [place] [facility] 08/2016. Post op site infection with surgical debridement (09/2016). H/O oral surgery H/O vasectomy S/P craniotomy REMOVAL OF BONE FLAP ON RIGHT FRONTAL LOBE (05/2017 AT [facility]) Social History Smoking Status: Never smoker Second Hand Exposure: No; Do You Dip or Chew Tobacco: No; Tobacco Cessation Education Requested by Patient: No Hx Alcohol Use: Yes Alcohol type: beer and hard liquor Hx Substance Use: No Preferred Language: Romanian Communication Ability: Effective Visual Impairment: No Limitations Pruner Required: No Beliefs That Will Affect Care: Cheondoism Current Living Situation: Spouse Current Living Situation Comment: lives with Other Information That Helps Us Care for You: No Feels Safe at Home: Yes Safety Concerns: Feels Safe At This Time Assistive Devices: CPAP Assistive Devices Comment: pt states he wears a C-pap at h.s. Review of Systems Constitutional: + weakness; no fever and no fatigue Eyes: no diplopia, no eye pain and no worsening vision Ear, Nose, Mouth, Throat: no ear pain, no tinnitus, no hearing loss, no dizziness, no hoarseness and no dysphagia Respiratory: no cough and no dyspnea Cardiovascular: no chest pain, no palpitations and no lightheadedness Gastrointestinal: no abdominal pain, no nausea and no vomiting Musculoskeletal: + joint pain ( Bilateral knees); no back pain, no neck pain, no radicular pain and no myalgia Integumentary: no rash and no lesions Neurologic: + localized weakness; no gait abnormality, no generalized weaknes s, no tingling, no numbness, no tremor(s), no abnormal movements, no headache(s) , no abnormal speech, no confusion and no memory loss Psychiatric: no depression, no irritability, no anxiety, no difficulty concentrating, no confusion and no hallucinations Endocrine: no fatigue and no flushing Hematologic / Lymphatic: no easy bleeding and no easy bruising Allergy / Immunological: no urticaria and no problem reported Exam (Neuro) Physical Exam: The patient is left-handed. The patient is awake, alert, and attentive. Speech is normal without any aphasia or dysarthria. he can name objects, repeat phrases, and has normal spontaneous speech. Mentation and thought processes are intact, with orientation to person, place and time, and normal fund of knowledge. Attention and concentration are normal. Mood and affect are normal and appropriate. General appearance and grooming are normal. Short and long-term memory are reasonable, but he has some memory deficit short term. Pupils are 4 mm bilaterally and reactive to light. Extraocular eye muscles are intact without nystagmus. Visual acuity and visual guillen seem normal grossly to confrontation. There are no deficits to sensation in the face in all 3 distributions of the fifth cranial nerve bilaterally. Corneal reflexes are positive bilaterally. Facial strength and symmetry was normal bilaterally. Hearing seems normal to whisper and finger rub bilaterally. Palate moves well without asymmetry. There is normal sternocleidomastoid and trapezius (shoulder shrug) strength bilaterally. Tongue is midline with good strength bilaterally. 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 Neck has a full range of motion without discomfort. There are no cervical bruits bilaterally. There are no cranial or ocular bruits. Heart is without murmur. There is a regular rhythm and rate. Cervical, thoracic, and lumbar spine are nontender to palpation. Gait was not tested but stance sitting up in bed was reasonable. With outstretched arms there is no drift. There are no resting, postural, or action tremors. There is no ataxia with finger to nose testing. There is good facility in the hands. No other abnormal involuntary movements are noted. Motor strength is 5/5 diffusely in the Right arm including deltoids, biceps, triceps, brachioradialis, wrist flexors and extensors, cloth cutting inspector, and intrinsic hand muscles. Motor strength is 5/5 diffusely in the right leg including hip flexors, quadriceps, hamstrings, gastrocnemius, tibialis anterior, tibialis posterior, and Peroneii muscles. the left arm and leg muscles were 4+/ 5 diffusely. Toe extensors are normal and there is good bulk in the extensor digitorum brevis muscles bilaterally. The limbs have good tone without rigidity or spasticity. There is no atrophy noted in the muscles. Muscle bulk is normal, there is no tenderness to palpation, no myotonia to percussion, and no fasciculations seen. Sensory examination is intact to touch and pin throughout all 4 limbs diffusely. Reflexes are 1/4 in the biceps, triceps, brachioradialis, quadriceps, and Achilles tendons bilaterally. There is no clonus bilaterally. Toes are downgoing with plantar stimulation bilaterally. Peripheral pulses are present and of normal quality distally in all 4 limbs. There is no peripheral edema noted in the limbs. Results & Data ([facility]) Vital Signs (Past 12 Hours) Vital Signs Temp Pulse Pulse Resp BP BP Pulse Ox 09/11/20 07:36 36.6 C 75 20 106/73 98 09/11/20 03:19 36.4 C L 81 18 117/80 94 09/11/20 00:06 71 09/10/20 23:11 36.4 C L 70 16 99/56 L 95 PG Care Time/CCT Total # of Minutes Spent Total Time Spent with Patient: Total time spent is greater than 50% in coordination of care (as documented) at patient's floor/unit and/or counseling patient: Coding Level of Care Code 65827 Inpt Consult Level 5 Diagnoses Seizure disorder G40.909 Glioblastoma C71.9 Hypomagnesemia E83.42 Time Spent (min) 70
[2020-09-11] MEDS: MAGNESIUM SULFATE / D5W 1 GM/100 ML BAG IV SCH ×2 (11:33→13:35)
[2020-09-11] MEDS: HEPARIN 100 UNIT/ML 5ML FLUSH FLUSH PRN ×2 (15:54→17:38)
--- NOTE | 2020-09-11 17:52 | Discharge Summary ---
Date of Service September 11, 2020 Admission HPI Per Admitting Provider Lucas Khan is a 45 year old male with history of Glioblastoma multiforme s/p craniotomy and chemoradiation with complication of an abscess who presents to the ER via EMS after seizure-like activity at home. The patient has a history of seizures although last one was over a year ago. Unable to get much history from patient due to poor memory of the event. He reports feeling his normal self this morning. No dizziness, chest pain or shortness of breath before the fall, although unclear how reliable history this is. History mostly taken from his at bedside. He had sushi to eat prior to a shower this morning. While in the shower he had an unwitnessed fall, unknown if seizure activity after falling. His and sons got him up at which point he collapsed to the floor going limp. He had shaking similar to his prior seizures on the floor for around 5 minutes. After this they tried to get him up to a chair and he went limp again and fell to the floor, again with some shaking activity lasting for a few min utes. Baseline mobility is walking without a walker. In the ER no further seizure activity is warranted. Principal Diagnosis Seizure secondary to glioblastoma of the brain with previous surgical intervention. Negative EEG Neurology recommendations to adjust medication Discharge Exam The patient appeared well he is obvious cranial deformities from previous surgery and is slow of mentation Vital signs as documented. Lungs are clear to auscultation and appear unlabored Cardiac exam, Rhythm is regular.. No murmurs, rubs or gallops. Abdominal exam reveals normal bowel sounds, soft non tender, no masses Extremities are nonedematous and both pedal pulses are normal. Neurologic exam is alert and oriented, x3 is able to ambulate short distances in the care of nursing today as reported by his assigned nurse Skin is without bruises or rashes Discharge Data Allergies Allergy/AdvReac Type Severity Reaction Status Date / Time No Known Allergies Allergy Verified 09/10/20 12:25 Consultations 09/10/20 15:08 ED Decision to Admit Stat 09/10/20 19:37 Consult Neurology Routine Ordered Studies 09/10/20 11:53 CT head/brain wo con Stat 09/11/20 17:59 MR brain seizure wo/w con Routine Hospital Course (1) Seizure-like activity: Suspect vasovagal due to shower, chemotherapy, antihypertensives, lack of dexamethasone. random Cortisol level 16 on 09/10/20 Hold antihypertensives, amlodipine, but Continue lisinopril. MRI brain with and without contrast seizure protocol EEG negative for seizure activity Consult neurology recommending changing Keppra doses to 1000 3 times daily and if patient has breakthrough seizures on I consider lamotrigine 25 twice daily. Repleted the patient's magnesium prior to discharge with continuation of oral magnesium at home I did personally speak to his regarding ability to support him at home she is completely capable of supporting at home and wished for him to return home as she understands he has a shortened time on earth and wants to provide him with as much comfort as he can (2) Seizure disorder: Continue , keppra change dosing to 1000 3 times daily, level pending at time of discharge (3) Diabetes mellitus: No BSG patient has a needlestick phobia Continue Metformin 1 g p.o. twice daily (4) Sleep apnea: Patient no had CPAP for the last year (5) GERD (gastroesophageal reflux disease): Pantoprazole 40mg PO BID (6) Glioblastoma multiforme of frontal lobe: Ongoing chemotherapy - follow up with Dr Plummer as outpatient. Total Time Total Time Spent Total Time Spent (In Minutes): Discharge 30 including discussion with patient's Discharge Plan Discharge Items Patient Disposition: Home - Home Health Services Reason For Visit: SEIZURES Discharge Diagnosis: seizure Condition on Discharge: Good Activity: Resume your previous activity Non-emergency contact: Primary Care Provider Call non-emergency contact if: you have any medication questions and your sympto ms worsen Follow-up/Referrals: Kris Soler [Primary Care Provider] - 09/13/20 9:10 am (Your appointment is with Dr Soler's resident, Dr Schafer. If you have any questions or need to change this appointment please call [phone].) Diet: Regular Ambulatory Orders: Basic Metabolic Panel (Routine) Timeframe: 3 Days Location: Determined by Patient Ordered By: Juan Diego Hinds Magnesium (Routine) Timeframe: 3 Days Location: Determined by Patient Ordered By: Juan Diego Hinds Addtl Attending Provider Instructions: please alter your Keppra to 1000mg three times a day roughly 8 hours apart you did have a brainwave test, EEG, that did not show any active seizure activity currently If you have additional seizures Dr Roman the Neurologist recommends considering an additional medicine, lamotrigine 25 mg twice a day you did have a low magnesium level that may make seizures more likely to occur, you were given some magnesium IV to replace you low level take a daily magnesium supplement please stop your amlodipine, if blood pressure remains low consider stopping the lisinopril also please follow up with your primary care this week Pending Studies at Discharge: No Stand-Alone Forms: My [facility], Smoking Cessation Medications and DC Order Prescriptions: New magnesium 250 mg tablet 250 mg PO DAILY Qty: 30 RF: 0 Continued sertraline 100 mg tablet 100 mg PO QPM RF: 0 pantoprazole 40 mg tablet,delayed release (DR/EC) 40 mg PO BID RF: 0 metformin 1,000 mg tablet 1,000 mg PO BID RF: 0 lisinopril 10 mg tablet 10 mg PO QAM RF: 0 lorazepam [Ativan] 0.5 mg Tablet 0.5 mg PO DIRECTED PRN (Reason: Anxiety) RF: 0 melatonin 5 mg Tablet 5 mg PO HS PRN (Reason: Sleep) RF: 0 ondansetron HCl 8 mg tablet 8 mg PO UD PRN (Reason: Nausea) RF: 0 risperidone 0.25 mg tablet 0.25 mg PO BID RF: 0 baclofen 10 mg tablet 10 mg PO BID RF: 0 Changed levetiracetam 500 mg tablet 1,000 mg PO TID Qty: 180 RF: 5 Discontinued levetiracetam 500 mg tablet 1,500 mg PO QPM RF: 0 amlodipine 10 mg tablet 10 mg PO QAM RF: 0 Discharge Orders: Discharge Order (Routine); Ordered 09/11/20 Ordered By: Juan Diego Hinds Admission Data Admit Date/Time: 09/10/20 15:31 Attending Provider: Juan Diego Hinds Admit Provider: Jd Arnett Primary Care Provider: Kris Soler Other Providers: Jd Arnett ; Parminder Jaramillo Other Interventions: Discharge Summary Assessment (RN) Last Done: 09/11/20 15:36 Coding Level of Care Code D/C Day Management >30 mins Diagnoses Seizure-like activity R56.9 Seizure disorder G40.909 Diabetes mellitus E11.9 Sleep apnea G47.30 GERD (gastroesophageal reflux disease) K21.9 Glioblastoma multiforme of frontal lobe C71.1
== END 2020-09-11 18:00 | disposition home health service (06) | DRG 101 ==
LOC: ED 11:46 → SUATTDRO 15:31 → 2N 15:31